=== PATIENT | female | born 1965 | race Caucasian/White ===

== ENCOUNTER 2022-10-08 15:20 | Inpatient (IN) | payer OTHER ==
[2022-10-08 16:42] LABS: Absolute Lymphocytes (CBC) 2.4 K/uL (0.7-4.9); Hematocrit 37.6 % (36.0-45.0); Lymphocytes % 21.6 % (15.3-44.8); MCV 83.4 fL (80-100); RBC Red Blood Cell Count 4.51 M/uL (3.86-4.86)
[2022-10-08 16:43] LABS: Protime INR 1.48
--- NOTE | 2022-10-08 16:48 | RAD REPORT ---
EXAM DESCRIPTION: RAD - Forearm Left - 10/08/2022 4:42 pm CLINICAL HISTORY: PAIN COMPARISON: No comparisons FINDINGS/IMPRESSION: No acute fracture. No malalignment. No significant focal degenerative changes.
--- NOTE | 2022-10-08 16:49 | RAD REPORT ---
EXAM DESCRIPTION: RAD - Foot Right 3 View - 10/08/2022 4:42 pm CLINICAL HISTORY: PAIN COMPARISON: No comparisons FINDINGS/IMPRESSION: No acute fracture. No malalignment. Mild degenerative changes are present at th e first MTP joint. Mild midfoot degenerative changes and calcaneal spurring.
[2022-10-08 16:51] LABS: SARS-COV-2 RT PCR NEGATIVE (NEGATIVE)
--- NOTE | 2022-10-08 16:51 | RAD REPORT ---
EXAM DESCRIPTION: RAD - Tib Fib Right - 10/08/2022 4:42 pm CLINICAL HISTORY: PAIN COMPARISON: No comparisons FINDINGS/IMPRESSION: No acute fracture. No malalignment. No significant focal degenerative changes.
--- NOTE | 2022-10-08 16:52 | RAD REPORT ---
EXAM DESCRIPTION: RAD - Chest Single View - 10/08/2022 4:42 pm CLINICAL HISTORY: DYSPNEA COMPARISON: No comparisons FINDINGS: Lines: None. Lungs: Mild diffuse prominence of the pulmonary interstitium. Pleural: No significant pleural effusions or pneumothorax. Cardiac: Cardiomegaly. Mediastinum: Within normal limits. Bones: No acute fractures. Other: None IMPRESSION: Possible interstitial edema. Cardiomegaly.
[2022-10-08 16:53] LABS: Albumin 3.5 g/dL (3.4-5.0); Bilirubin Direct 0.1 mg/dL (0-0.2); Bilirubin Total 0.4 mg/dL (0.2-1.0); Magnesium 2.1 mg/dL (1.8-2.4); Potassium 4.9 mmol/L (3.5-5.1); Protein, Total 8.2 g/dL (6.4-8.2); Troponin High Sensitivity 56.5 pg/mL (<58.9)
[2022-10-08] MEDS ORDERED: METHYLPREDNISOLONE 125 MG INJ ONE (16:56)
[2022-10-08] MEDS ORDERED: IPRATROPIUM BROM 0.5MG/2.5ML ONE (16:56)
[2022-10-08] MEDS ORDERED: ALBUTEROL 2.5 MG/3 ML NEB SOL ONE (16:56)
--- NOTE | 2022-10-08 19:54 | EDPHYS ---
Physician Documentation [facility] Name: Zoraida Mcleod Age: 57 yrs Sex: Female : 1965 Arrival Date: 10/08/2022 Time: 15:22 Bed 24 Private MD: ED Physician Fitz Ewing HPI: 10/08 18:06 This 57 yrs old Female presents to ER via Ambulatory with complaints of Breathing kb Difficulty, Fall Injury, Foot Injury. 18:06 The patient has shortness of breath at rest. Onset: The symptoms/episode began/occurred kb yesterday. Duration: The symptoms are continuous. The patient's shortness of breath is aggravated by exertion, is alleviated by nothing. Associated signs and symptoms: Pertinent positives: fever. Severity of symptoms: At their worst the symptoms were moderate in the emergency department the symptoms are unchanged. The patient has experienced similar episodes in the past. The patient has not recently seen a physician. Pt reports shortness of breath that started yesterday afternoon. Reports she had three syncopal episodes as well. States she had a fever at home. . Historical: - Allergies: 15:33 Morphine; ll1 - PMHx: 15:33 COPD; Hypertensive disorder; ll1 - PSHx: 15:33 Tonsillectomy; "tubes tied"; ll1 - Immunization history:: Client reports having NOT received the Covid vaccine. - Social history:: Smoking status: Patient reports the use of cigarette tobacco products, smokes one-half pack cigarettes per day. ROS: 18:05 Constitutional: Negative for fever, chills, and weight loss. kb 18:05 Constitutional: Positive for fever. 18:05 Respiratory: Positive for dyspnea on exertion, shortness of breath. 18:05 Neuro: Positive for syncope. 18:05 All other systems are negative. Exam: 17:06 ECG was reviewed by the Attending Physician. kb 18:05 Constitutional: This is a well developed, well nourished patient who is awake, alert, kb and in no acute distress. Head/Face: Normocephalic, atraumatic. ENT: Moist Mucous membranes Cardiovascular: Regular rate and rhythm with a normal S1 and S2. No gallops, murmurs, or rubs. No pulse deficits. Abdomen/GI: Soft, non-tender. No distention Skin: Warm, dry with normal turgor. Normal color. MS/ Extremity: Pulses equal, no cyanosis. Neurovascular intact. Full, normal range of motion. Neuro: Awake and alert, GCS 15, oriented to person, place, time, and situation. Moves all extremities. Normal gait. Psych: Awake, alert, with orientation to person, place and time. Behavior, mood, and affect are within normal limits. 18:05 Respiratory: mild respiratory distress is noted, Respirations: labored breathing, that is mild, Breath sounds: are clear throughout. Vital Signs: 15:29 BP 157 / 107; Pulse 122; Resp 18; Pulse Ox 91% on R/A; eh3 15:34 BP 157 / 107; Pulse 120; Resp 24; Temp 98.1(O); Pulse Ox 95% on R/A; Height 5 ft. 2 in. ll1 (157.48 cm); Pain 5/10; 16:30 BP 143 / 95; Pulse 112; Resp 20; Pulse Ox 95% on 3 lpm NC; eh3 17:30 BP 143 / 95; eh3 18:30 BP 141 / 76; Pulse 105; Resp 21; Pulse Ox 94% on 3 lpm NC; eh3 19:30 BP 143 / 97; Pulse 101; Resp 26; Pulse Ox 93% on 3 lpm NC; eh3 21:30 BP 145 / 74; Pulse 110; Resp 20; Pulse Ox 97% on 3 lpm NC; eh3 22:30 BP 145 / 74; Pulse 110; Resp 22; Pulse Ox 97% on R/A; eh3 MDM: 15:25 Patient medically screened. kb 18:05 Data reviewed: vital signs, nurses notes. Data interpreted: Pulse oximetry: on room air kb is 95 %. Interpretation: normal. 19:53 Counseling: I had a detailed discussion with the patient and/or guardian regarding: the kb historical points, exam findings, and any diagnostic results supporting the discharge/admit diagnosis, lab results, radiology results, the need for further work-up and treatment in the hospital. Physician consultation: Shanita Manuel PA-C was contacted at 19:53, regarding admission, to the telemetry unit. patient's condition. 10/08 15:30 Order name: Basic Metabolic Panel; Complete Time: 16:59 kb 10/08 15:30 Order name: CBC with Diff; Complete Time: 16:59 kb 10/08 15:30 Order name: CPK; Complete Time: 16:59 kb 10/08 15:30 Order name: Hepatic Function; Complete Time: 16:59 kb 10/08 15:30 Order name: Magnesium; Complete Time: 16:59 kb 10/08 15:30 Order name: Protime (+inr); Complete Time: 16:44 kb 10/08 15:30 Order name: Ptt, Activated; Complete Time: 16:44 kb 10/08 15:30 Order name: Troponin High Sensitivity; Complete Time: 16:59 kb 10/08 15:32 Order name: Blood Culture Adult (2) kb 10/08 15:32 Order name: Lactate w/ 2H reflex if indic.; Complete Time: 16:45 kb 10/08 15:32 Order name: COVID-19/FLU A+B; Complete Time: 16:59 kb 10/08 17:02 Order name: BNP; Complete Time: 19:25 kb 10/08 17:02 Order name: D-Dimer; Complete Time: 19:41 kb 10/08 21:48 Order name: Urine Dipstick-Ancillary; Complete Time: 21:50 EDMS 10/08 15:30 Order name: EKG; Complete Time: 15:31 kb 10/08 15:30 Order name: Cardiac monitoring; Complete Time: 15:47 kb 10/08 15:30 Order name: EKG - Nurse/Tech; Complete Time: 15:47 kb 10/08 15:30 Order name: IV Saline Lock; Complete Time: 18:00 kb 10/08 15:30 Order name: Labs collected and sent; Complete Time: 18:00 kb 10/08 15:30 Order name: NPO; Complete Time: 15:31 kb 10/08 15:30 Order name: O2 Per Protocol; Complete Time: 15:47 kb 10/08 15:30 Order name: Chest Single View XRAY; Complete Time: 16:59 kb 10/08 15:30 Order name: Forearm Left XRAY; Complete Time: 16:59 kb 10/08 15:30 Order name: Tib Fib Right XRAY; Complete Time: 16:59 kb 10/08 15:30 Order name: Foot Right 3 View XRAY; Complete Time: 16:59 kb 10/08 19:40 Order name: CT Chest For PE Angio; Complete Time: 22:48 kb 10/08 15:30 Order name: O2 Sat Monitoring; Complete Time: 15:31 kb 10/08 15:30 Order name: Urine Dipstick-Ancillary (obtain specimen); Complete Time: 22:28 kb 10/08 18:05 Order name: Vital Signs; Complete Time: 18:41 kb EC:06 Rate is 114 beats/min. Rhythm is regular. QRS [place] is Normal. [place] interval is normal at kb 136 msec. QRS interval is normal at 90 msec. QT interval is normal at 493 msec. Administered Medications: 18:00 Drug: SOLU-Medrol (methylPrednisoLONE) 125 mg Route: IVP; Site: right antecubital; eh3 18:41 Follow up: Response: No adverse reaction eh3 18:00 Drug: Albuterol 2.5 mg Route: Inhalation; eh3 18:41 Follow up: Response: Wheezing diminished eh3 18:00 Drug: AtroVENT (ipratropium) Aerosol 0.5 mg Route: Inhalation; eh3 18:41 Follow up: Response: Wheezing diminished eh3 20:30 Drug: Lasix (furosemide) 20 mg Route: IVP; Site: right upper arm; eh3 21:48 Follow up: Response: No adverse reaction eh3 Disposition Summary: 10/08/22 19:54 Hospitalization Ordered Hospitalization Status: Observation kb Provider: Issa Lopez Location: Telemetry/MedSurg (observation) kb Condition: Stable kb Problem: new kb Symptoms: are unchanged kb Bed/Room Type: Standard Room Assignment: 209(10/08/22 22:53) eb1 Diagnosis - COPD/ Chronic obstructive pulmonary disease with (acute) exacerbation kb - Unspecified combined systolic (congestive) and diastolic (congestive) heart failure kb Forms: - Medication Reconciliation Form kb - SBAR form kb Addendum: 10/11/2022 20:19 Co-signature as Attending Physician, Fitz Ewing MD I agree with the assessment and r t plan of care. Signatures: Dispatcher [employer] Nidhi Rose, KIRSTEN-C REAL ESTATE LOAN OFFICER-Dilia Murdock RN RN eb1 Brea Zaragoza RN RN ll1 Kayla Bautista RN RN eh3 Shanita Manuel, PA-C PA-C sb4 Fitz Ewing MD MD rt Corrections: (The following items were deleted from the chart) 10/08 22:53 19:54 kb eb1
--- NOTE | 2022-10-08 19:54 | ER ---
Nurse's Notes [facility] Name: Zoraida Mcleod Age: 57 yrs Sex: Female : 1965 Arrival Date: 10/08/2022 Time: 15:22 Bed 24 Private MD: Diagnosis: COPD/ Chronic obstructive pulmonary disease with (acute) exacerbation;Unspecified combined systolic (congestive) and diastolic (congestive) heart failure Presentation: 10/08 15:34 Chief complaint: Patient states: SOB for 2 days. Reports passing out x 3 since last ll1 night. L forearm and R leg pains from fall. Inhalers aren't helping. Fever 101.4 this morning at home. Coronavirus screen: Vaccine status: Patient reports being unvaccinated. Client denies travel out of the [place] in the last 14 days. difficulty breathing, fatigue, fever, headache, muscle pain, shortness of breath, Client presents with at least one sign or symptom that may indicate coronavirus-19. Standard/surgical mask placed on the client. Ebola Screen: Patient denies travel to an Ebola-affected area in the 21 days before illness onset. Initial Sepsis Screen: Does the patient meet any 2 criteria? RR > 20 per min. HR > 90 bpm. Yes Does the patient have a suspected source of infection? Yes: Productive cough/pneumonia. Risk Assessment: Do you want to hurt yourself or someone else? Patient reports no desire to harm self or others. Onset of symptoms was October 07, 2022. 15:34 Method Of Arrival: Ambulatory ll1 15:34 Acuity: VILLA 2 ll1 Triage Assessment: 15:33 General: Appears uncomfortable, Behavior is cooperative, appropriate for age. Pain: ll1 Complains of pain in back Pain currently is 5 out of 10 on a pain scale. Quality of pain is described as aching. Neuro: Reports a syncopal episode weakness. Cardiovascular: Reports lightheadedness, shortness of breath, syncope. Respiratory: Reports shortness of breath on exertion labored breathing Onset: The symptoms/episode began/occurred yesterday, the patient has severe shortness of breath. Historical: - Allergies: 15:33 Morphine; ll1 - PMHx: 15:33 COPD; Hypertensive disorder; ll1 - PSHx: 15:33 Tonsillectomy; "tubes tied"; ll1 - Immunization history:: Client reports having NOT received the Covid vaccine. - Social history:: Smoking status: Patient reports the use of cigarette tobacco products, smokes one-half pack cigarettes per day. Screenin:29 Abuse screen: Denies threats or abuse. Denies injuries from another. Nutritional eh3 screening: No deficits noted. Tuberculosis screening: No symptoms or risk factors identified. Fall Risk Fall in past 12 months (25 points). IV access (20 points). Gait- Weak (10 pts.). [place] Fall Scale indicates High Risk Score (45 or more points). Fall prevention measures have been instituted. Side Rails Up X 2 Placed Close to Nursing Station Frequent Obs/Assessments Occuring Family Present and informed to notify staff if the need to leave the bedside As available patient and family educated on Fall Prevention Program and Strategies. Assessment: 15:29 General: Appears in no apparent distress. uncomfortable, Behavior is cooperative, eh3 appropriate for age, anxious, Smells of alcohol. Pain:. 15:29 Pain: Complains of pain in chest Pain does not radiate. Pain currently is 3 out of 10 eh3 on a pain scale. Quality of pain is described as dull, Pain began 2-3 days ago. Is continuous. Neuro: Level of Consciousness is awake, alert, obeys commands, Oriented to person, place, time, situation. Cardiovascular: Capillary refill < 3 seconds Patient's skin is warm and dry. Rhythm is sinus tachycardia. Respiratory: Airway is patent Respiratory effort is even, labored, Respiratory pattern is regular, symmetrical, Breath sounds with crackles bilaterally. GI: No signs and/or symptoms were reported involving the gastrointestinal system. : No signs and/or symptoms were reported regarding the genitourinary system. EENT: No signs and/or symptoms were reported regarding the EENT system. Derm: No signs and/or symptoms reported regarding the dermatologic system. Musculoskeletal: No signs and/or symptoms reported regarding the musculoskeletal system. Circulation, motion, and sensation intact. Range of motion: intact in all extremities. 16:30 Reassessment: Patient and/or family updated on plan of care and expected duration. Pain eh3 level reassessed. Patient is alert, oriented x 3, equal unlabored respirations, skin warm/dry/pink. 17:30 Reassessment: Patient appears in no apparent distress at this time. Patient and/or eh3 family updated on plan of care and expected duration. Pain level reassessed. Pt removed NC. Verbalized understanding that breathing difficulty and insufficient SpO2 levels will most likely continue if she does not keep the NC in place. 18:30 Reassessment: Patient appears in no apparent distress at this time. Patient and/or eh3 family updated on plan of care and expected duration. Pain level reassessed. 19:30 Reassessment: Patient appears in no apparent distress at this time. Patient and/or eh3 family updated on plan of care and expected duration. Pain level reassessed. Pt did not have NC on. Replaced NC and reiterated importance of keeping NC in place for adequate oxygenation. 20:30 Reassessment: Patient appears in no apparent distress at this time. Patient and/or eh3 family updated on plan of care and expected duration. Pain level reassessed. Patient is alert, oriented x 3, equal unlabored respirations, skin warm/dry/pink. Pt removed all vital sign monitoring devices. Replaced monitors and pt verbalized understanding to leave monitors in place. 21:30 Reassessment: Patient appears in no apparent distress at this time. Patient and/or eh3 family updated on plan of care and expected duration. Pain level reassessed. 22:10 Reassessment: CT notified pt has appropriate IV for CT. bb 22:30 Reassessment: Patient appears in no apparent distress at this time. Patient and/or eh3 family updated on plan of care and expected duration. Pain level reassessed. Vital Signs: 15:29 BP 157 / 107; Pulse 122; Resp 18; Pulse Ox 91% on R/A; 3 15:34 BP 157 / 107; Pulse 120; Resp 24; Temp 98.1(O); Pulse Ox 95% on R/A; Height 5 ft. 2 in. ll1 (157.48 cm); Pain 5/10; 16:30 BP 143 / 95; Pulse 112; Resp 20; Pulse Ox 95% on 3 lpm NC; eh3 17:30 BP 143 / 95; eh3 18:30 BP 141 / 76; Pulse 105; Resp 21; Pulse Ox 94% on 3 lpm NC; eh3 19:30 BP 143 / 97; Pulse 101; Resp 26; Pulse Ox 93% on 3 lpm NC; eh3 21:30 BP 145 / 74; Pulse 110; Resp 20; Pulse Ox 97% on 3 lpm NC; eh3 22:30 BP 145 / 74; Pulse 110; Resp 22; Pulse Ox 97% on R/A; eh3 ED Course: 15:22 Patient arrived in ED. mr 15:24 Nidhi Comer, [facility] kb 15:24 Fitz Ewing MD is Attending Physician. kb 15:28 Kayla Bautista, XU is Primary Nurse. eh3 15:29 Patient has correct armband on for positive identification. Bed in low position. Call 3 light in reach. Side rails up X2. Client placed on continuous cardiac and pulse oximetry monitoring. NIBP monitoring applied. Door closed. Noise minimized. Warm blanket given. 15:29 Arm band placed on right wrist. eh3 15:33 Notified Nurse Practitioner and/or Physician Personnel Psychologist of vital signs. sepsis alert ll1 called. 15:36 Triage completed. ll1 16:15 Initial lab(s) drawn, by me, sent to lab. Inserted saline lock: 22 gauge in right upper iw arm, using aseptic technique. Blood collected. 16:43 Chest Single View XRAY In Process Unspecified. EDMS 16:44 Forearm Left XRAY In Process Unspecified. EDMS 16:44 Tib Fib Right XRAY In Process Unspecified. EDMS 16:44 Foot Right 3 View XRAY In Process Unspecified. EDMS 19:54 Issa Lopez MD is Hospitalizing Provider. kb 21:55 Missed attempt(s): 20 gauge in left antecubital area. Bleeding controlled, band aid bb applied, catheter tip intact. 22:00 Second set of blood cultures drawn by me. Accessed peripheral vein via ultrasound, bb utilizing dynamic ultrasound technique Powerglide midline 18g 10cm to left upper arm using hospital protocol with good blood return and flushes easily pt tolerated well. 22:28 CT Chest For PE Angio In Process Unspecified. EDMS 23:35 No provider procedures requiring assistance completed. Patient admitted, IV remains in [address] Administered Medications: 18:00 Drug: SOLU-Medrol (methylPrednisoLONE) 125 mg Route: IVP; Site: right antecubital; 3 18:41 Follow up: Response: No adverse reaction 3 18:00 Drug: Albuterol 2.5 mg Route: Inhalation; 3 18:41 Follow up: Response: Wheezing diminished eh3 18:00 Drug: AtroVENT (ipratropium) Aerosol 0.5 mg Route: Inhalation; eh3 18:41 Follow up: Response: Wheezing diminished eh3 20:30 Drug: Lasix (furosemide) 20 mg Route: IVP; Site: right upper arm; eh3 21:48 Follow up: Response: No adverse reaction eh3 Medication: 23:35 VIS not applicable for this client. eh3 Outcome: 19:54 Decision to Hospitalize by Provider. kb 23:39 Admitted to Med/surg accompanied by tech, via wheelchair, room 209, with oxygen, Report eh3 called to Eladia 23:39 Condition: stable 23:39 Instructed on the need for admit. 23:39 Patient left the ED. 3 Signatures: Dispatcher [employer] EDMS Nidhi Comer, MEDICAL ASSISTANT DERMATOLOGY-C MEDICAL ASSISTANT DERMATOLOGY-CkYamila Powell mr MaryChey, RN RN Kristin Green, XU MCNAIR iw Brea Zaragoza, RN RN [facility] Kayla Bautista RN RN eh3 Corrections: (The following items were deleted from the chart) 20:06 18:30 Reassessment: Patient appears in no apparent distress at this time. Patient eh3 and/or family updated on plan of care and expected duration. Pain level reassessed. Patient is alert, oriented x 3, equal unlabored respirations, skin warm/dry/pink. eh3 20:07 19:30 Reassessment: Patient appears in no apparent distress at this time. Patient eh3 and/or family updated on plan of care and expected duration. Pain level reassessed. 3 23:34 15:29 General: Appears in no apparent distress. uncomfortable, Behavior is cooperative, eh3 appropriate for age, anxious, eh3
[2022-10-08] MEDS ORDERED: FUROSEMIDE 20 MG/ 2ML VIAL ONE (20:28)
[2022-10-08 21:48] LABS: Urine Blood 1+ (Negative); Urine Glucose Negative (Negative); Urine Protein 2+ (Negative); Urine Specific Gravity >=1.030 (1.005-1.030)
--- NOTE | 2022-10-08 22:45 | RAD REPORT ---
EXAM DESCRIPTION: CT - Chest For Pe Angio - 10/08/2022 10:27 pm CLINICAL HISTORY: shortness of breath, elevated dd COMPARISON: No comparisons TECHNIQUE: Dynamically enhanced axial 3 mm thick images of the chest were obtained during administra tion of <100> mL Isovue 370 IV contrast. Coronal and oblique reconstruction images were generated and reviewed. Exam utilizes a protocol for optimal evaluation of pulmonary arterial tree. Maximum intensity projections 3D imaging was utilized All CT scans are performed using dose optimization technique as appropriate and may include automated exposure control or mA/KV adjustment according to patient size. FINDINGS: Chest Wall: No suspicious thyroid nodules or pathologic lymphadenopathy. Lungs: Solid right lower lobe pulmonary nodule measuring 14 millimeters. Interlobular septal thickeni ng. Pleura: Small left pleural effusion. Mediastinum/justine: No pathologic lymphadenopathy. Pulmonary arteries/Aorta: No filling defect identified. No aortic aneurysm. Heart: No significant pericardial effusion. Normal heart size. Upper abdomen: No acute abnormality. Bones: No acute abnormality. IMPRESSION: Negative for pulmonary embolism. Interlobular septal thickening and small effusions cons istent with interstitial edema. Indeterminate right lower lobe nodule. Neoplasm is within the differential. Consider PET/CT or [address] follow-up.
--- NOTE | 2022-10-08 23:14 | P.HP ---
Certification for Inpatient Patient admitted to: Inpatient With expected LOS: >2 Midnights Patient will require the following post-hospital care: None Practitioner: I am a practitioner with admitting privileges, knowledge of patient current condition, hospital course, and medical plan of care. Services: Services provided to patient in accordance with Admission requirements found in Title 42 Section 412.3 of the Code of Federal Regulations Patient History Date of Service: 10/09/22 Reason for admission: COPD/CHF Exacerbation History of Present Illness: Patient is a 57-year-old female with past medical history significant of type 2 diabetes [id number], hypertension, multiple CVAs on Xarelto, COPD, and factor V Leiden who presented to the ED with complaints of shortness of breath, cough, syncopal episodes, and fever. Patient reports that she has been having difficulty breathing for 2 days now which has caused her to pass out and fall (no head trauma). She was afebrile in ED but code sepsis was called as she met SIRS criteria with tachycardia, tachypnia, and respiratory source. Labs are significant for WBC 11, D-dimer 5106, BNP 2000. COVID and flu negative. Chest CT negative for PE but did show interlobular septal thickening and small effusions consistent with interstitial edema. Indeterminate right lower lobe nodule- Neoplasm is within differential. Patient denies prior diagnosis of COPD or CHF. She was given 125 mg Solu-Medrol, breathing treatment, 20 mg Lasix in the ED. she was additionally placed on supplemental O2. Patient has improved mildly with treatment and is admitted for further management. Allergies morphine Allergy (Verified 10/08/22 23:52) Anaphylaxis Home medications list reviewed: Yes - Past Medical/Surgical History Diabetic: Yes -: Type 2 Diabetes, Non-Insulin Dependent -: Factor V Leiden -: CVAs -: Hypertension -: Tubal Ligation -: Tonsillectomy Psychosocial/ Personal History: Patient lives at home alone. - Family History Mother -: Cancer Notes: unknown kind Father -: Cancer Notes: unknown kind paternal grandmother -: Diabetes - Social History Smoking Status: Current every day smoker Alcohol use: No CD- Drugs: No Caffeine use: Yes Place of Residence: Home Review of Systems General: Fever Respiratory: Cough, Shortness of Breath Physical Examination - Physical Exam General: Alert, In no apparent distress, Oriented x3, Obese HEENT: Atraumatic, PERRLA, EOMI, Sclerae nonicteric Neck: Supple, 2+ carotid pulse no bruit, No LAD, Without JVD or thyroid abnormality Respiratory: Crackles/rales Cardiovascular: Regular rate/rhythm, Normal S1 S2 Gastrointestinal: Normal bowel sounds, No tenderness Musculoskeletal: No tenderness Integumentary: No rashes Neurological: Normal speech, Normal strength at 5/5 x4 extr, Normal tone, Normal affect - Studies Laboratory Data (last 24 hrs) 10/08/22 16:17: PT 16.3 H, INR 1.48, APTT 31.2 10/08/22 16:17: WBC 11.00 H, Hgb 12.1, Hct 37.6, Plt Count 275 10/08/22 16:17: Sodium 139, Potassium 4.9, BUN 11, Creatinine 0.86, Glucose 141 H, Magnesium 2.1, Total Bilirubin 0.4, AST 23, ALT 30, Alkaline Phosphatase 95 Assessment and Plan - Problems (Diagnosis) (1) CHF (congestive heart failure) Current Visit: Yes Status: Acute Qualifiers: Heart failure type: unspecified Heart failure chronicity: acute Qualified Code(s): I50.9 - Heart failure, unspecified (2) COPD with acute exacerbation Current Visit: Yes Status: Acute (3) Hypertension Current Visit: Yes Status: Chronic Qualifiers: Hypertension type: primary hypertension Qualified Code(s): I10 - Essential (primary) hypertension (4) Type 2 diabetes mellitus Current Visit: Yes Status: Acute Qualifiers: Diabetes mellitus halfway insulin use: without halfway use Diabetes mellitus complication status: with hyperglycemia Qualified Code(s): E11.65 - Type 2 diabetes mellitus with hyperglycemia (5) Factor V Leiden Current Visit: Yes Status: Chronic (6) Chronic anticoagulation Current Visit: Yes Status: Chronic - Plan Factor V Leiden/Elevated d-dimer: Chest CT negative for PE. Venous US pending. No obvious swelling/erythema in extremities. Patient reports taking her xarelto consistently. Acute on chronic COPD: Patient denies any diagnosis of COPD. She is an everyday smoker. Scheduled breathing treatments and solumedrol. Pulmonology consulted. She is currently requiring 3L NC. Titrate and wean as tolerated. Nicoderm patch provided. Acute on chronic CHF: Chest CT with interstitial edema and BNP of 2000 suggestive of CHF. Patient has never been diagnosed. Echocardiogram ordered and cardiology consult in place. She received 20 mg lasix IV in ED. Will see how she responds. Reports recent weight gain, although unclear if from fluid or if moreso dietary. No pitting edema appreciated on physical exam. Daily weights. Monitor and replete electrolytes per protocol Reconcile and continue home medications for hypertension/diabetes Xarelto for VTE ppx Full code Discharge Plan: Home Plan to discharge in: Greater than 2 days - Advance Directives Does patient have a Living Will: No Does patient have a Durable POA for Healthcare: No - Code Status/Comfort Care Code Status Assessed: Yes (Full) Critical Care: No Time Spent Managing Pts Care (In Minutes): 50
[2022-10-08] MEDS ORDERED: D50W 25 GM/50 ML SYRINGE IV PRN (23:58)
[2022-10-08] MEDS ORDERED: ONDANSETRON 4 MG/2 ML VIAL IV PRN (23:58)
[2022-10-08] MEDS ORDERED: GLUCAGON 1 MG/VIAL IM PRN (23:58)
[2022-10-09] MEDS ORDERED: D10W 125 ML IV PRN (00:09)
[2022-10-09] MEDS: NICOTINE 21 MG/PAT TD PRN ×2 (00:22→23:23)
[2022-10-09] MEDS: METHYLPREDNISOLONE 40 MG INJ IV SCH ×3 (00:22→17:59)
[2022-10-09] MEDS: HYDROCODONE/APAP 10/325 TAB PO PRN ×2 (00:26→22:03)
[2022-10-09] MEDS: BENZONATATE 100 MG CAP PO PRN ×2 (00:26→08:37)
[2022-10-09] MEDS ORDERED: IPRATROPIUM BROM 0.5MG/2.5ML NEB SCH (02:00)
[2022-10-09] MEDS ORDERED: ALBUTEROL 2.5 MG/3 ML NEB SOL NEB SCH (02:00)
[2022-10-09 04:36] LABS: Absolute Lymphocytes (CBC) 0.6 K/uL (0.7-4.9); Hematocrit 33.3 % (36.0-45.0); Lymphocytes % 7.6 % (15.3-44.8); MCV 82.7 fL (80-100); MPV 8.2 fL (7.6-11.3); RBC Red Blood Cell Count 4.03 M/uL (3.86-4.86)
[2022-10-09 05:07] LABS: Magnesium 1.9 mg/dL (1.8-2.4); Potassium 3.9 mmol/L (3.5-5.1); Thyroid Stimulating Hormone 0.123 uIU/mL (0.360-3.740)
[2022-10-09 05:41] LABS: Blood Morphology Comment NOTED (NOT SEEN); Platelet Estimate ADEQ; Polychromasia 1+
[2022-10-09] MEDS ORDERED: ALBUTEROL 2.5 MG/3 ML NEB SOL NEB PRN (06:03)
[2022-10-09] MEDS ORDERED: IPRATROPIUM BROM 0.5MG/2.5ML NEB PRN (06:03)
[2022-10-09] MEDS: INSULIN -REGULAR HUMAN 50 UNIT/0.5 ML ML SQ SCH ×4 (07:30→20:58)
--- NOTE | 2022-10-09 07:41 | RAD REPORT ---
EXAM DESCRIPTION: USExtrem Venous W Compress Bil10/09/2022 5:34 am CLINICAL HISTORY: elevated d dimer COMPARISON: none FINDINGS: The common femoral, superficial femoral, popliteal and posterior tibial veins bilaterally are compressible and demonstrate augmentation. Doppler demonstrates good flow. Grayscale, color and spectral analysis performed on all vessels IMPRESSION: No evidence of deep venous thrombosis involving either lower extremity.
[2022-10-09] MEDS: POTASS/SODIUM PHOSPHATE 1 PKT POWD.PACK PO SCH ×3 (08:38→10:00)
[2022-10-09] MEDS ORDERED: ENOXAPARIN 40 MG/0.4 ML SQ SCH (09:00)
[2022-10-09] MEDS ORDERED: POTASSIUM CL SA 10 MEQ TAB PO ONE (09:00)
--- NOTE | 2022-10-09 17:30 | P.PN ---
Date of Service: 10/09/22 Subjective: Minimal improvement Continues to feel short of breath, continues with wheeze Denies any swelling in lower extremities today ROS: 10 point ROS as noted above, otherwise negative Physical exam GEN: Alert, oriented, mild distress HEENT: Normal conjunctiva, sclera anicteric CV: Regular rate and rhythm, trace b/l lower extremity edema Pulm: mild labored respirations on 2L NC, bilateral wheeze ABD: Soft, nontender, nondistended Neuro: Normal speech, normal affect Problem list Acute hypoxemic respiratory failure secondary to acute on chronic COPD exacerbation Possible acute CHF exacerbation Hypertension NIDDM 2 Factor V Leiden deficiency on chronic anticoagulation Nicotine dependence Wean oxygen as tolerated Continue Solu-Medrol, nebs, inhalers Does not use oxygen supplementation at home Pulmonology consulted Continues with moderate wheeze on exam CT chest negative for PE, noted some possible interstitial edema Echo ordered Cardiology consulted Patient denies history of CHF Received Lasix 20 mg IV in the ED Confirm home medications VTE: Xarelto Code: Full Dispo: Home, 2-3 days Time Spent Managing Pts Care (In Minutes): 35
[2022-10-09] MEDS: RIVAROXABAN 10 MG TABLET PO SCH (17:59)
[2022-10-09] MEDS: ALPRAZOLAM 1 MG TABLET PO PRN (23:22)
[2022-10-09] MEDS: ACETAMINOPHEN 325 MG TABLET PO PRN (23:33)
[2022-10-10] MEDS: METHYLPREDNISOLONE 40 MG INJ IV SCH ×2 (02:00→08:27)
[2022-10-10 02:12] VITALS: BMI 36.6
[2022-10-10 05:54] LABS: Absolute Lymphocytes (CBC) 1.3 K/uL (0.7-4.9); Hematocrit 34.2 % (36.0-45.0); Lymphocytes % 7.9 % (15.3-44.8); MCV 83.3 fL (80-100); MPV 8.2 fL (7.6-11.3); RBC Red Blood Cell Count 4.11 M/uL (3.86-4.86)
[2022-10-10 06:12] LABS: Potassium 4.7 mmol/L (3.5-5.1)
[2022-10-10] MEDS: INSULIN -REGULAR HUMAN 50 UNIT/0.5 ML ML SQ SCH ×4 (07:30→20:55)
[2022-10-10] MEDS: METFORMIN HCL 500 MG TAB PO SCH ×2 (08:26→16:47)
--- NOTE | 2022-10-10 08:46 | RAD REPORT ---
EXAM DESCRIPTION: Valeria Single View10/10/2022 6:48 am CLINICAL HISTORY: Chest pain COMPARISON: October 08, 2022 FINDINGS: Mild worsening in the mild bilateral interstitial lung opacities. Heart remains enlarged IMPRESSION: These findings probably represent mild CHF
--- NOTE | 2022-10-10 11:27 | P.CNS ---
Date of Consult: 10/10/22 Reason for Consult: Shortness of breath Chief Complaint: COPD/CHF Exacerbation History of Present Illness: Patient is 57 years of age with a metabolic syndrome addition to COPD admitted with shortness of breath no change since admission some interstitial changes on her CT scan suggestive of congestive heart failure b quit smoking about a month ago she is not on any home oxygen or bronchodilators no evidence of thromboembolism She has a history of factor V Leiden Leiden deficiency Allergies morphine Allergy (Verified 10/08/22 23:52) Anaphylaxis Home Medications: ALPRAZolam [Xanax*] 1 mg PO BEDTIME PRN 10/09/22 Albuterol Sulfate [Albuterol Sulfate Hfa] 2 puff IN QID PRN 10/09/22 Amitriptyline HCl 75 mg PO BEDTIME 10/09/22 Carisoprodol [Soma] 350 mg PO TID 10/09/22 Fluticasone Propion/Salmeterol [Wixela 250-50 Inhub] 2 puff IN TID PRN 10/09/22 Hydrocodone Bit/Acetaminophen [Hydrocodon-Acetaminophn 10-325] 10 - 325 mg PO PRN PRN 10/09/22 Losartan Potassium [Cozaar*] 50 mg PO BEDTIME 10/09/22 Metformin HCl 1,000 mg PO BID 10/09/22 Rivaroxaban [Xarelto] 20 mg PO BID 10/09/22 Simvastatin 40 mg PO BEDTIME 10/09/22 - Past Medical/Surgical History Diabetic: Yes -: Type 2 Diabetes, Non-Insulin Dependent -: Factor V Leiden -: CVAs -: Hypertension -: Tubal Ligation -: Tonsillectomy -: tubal ligation Psychosocial/ Personal History: Patient lives at home alone. - Family History Mother Medical History: Cancer Notes: unknown kind Father Medical History: Cancer Notes: unknown kind paternal grandmother Medical History: Diabetes - Social History Smoking Status: Current every day smoker Alcohol use: No CD- Drugs: No Caffeine use: Yes Place of Residence: Home Review of Systems 10-point ROS is otherwise unremarkable General: Weakness Respiratory: Shortness of Breath Physical Examination Temp Pulse Resp BP Pulse Ox 97.7 F 125 H 23 H 138/67 90 L 10/10/22 04:00 10/10/22 04:00 10/10/22 04:00 10/10/22 04:00 10/10/22 04:00 General: Alert, In no apparent distress, Oriented x3, Mild distress HEENT: Atraumatic Neck: Supple Respiratory: Crackles/rales, Expiratory wheezes Cardiovascular: No edema, Regular rate/rhythm, Normal S1 S2 Gastrointestinal: Normal bowel sounds, Soft and benign, Non-distended - Problems (1) Shortness of breath Current Visit: Yes Status: Acute Plan: Patient is 57 years of age admitted with acute dyspnea she has an history of COPD smoking about a month ago she is not any bronchodilators at home call findings suggestive of congestive heart failure she has a small pleural effusion out on IV Lasix labs reviewed no evidence of sepsis I change her over to p.o. prednisone 2D echo with Doppler (2) Factor V Leiden Current Visit: Yes Status: Chronic Plan: History history of strokes possible thromboembolism and is on maintenance dose of Xarelto 20 mg daily echocardiogram has been ordered
--- NOTE | 2022-10-10 15:37 | P.PN ---
Date of Service: 10/10/22 Subjective: feels slightly worse today increased dyspnea, at rest as well no worsening of swelling no fever/chills ROS: 10 point ROS as noted above, otherwise negative Physical exam GEN: Alert, oriented, mild distress HEENT: Normal conjunctiva, sclera anicteric CV: Regular rate and rhythm, trace b/l lower extremity edema Pulm: mild labored respirations on 3L NC, bilateral wheeze ABD: Soft, nontender, nondistended Neuro: Normal speech, normal affect Problem list Acute hypoxemic respiratory failure secondary to acute on chronic COPD exacerbation acute CHF exacerbation Hypertension NIDDM 2 Factor V Leiden deficiency on chronic anticoagulation Nicotine dependence Wean oxygen as tolerated Continue Solu-Medrol, nebs, inhalers Does not use oxygen supplementation at home Pulmonology consulted Continues with moderate wheeze on exam and crackles CT chest negative for PE, noted some possible interstitial edema Echo ordered Cardiology consulted Patient denies history of CHF Received Lasix 20 mg IV in the ED continue IV lasix 40mg daily, monitor I/Os Confirm home medications VTE: Xarelto - home dose Code: Full Dispo: Home, ~2-3 days Time Spent Managing Pts Care (In Minutes): 35
--- NOTE | 2022-10-10 16:34 | EKG ---
Test Date: 2022-10-08 Test Time: 15:41:10 Clinical Data Management Director: VIANCA MEASUREMENT RESULTS: Intervals: Rate: 114 PA: 136 QRSD: 90 QT: 358 QTc: 493 [place]: P: 67 PA: 136 QRS: 67 T: 51 INTERPRETIVE STATEMENTS: Sinus tachycardia Otherwise normal ECG No previous ECG available for comparison Electronically Signed On 10-10-22 16:33:35 COMPOSITOR APPRENTICE by Freddy Venegas
[2022-10-10] MEDS: FUROSEMIDE 40 MG/4 ML VIAL IV SCH (16:46)
[2022-10-10] MEDS: RIVAROXABAN 10 MG TABLET PO SCH (16:47)
--- NOTE | 2022-10-10 19:03 | CON ---
Date of Consultation: 10/09/2022 Reason For Consultation: CHF. History Of Present Illness: This -maum-zps female with history of diabetes, hypertension, history of CVA on Xarelto, COPD, active smoker, and Factor V Leiden mutation presented to the emergen cy room with cough and shortness of breath as well as fever. The symptoms have been going on for 2 d ays prior to the admission. She became severely short of breath and she passed out as reported, but no head trauma. The patient denies having any chest pain. No known history of cardiac disease and s he is speaking in full sentences and appears to be comfortable at the time of my evaluation. Past Medical History: As outlined above in HPI. Medications: Refer to reconciliation sheet for detailed list. Allergies: MORPHINE. Family History: No premature coronary artery disease or cancer. Social History: She is an active smoker. Does not drink, use any drugs. Review of Systems: All systems reviewed and they are negative except as mentioned in HPI. Physical Examination: Vital Signs: Reviewed. Head and Neck: Pupils are equal and reactive to light. Intact eye movements. No JVD. No cervical lymphadenopathy. Neck supple. Thyroid is not enlarged. Lungs: She has rhonchi and wheezing bilaterally. No accessory muscle use or muscle retraction. Heart: Regular rate and rhythm. No extra sounds. Abdomen: Soft, nontender. Bowel sounds positive. No organomegaly. No masses or hernia. No rigidi ty or rebound. Extremities: Trace edema bilaterally. No clubbing or cyanosis. Intact pulses. Skin: No rashes. Neurologic: Alert, awake, and oriented x3. No acute process appreciated. Investigations: Her troponin is negative, but NT proBNP is 2005. BUN 17, creatinine 1.27. The veno us Doppler of lower extremities is negative. Chest CTA is negative for pulmonary embolism, but there are signs of pulmonary edema and possible neoplasm. Assessment And Recommendation: 1.Congestive heart failure. Unknown status of her heart function, currently on Lasix and I agree wi th that. Carefully monitor BUN, creatinine, and electrolytes and please obtain echocardiogram. Pulm onary embolism was ruled out. 2.Chronic obstructive pulmonary disease with exacerbation. Has significant wheezing. Should improv e with further diuresis and patient is on steroids and nebulizers treatment. 3.Active smoker. She was counseled. I will monitor the patient with you. SR/REYNALDO Voice ID: [id number] Report ID: [id number]
--- NOTE | 2022-10-10 19:32 | PN ---
Date of Progress Note: 10/10/2022 Subjective: Seen at bedside, doing clinically well. Breathing has improved. Review of Systems: Mild shortness of breath, cough, and wheezing. No nausea, vomiting, or diarrhea. No chest pain. No dysuria, polyuria, or urinary urgency. All other systems reviewed and they are negative. Physical Examination: Vital Signs: Reviewed. Head And Neck: Pupils are equal and reactive to light. Intact eye movements. No JVD. No cervical lymphadenopathy. Neck is supple. Thyroid is not enlarged. Lungs: Decreased breathing sounds with wheezing. No accessory muscle use or muscle retraction. Heart: Irregularly irregular. No extra sounds. Abdomen: Soft, nontender. Bowel sounds positive. No organomegaly. No masses or hernia. No rigidi ty or rebound. Extremities: No clubbing or cyanosis. Intact pulses. Skin: No rashes. Neurologic: Alert, awake, oriented x3. No acute focal deficits appreciated. Investigations: Labs were reviewed. Assessment And Recommendation: 1.Shortness of breath, likely the combination of chronic obstructive pulmonary disease and heart joseph lure. Agree with diuresis. Carefully monitor BUN and creatinine and obtain an echo. 2.Elevated NT-proBNP. The patient has chronic heart failure. Ejection fraction is not known. Obtain echo and further recommendations accordingly. SR/MODL Voice ID: [id number] Report ID: [id number]
[2022-10-10] MEDS: LOSARTAN POTASSIUM 50 MG TABLET PO SCH (20:59)
[2022-10-10] MEDS: ATORVASTATIN 20 MG TAB PO SCH (20:59)
[2022-10-10] MEDS: AMITRIPTYLINE 25 MG TAB PO SCH (20:59)
[2022-10-10] MEDS: predniSONE 20 MG TAB PO SCH (21:00)
[2022-10-10] MEDS: ALPRAZOLAM 1 MG TABLET PO PRN (21:00)
[2022-10-10] MEDS: NICOTINE 21 MG/PAT TD PRN (22:57)
[2022-10-10] MEDS: BENZONATATE 100 MG CAP PO PRN (22:57)
[2022-10-11 06:59] LABS: Absolute Lymphocytes (CBC) 1.9 K/uL (0.7-4.9); Hematocrit 35.1 % (36.0-45.0); Lymphocytes % 13.4 % (15.3-44.8); MCV 83.6 fL (80-100); RBC Red Blood Cell Count 4.19 M/uL (3.86-4.86)
--- NOTE | 2022-10-11 08:31 | P.PN ---
Date of Service: 10/11/22 Subjective: nebs seemed to help received IV lasix starting to wheeze and feel short of breath again this morning ROS: 10 point ROS as noted above, otherwise negative Physical exam GEN: Alert, oriented, mild distress HEENT: Normal conjunctiva, sclera anicteric CV: Regular rate and rhythm, trace b/l lower extremity edema Pulm: mild labored respirations on 3L NC, bilateral wheeze ABD: Soft, nontender, nondistended Neuro: Normal speech, normal affect Problem list Acute hypoxemic respiratory failure secondary to acute on chronic COPD exacerbation acute CHF exacerbation Hypertension NIDDM 2 Factor V Leiden deficiency on chronic anticoagulation Nicotine dependence Wean oxygen as tolerated; off/on 2L NC this morning. Continue Solu-Medrol, nebs, inhalers Does not use oxygen supplementation at home Pulmonology consulted 1Continues with moderate wheeze on exam and crackles CT chest negative for PE, noted some possible interstitial edema Echo ordered Cardiology consulted Patient denies history of CHF Received Lasix 20 mg IV in the ED continue IV lasix 40mg daily, monitor I/Os Confirm home medications VTE: Xarelto - home dose Code: Full Dispo: Home, ~2-3 days Time Spent Managing Pts Care (In Minutes): 25
[2022-10-11] MEDS: INSULIN -REGULAR HUMAN 50 UNIT/0.5 ML ML SQ SCH ×4 (09:23→21:35)
[2022-10-11] MEDS: FUROSEMIDE 40 MG/4 ML VIAL IV SCH (09:24)
[2022-10-11] MEDS: predniSONE 20 MG TAB PO SCH ×2 (09:24→21:35)
[2022-10-11] MEDS: METFORMIN HCL 500 MG TAB PO SCH ×2 (09:24→16:17)
[2022-10-11] MEDS: BENZONATATE 100 MG CAP PO PRN ×2 (09:32→22:27)
[2022-10-11] MEDS: RIVAROXABAN 10 MG TABLET PO SCH (16:17)
[2022-10-11] MEDS: ACETAMINOPHEN 325 MG TABLET PO PRN (18:08)
[2022-10-11] MEDS: AMITRIPTYLINE 25 MG TAB PO SCH (21:35)
[2022-10-11] MEDS: ATORVASTATIN 20 MG TAB PO SCH (21:35)
[2022-10-11] MEDS: LOSARTAN POTASSIUM 50 MG TABLET PO SCH (21:35)
[2022-10-12] MEDS ORDERED: HOME MED 1 EA UNK (Fluticasone Propion/Salmeterol [Wixela 250-50 Inhub] Blst.W.Dev) IH PRN (06:41)
--- NOTE | 2022-10-12 06:43 | P.PN ---
Date of Service: 10/12/22 Subjective: intermittently on O2 supplementation overnight feeling better still wheeze, dyspnea on exertion ROS: 10 point ROS as noted above, otherwise negative Physical exam GEN: Alert, oriented, NAD HEENT: Normal conjunctiva, sclera anicteric CV: Regular rate and rhythm, trace b/l lower extremity edema Pulm: mild labored respirations on 1L NC, mild bilateral wheeze ABD: Soft, nontender, nondistended Neuro: Normal speech, normal affect Problem list Acute hypoxemic respiratory failure secondary to acute on chronic COPD exacerbation acute CHF exacerbation Hypertension NIDDM 2 Factor V Leiden deficiency on chronic anticoagulation Nicotine dependence Wean oxygen as tolerated; off/on overnight Continue Solu-Medrol, nebs, inhalers Does not use oxygen supplementation at home Pulmonology consulted wheeze continues, but improving CT chest negative for PE, noted some possible interstitial edema Echo ordered Cardiology consulted Patient denies history of CHF Received Lasix 20 mg IV in the ED continue IV lasix 40mg daily, monitor I/Os improving check CXR today Confirm home medications VTE: Xarelto - home dose Code: Full Dispo: Home, likely tomorrow pending echo, further improvement, off O2 and stable Time Spent Managing Pts Care (In Minutes): 25
[2022-10-12] MEDS: INSULIN -REGULAR HUMAN 50 UNIT/0.5 ML ML SQ SCH ×4 (08:09→21:00)
[2022-10-12] MEDS: METFORMIN HCL 500 MG TAB PO SCH ×2 (08:10→16:16)
[2022-10-12] MEDS: predniSONE 20 MG TAB PO SCH ×2 (08:10→21:14)
[2022-10-12] MEDS: FUROSEMIDE 40 MG/4 ML VIAL IV SCH (08:10)
[2022-10-12 08:22] LABS: Hematocrit 38.5 % (36.0-45.0); MCV 82.2 fL (80-100); MPV 7.8 fL (7.6-11.3); RBC Red Blood Cell Count 4.68 M/uL (3.86-4.86)
--- NOTE | 2022-10-12 09:20 | RAD REPORT ---
EXAM DESCRIPTION: Valeria Pa And Lat (2 Views)10/12/2022 9:14 am CLINICAL HISTORY: Hypoxia COMPARISON: October 10, 2022 FINDINGS: Pulmonary opacities have resolved The heart is mildly enlarged IMPRESSION: Resolution of CHF
[2022-10-12] MEDS: ACETAMINOPHEN 325 MG TABLET PO PRN ×2 (16:16→21:13)
[2022-10-12] MEDS: RIVAROXABAN 10 MG TABLET PO SCH (16:16)
[2022-10-12] MEDS: ALPRAZOLAM 1 MG TABLET PO PRN (21:13)
[2022-10-12] MEDS: BENZONATATE 100 MG CAP PO PRN (21:13)
[2022-10-12] MEDS: ATORVASTATIN 20 MG TAB PO SCH (21:13)
[2022-10-12] MEDS: LOSARTAN POTASSIUM 50 MG TABLET PO SCH (21:17)
[2022-10-12] MEDS: AMITRIPTYLINE 25 MG TAB PO SCH (21:17)
[2022-10-13 05:00] VITALS: TEMP 97
[2022-10-13 08:03] LABS: Magnesium 2.1 mg/dL (1.8-2.4); Potassium 4.1 mmol/L (3.5-5.1)
[2022-10-13 08:28] VITALS: BP 117/61
--- NOTE | 2022-10-13 08:55 | P.DS ---
Admission Date: 10/08/22 Discharge Date: 10/13/22 Disposition: ROUTINE DISCHARGE Discharge Condition: GOOD Reason for Admission: COPD/CHF Exacerbation Consultations: Cardiology - Dr. Theo Garzon - Dr. Mota Brief History of Present Illness: 57yo F, PMH: NIDDM2, HTN, multiple CVAs on Xarelto, COPD, and factor V Leiden who presented to the ED with complaints of shortness of breath, cough, syncopal episodes, and fever. Patient reports that she has been having difficulty breathing for 2 days now which has caused her to pass out and fall (no head trauma). She was afebrile in ED but code sepsis was called as she met SIRS criteria with tachycardia, tachypnia, and respiratory source. Labs are significant for WBC 11, D-dimer 5106, BNP 2000. COVID and flu negative. Chest CT negative for PE but did show interlobular septal thickening and small effusions consistent with interstitial edema. Indeterminate right lower lobe nodule- Neoplasm is within differential. Patient denies prior diagnosis of COPD or CHF. She was given 125 mg Solu-Medrol, breathing treatment, 20 mg Lasix in the ED. she was additionally placed on supplemental O2. Hospital Course: Problem list Acute hypoxemic respiratory failure secondary to acute on chronic COPD exacerbation acute CHF exacerbation Hypertension NIDDM 2 Factor V Leiden deficiency on chronic anticoagulation Nicotine dependence Patient presented with hypoxia and shortness of breath. Workup and imaging most consistent with a combination of CHF and COPD exacerbations. Pulmonology and Cardiology were consulted. Patient had improvement with COPD treatment - steroids, nebs, inhalers, and with daily lasix. He potassium remained normal and stable without repletion. She was weaned to room air and was ambulating well. Due to the holiday and weekends, unable to obtain an echocardiogram. Patient has significantly improved, chest x-ray is clear. Echocardiogram can be obtained as outpatient. She is deemed stable for discharge home. Recommend repeat blood work in 1 week to monitor renal function and potassium on lasix. Follow up: PCP within [address] Mota in 1-2 weeks. Can help arrange echocardiogram as outpatient. Cardiology in a few weeks Vital Signs/Physical Exam: Temp Pulse Resp BP Pulse Ox 97.0 F 109 H 18 117/61 94 10/13/22 08:00 10/13/22 08:00 10/13/22 08:00 10/13/22 08:00 10/13/22 08:00 Physical exam GEN: Alert, oriented, NAD HEENT: Normal conjunctiva, sclera anicteric CV: Regular rate and rhythm, trace b/l lower extremity edema Pulm: non-labored respirations, clear to auscultation ABD: Soft, nontender, nondistended Neuro: Normal speech, normal affect Laboratory Data at Discharge: WBC 11.10 K/uL (4.3-10.9) H 10/12/22 08:07 Hgb 12.6 g/dL (12.0-15.0) D 10/12/22 08:07 Hct 38.5 % (36.0-45.0) 10/12/22 08:07 Plt Count 296 K/uL (152-406) 10/12/22 08:07 PT 16.3 SECONDS (9.5-12.5) H 10/08/22 16:17 INR 1.48 10/08/22 16:17 APTT 31.2 SECONDS (24.3-36.9) 10/08/22 16:17 Sodium 135 mmol/L (136-145) L 10/13/22 05:56 Potassium 4.1 mmol/L (3.5-5.1) 10/13/22 05:56 BUN 28 mg/dL (7-18) H 10/13/22 05:56 Creatinine 1.10 mg/dL (0.55-1.3) 10/13/22 05:56 Glucose 327 mg/dL (74-106) H 10/13/22 05:56 Phosphorus 2.0 mg/dL (2.5-4.9) L 10/09/22 03:42 Magnesium 2.1 mg/dL (1.8-2.4) 10/13/22 05:56 Total Bilirubin 0.4 mg/dL (0.2-1.0) 10/08/22 16:17 AST 23 U/L (15-37) 10/08/22 16:17 ALT 30 U/L (12-78) 10/08/22 16:17 Alkaline Phosphatase 95 U/L (45-117) 10/08/22 16:17 Triglycerides 90 mg/dL (<150) 10/09/22 03:42 Cholesterol 175 mg/dL (<200) 10/09/22 03:42 HDL Cholesterol 52 mg/dL (40-60) 10/09/22 03:42 Cholesterol/HDL Ratio 3.37 10/09/22 03:42 Home Medications: ALPRAZolam [Xanax*] 1 mg PO BEDTIME PRN 10/09/22 Albuterol Sulfate [Albuterol Sulfate Hfa] 2 puff IN QID PRN 10/09/22 Amitriptyline HCl 75 mg PO BEDTIME 10/09/22 Carisoprodol [Soma] 350 mg PO TID 10/09/22 Fluticasone Propion/Salmeterol [Wixela 250-50 Inhub] 2 puff IN TID PRN 10/09/22 Hydrocodone Bit/Acetaminophen [Hydrocodon-Acetaminophn 10-325] 10 - 325 mg PO PRN PRN 10/09/22 Losartan Potassium [Cozaar*] 50 mg PO BEDTIME 10/09/22 Metformin HCl 1,000 mg PO BID 10/09/22 Rivaroxaban [Xarelto] 20 mg PO BID 10/09/22 Simvastatin 40 mg PO BEDTIME 10/09/22 Furosemide 40 mg PO DAILY 30 Days #30 tab 10/13/22 predniSONE [Prednisone*] 20 mg PO BID 4 Days #8 tab 10/13/22 New Medications: Furosemide 40 mg PO DAILY 30 Days #30 tab predniSONE [Prednisone*] 20 mg PO BID 4 Days #8 tab Physician Discharge Instructions: Patient presented with hypoxia and shortness of breath. Workup and imaging most consistent with a combination of CHF and COPD exacerbations. Pulmonology and Cardiology were consulted. Patient had improvement with COPD treatment - steroids, nebs, inhalers, and with daily lasix. He potassium remained normal and stable without repletion. She was weaned to room air and was ambulating well. Due to the holiday and weekends, unable to obtain an echocardiogram. Patient has significantly improved, chest x-ray is clear. Echocardiogram can be obtained as outpatient. She is deemed stable for discharge home. Recommend repeat blood work in 1 week to monitor renal function and potassium on lasix. Follow up: PCP within [address] Mota in 1-2 weeks. Can help arrange echocardiogram as outpatient. Cardiology in a few weeks Call [phone] for any questions regarding hospital stay E-script sent to [facility] in [place] Followup: EVELINE MOSQUERA [Primary Care Provider] - Time spent managing pt's care (in minutes): 45
[2022-10-13] MEDS: FUROSEMIDE 40 MG/4 ML VIAL IV SCH (09:10)
[2022-10-13] MEDS: predniSONE 20 MG TAB PO SCH (09:11)
[2022-10-13] MEDS: INSULIN -REGULAR HUMAN 50 UNIT/0.5 ML ML SQ SCH (09:11)
[2022-10-13] MEDS: METFORMIN HCL 500 MG TAB PO SCH (09:11)
[2022-10-13] MEDS: BENZONATATE 100 MG CAP PO PRN (09:16)
[2022-10-13] MEDS: ACETAMINOPHEN 325 MG TABLET PO PRN (09:16)
[2022-10-13 09:57] VITALS: O2SAT 96
--- NOTE | 2022-10-13 13:41 | ECHO ---
HEIGHT: 5 ft 2 in WEIGHT: 200 lb 0 oz DATE OF STUDY: 10/13/[address]: Shanita Manuel 2-DIMENSIONAL: YES M.MODE: YES DOPPLER: YES COLOR FLOW: YES TDS: PORTABLE: YES DEFINITY: BUBBLE STUDY: DIAGNOSIS: NEW ONSET CONGESTIVE HEART FAILURE CARDIAC HISTORY: CATHERIZATION: NO SURGERY: NO PROSTHETIC VALVE: NO PACEMAKER: NO MEASUREMENTS (cm) DIASTOLIC (NORMALS) SYSTOLIC (NORMALS) IVSd 1.3 (0.6-1.2) LA Diam 3.0 (1.9-4.0) LVEF 35% LVIDd 5.2 (3.5-5.7) LVIDs 5.2 (2.0-3.5) %FS 17% LVPWd 1.4 (0.6-1.2) Ao Diam 3.0 (2.0-3.7) 2 DIMENSIONAL ASSESSMENT: RIGHT ATRIUM: NORMAL LEFT ATRIUM: NORMAL RIGHT VENTRICLE: NORMAL LEFT VENTRICLE: DILATED LEFT VENTRICLE TRICUSPID VALVE: NORMAL MITRAL VALVE: MILD MITRAL REGURGITATION PULMONIC VALVE: NORMAL AORTIC VALVE: NORMAL PERICARDIAL EFFUSION: NONE AORTIC ROOT: NORMAL LEFT VENTRICULAR WALL MOTION: ANTERIOR/ YOLANDA SEPTAL HYPOKINESIS DOPPLER/COLOR FLOW: SEE BELOW COMMENTS: 1. MODERATELY DEPRESSED LEFT VENTRICULAR EJECTION FRACTION 30-35% 2. YOLANDA SEPTAL/ ANTERIOR HYPOKINESIS 3. DILATED LEFT VENTRICLE (SEVERE) 4. MILD MITRAL REGURGITATION TECHNOLOGIST: KRANTHI GOMEZ
== END 2022-10-13 10:04 | disposition home or self-care (01) | DRG 291 ==
LOC: ER 15:20 → 2ND 22:51
PROVIDERS: ADMIT Hospitalist; ATTEND Hospitalist
DX: I11.0 Hypertensive heart disease with heart failure (principal); I50.21 Acute systolic (congestive) heart failure; J96.01 Acute respiratory failure with hypoxia; J44.1 Chronic obstructive pulmonary disease with (acute) exacerbation; D68.2 Hereditary deficiency of other clotting factors; E11.65 Type 2 diabetes mellitus with hyperglycemia; E66.9 Obesity, unspecified; F17.210 Nicotine dependence, cigarettes, uncomplicated; Z60.2 Problems related to living alone; Z88.5 Allergy status to narcotic agent; Z79.01 Long term (current) use of anticoagulants; Z79.84 Long term (current) use of oral hypoglycemic drugs; Z79.52 Long term (current) use of systemic steroids; Z86.73 Personal history of transient ischemic attack (TIA), and cerebral infarction without residual deficits; Z98.51 Tubal ligation status; Z68.36 Body mass index [BMI] 36.0-36.9, adult; Z28.310 Unvaccinated for COVID-19; Z79.899 Other long term (current) drug therapy; Z20.822 Contact with and (suspected) exposure to COVID-19
CPT/HCPCS: 0240U; 36415; 71045; 71046; 71275; 80048; 80061; 80076; 81003; 82550; 82947; 83036; 83605; 83735; 83880; 84100; 84439; 84443; 84484; 85025; 85027; 85379; 85610; 85730; 87040; 93005; 93306; 93970; 94640; 94760; 99285; J1815; J1940; J2405; J2920; J2930; J7512; J7613; J7644; Q9967

== ENCOUNTER 2023-05-27 16:10 | Inpatient (IN) | payer OTHER ==
--- NOTE | 2023-05-27 17:44 | RAD REPORT ---
EXAM DESCRIPTION: RAD - Chest Single View - 05/27/2023 5:34 pm CLINICAL HISTORY: SOB COMPARISON: Chest Pa And Lat (2 Views) dated 10/12/2022; Chest Single View dated 10/10/2022; Chest S mona View dated 10/08/2022 FINDINGS: Lines: None. Lungs: Increased prominence of the pulmonary interstitium. Pleural: Left pleural effusion suspected. Difficult to exclude a small right effusion. Cardiac: Cardiomegaly. Mediastinum: Within normal limits. Bones: No acute fractures. Other: None IMPRESSION: Increased prominence of the pulmonary interstitium suggesting mild edema.
[2023-05-27] MEDS ORDERED: METHYLPREDNISOLONE 125 MG INJ ONE (19:16)
[2023-05-27] MEDS ORDERED: LEVALBUTEROL 1.25 MG/3 ML NEB ONE (19:17)
[2023-05-27 19:27] LABS: Absolute Lymphocytes (CBC) 2.4 K/uL (0.7-4.9); Hematocrit 36.4 % (36.0-45.0); MCV 78.3 fL (80-100); MPV 8.2 fL (7.6-11.3); RBC Red Blood Cell Count 4.66 M/uL (3.86-4.86)
[2023-05-27 20:58] LABS: Potassium 3.7 mEq/L (3.5-5.1); Troponin High Sensitivity 47.8 pg/mL (<58.9)
--- NOTE | 2023-05-27 21:59 | RAD REPORT ---
EXAM DESCRIPTION: CT - Chest For Pe Angio - 05/27/2023 9:41 pm CLINICAL HISTORY: SOB COMPARISON: Chest For Pe Angio dated 10/08/2022 TECHNIQUE: Dynamically enhanced axial 3 mm thick images of the chest were obtained during administra tion of <100> mL Isovue 370 IV contrast. Coronal and oblique reconstruction images were generated and reviewed. Exam utilizes a protocol for optimal evaluation of pulmonary arterial tree. Maximum intensity projections 3D imaging was utilized All CT scans are performed using dose optimization technique as appropriate and may include automated exposure control or mA/KV adjustment according to patient size. FINDINGS: Chest Wall: No suspicious thyroid nodules or pathologic lymphadenopathy. Lungs: Solid right lower lobe pulmonary nodule measuring 1.9 cm is unchanged. This may represent a holley martoma or other benign process given the stability since 10/08/2022. Atelectasis as a fusions. Pleura: Small left pleural effusion. Mediastinum/justine: No pathologic lymphadenopathy. Pulmonary arteries/Aorta: Limited evaluation of the pulmonary arteries due to motion and suboptimal c ontrast opacification. Poor contrast calcification may be secondary to diminished cardiac output. No aortic aneurysm. Heart: No significant pericardial effusion. Mild cardiomegaly. Upper abdomen: Reflux of contrast into the hepatic veins. Bones: No acute abnormality. IMPRESSION: Limited evaluation for pulmonary emboli given motion artifact and suboptimal opacificati on of the segmental and subsegmental pulmonary arteries. This could be secondary to poor cardiac outp ut including right heart failure. Interstitial pulmonary edema is present, however. Stable right lower lobe pulmonary nodule since 10/08/2022 which would indicate a benign etiology.
--- NOTE | 2023-05-27 22:23 | EDPHYS ---
Physician Documentation [facility] Name: Zoraida Mcleod Age: 57 yrs Sex: Female : 1965 Arrival Date: 05/27/2023 Time: 16:10 Bed 6 Private MD: CHRISTIANO Physician Shane Pastor HPI: 05/27 16:33 This 57 yrs old Female presents to ER via Ambulatory with complaints of Shortness Of jmm Breath. 16:33 The patient has shortness of breath at rest. Onset: The symptoms/episode began/occurred jmm gradually, this morning. Duration: The symptoms are continuous, and are steadily getting worse. The patient's shortness of breath is aggravated by exertion, light activity, is alleviated by nothing. Associated signs and symptoms: Pertinent negatives: chest pain, fever. The patient has experienced similar episodes in the past. Historical: - Allergies: 16:29 Morphine; ll1 - PMHx: 16:29 COPD; Hypertensive disorder; ll1 - PSHx: 16:29 "tubes tied"; Tonsillectomy; hernia repair; ll1 - Immunization history:: Adult Immunizations up to date. - Social history:: Smoking status: Patient reports the use of cigarette tobacco products, denies chronic smoking, but will smoke occasionally. ROS: 16:33 Constitutional: Negative for fever, chills, and weight loss, Cardiovascular: Negative jmm for chest pain, palpitations, and edema. 16:33 Respiratory: Positive for shortness of breath. 16:33 Respiratory: Positive for cough, wheezing. 16:33 All other systems are negative. Exam: 16:33 Constitutional: This is a well developed, well nourished patient who is awake, alert, jmm and in no acute distress. Head/Face: atraumatic. Eyes: EOMI, no conjunctival erythema appreciated ENT: Moist Mucus Membranes Neck: Trachea midline, Supple Chest/axilla: Normal chest wall appearance and motion. Cardiovascular: Regular rate and rhythm. No edema appreciated Respiratory: Normal respirations, no respiratory distress appreciated Abdomen/GI: Non distended Back: Normal ROM 16:33 Skin: General appearance color normal MS/ Extremity: Moves all extremities, no obvious deformities appreciated, no edema noted to the lower extremities Neuro: Awake and alert Psych: Behavior is normal, Mood is normal, Patient is cooperative and pleasant 16:33 Respiratory: the patient does not display signs of respiratory distress, Respirations: normal, Breath sounds: wheezing: that is mild, is scattered. Vital Signs: 16:29 BP 157 / 75; Pulse 113; Resp 24; Temp 97; Pulse Ox 95% on R/A; Weight 86.18 kg; Height ll1 5 ft. 2 in. ; Pain 8/10; 18:23 BP 147 / 90; Pulse 110; Resp 18; Pulse Ox 99% on R/A; db 18:45 BP 141 / 99; Pulse 114; Resp 18; Pulse Ox 100% on R/A; db 21:45 BP 142 / 104; Pulse 104; Resp 20; Pulse Ox 92% on R/A; jb4 22:30 BP 154 / 107; Pulse 103; Resp 20; Pulse Ox 88% on R/A; jb4 23:00 BP 146 / 75; Pulse 108; Resp 20; Pulse Ox 92% on 2 lpm NC; jb4 16:29 Body Mass Index 34.75 (86.18 kg, 157.48 cm) ll1 16:29 Pain Scale: Adult ll1 MDM: 16:33 Patient medically screened. [facility] 22:21 Differential diagnosis: CHF exacerbation, Chronic Obstructive Pulmonary Disease jmm Myocardial Infarction pneumonia. Data reviewed: vital signs, nurses notes. Counseling: I had a detailed discussion with the patient and/or guardian regarding: the historical points, exam findings, and any diagnostic results supporting the discharge/admit diagnosis, lab results, radiology results, the need for further work-up and treatment in the hospital. ED course: I discussed the patient with IDRIS Noble whom accepted the patient to Dr. Santos's service. . 05/27 16:34 Order name: Basic Metabolic Panel; Complete Time: 20:59 [facility] 05/27 16:34 Order name: CBC with Diff; Complete Time: 19:38 [facility] 05/27 16:34 Order name: Troponin HS; Complete Time: 20:59 [facility] 05/27 16:34 Order name: SARS-COV-2 RT PCR; Complete Time: 19:38 [facility] 05/27 22:54 Order name: Urinalysis w/ reflexes [facility] 05/27 22:54 Order name: Basic Metabolic Panel [facility] 05/27 22:54 Order name: Basic Metabolic Panel [facility] 05/27 22:54 Order name: Basic Metabolic Panel [facility] 05/27 22:54 Order name: Basic Metabolic Panel [facility] 05/27 22:54 Order name: CBC with Automated Diff [facility] 05/27 22:54 Order name: CBC with Automated Diff EDMS 05/27 22:54 Order name: CBC with Automated Diff EDMS 05/27 22:54 Order name: CBC with Automated Diff EDMS 05/27 22:54 Order name: Magnesium EDMS 05/27 22:54 Order name: Magnesium EDMS 05/27 22:54 Order name: Magnesium EDMS 05/27 22:54 Order name: Magnesium EDMS 05/27 16:34 Order name: XRAY Chest (1 view); Complete Time: 18:03 [facility] 05/27 18:30 Order name: CT Chest For PE Angio; Complete Time: 22:06 [facility] 05/27 16:34 Order name: EKG; Complete Time: 16:34 [facility] 05/27 22:54 Order name: 60g Consistent Carbohydrate (ADA 1800/2000) [facility] 05/27 16:34 Order name: Cardiac monitoring; Complete Time: 21:27 [facility] 05/27 16:34 Order name: EKG - Nurse/Tech; Complete Time: 19:02 [facility] 05/27 16:34 Order name: IV Saline Lock; Complete Time: 21:27 [facility] 05/27 16:34 Order name: Labs collected and sent; Complete Time: 21:27 [facility] 05/27 16:34 Order name: O2 Per Protocol; Complete Time: 19:52 [facility] 05/27 16:34 Order name: O2 Sat Monitoring; Complete Time: 19:52 [facility] 05/27 19:06 Order name: Misc. Order: RECOLLECT GREEN TOP; Complete Time: 21:27 rv1 Administered Medications: 19:39 Drug: Levalbuterol Inhalation 1.25 mg Route: Inhalation; jb4 19:43 Drug: MethylPrednisoLONE IVP 125 mg Route: IVP; Site: left upper arm; jb4 Disposition Summary: 05/27/23 22:22 Hospitalization Ordered Hospitalization Status: Observation [facility] Provider: Demian Santos Location: Telemetry/MedSurg (observation) jm Condition: Stable jm Problem: new jmm Symptoms: are unchanged [facility] Bed/Room Type: Standard [facility] Room Assignment: 428(05/27/23 23:30) cg Diagnosis - COPD/ Chronic obstructive pulmonary disease with (acute) exacerbation jmmaurisio - Hypoxia ruslan Forms: - Medication Reconciliation Form jm - SBAR form cathie Signatures: Dispatcher [employer] Nitish Ledbetter PA PA jmm Garcia, Cindy RN RN cg Cralos Reynolds RN RN jb4 Brea Zaragoza RN RN ll1 Annette Gordon 1 Corrections: (The following items were deleted from the chart) 22:22 [facility] : 23:[address] [place] [address]
--- NOTE | 2023-05-27 22:23 | ER ---
Nurse's Notes [facility] Name: Zoraida Mcleod Age: 57 yrs Sex: Female : 1965 Arrival Date: 05/27/2023 Time: 16:10 Bed 6 Private MD: Diagnosis: COPD/ Chronic obstructive pulmonary disease with (acute) exacerbation;Hypoxia Presentation: 05/27 16:29 Chief complaint: Patient states: SOB and dizziness since 0130 AM. Coronavirus screen: ll1 Vaccine status: Patient reports being unvaccinated. Client denies travel out of the [place] in the last 14 days. difficulty breathing, shortness of breath, Client presents with at least one sign or symptom that may indicate coronavirus-19. Standard/surgical mask placed on the client. Ebola Screen: Patient denies travel to an Ebola-affected area in the 21 days before illness onset. Initial Sepsis Screen: Does the patient meet any 2 criteria? RR > 20 per min. HR > 90 bpm. No. Patient's initial sepsis screen is negative. Does the patient have a suspected source of infection? Yes: Productive cough/pneumonia. Risk Assessment: Do you want to hurt yourself or someone else? Patient reports no desire to harm self or others. Onset of symptoms was May 27, 2023. 16:29 Method Of Arrival: Ambulatory 1 16:29 Acuity: VILLA 2 ll1 Triage Assessment: 16:30 General: Appears uncomfortable, Behavior is calm, cooperative, appropriate for age. ll1 Pain: Complains of pain in chest. Neuro: Neuro: Reports dizziness. Cardiovascular: Reports chest pain, shortness of breath. Respiratory: Reports shortness of breath. 19:30 Respiratory: the patient has moderate shortness of breath. ha1 Historical: - Allergies: 16:29 Morphine; ll1 - PMHx: 16:29 COPD; Hypertensive disorder; ll1 - PSHx: 16:29 "tubes tied"; Tonsillectomy; hernia repair; ll1 - Immunization history:: Adult Immunizations up to date. - Social history:: Smoking status: Patient reports the use of cigarette tobacco products, denies chronic smoking, but will smoke occasionally. Screenin:10 [facility] ED Fall Risk Assessment (Adult) History of falling in the last 3 months, db including since admission No falls in past 3 months (0 pts) Confusion or Disorientation No (0 pts) Intoxicated or Sedated No (0 pts) Impaired Gait No (0 pts) Mobility Assist Device Used No (0 pt) Altered Elimination No (0 pt) Score/Fall Risk Level 0 - 2 = Low Risk Oriented to surroundings, Maintained a safe environment. Abuse screen: Denies threats or abuse. Denies injuries from another. Nutritional screening: No deficits noted. Tuberculosis screening: No symptoms or risk factors identified. Assessment: 18:45 Reassessment: Patient appears in no apparent distress at this time. Patient and/or db family updated on plan of care and expected duration. Pain level reassessed. Patient is alert, oriented x 3, equal unlabored respirations, skin warm/dry/pink. Pain:. Respiratory: Airway is patent Respiratory effort is even, unlabored. 19:15 Reassessment: Patient appears in no apparent distress at this time. Patient and/or jb4 family updated on plan of care and expected duration. Pain level reassessed. Patient is alert, oriented x 3, equal unlabored respirations, skin warm/dry/pink. Unable to obtain IV acces. 20:30 Reassessment: CT scan pending IV access. Inside lab asked for help in obtaining blood jb4 specimen. 22:00 Reassessment: Patient appears in no apparent distress at this time. Patient and/or jb4 family updated on plan of care and expected duration. Pain level reassessed. Patient is alert, oriented x 3, equal unlabored respirations, skin warm/dry/pink. 23:08 Reassessment: Patient appears in no apparent distress at this time. Patient and/or jb4 family updated on plan of care and expected duration. Pain level reassessed. Patient is alert, oriented x 3, equal unlabored respirations, skin warm/dry/pink. 23:26 Reassessment: attempted to call report, instructed to wait for call back. banner Vital Signs: 16:29 BP 157 / 75; Pulse 113; Resp 24; Temp 97; Pulse Ox 95% on R/A; Weight 86.18 kg; Height ll1 5 ft. 2 in. ; Pain 8/10; 18:23 BP 147 / 90; Pulse 110; Resp 18; Pulse Ox 99% on R/A; db 18:45 BP 141 / 99; Pulse 114; Resp 18; Pulse Ox 100% on R/A; db 21:45 BP 142 / 104; Pulse 104; Resp 20; Pulse Ox 92% on R/A; jb4 22:30 BP 154 / 107; Pulse 103; Resp 20; Pulse Ox 88% on R/A; jb4 23:00 BP 146 / 75; Pulse 108; Resp 20; Pulse Ox 92% on 2 lpm NC; jb4 16:29 Body Mass Index 34.75 (86.18 kg, 157.48 cm) ll1 16:29 Pain Scale: Adult ll1 ED Course: 16:13 Patient arrived in ED. im 16:15 Nitish Thompson PA is PHCP. jmm 16:15 Shane Pastor MD is Attending Physician. jmm 16:29 Arm band placed on. ll1 16:31 Triage completed. ll1 17:36 XRAY Chest (1 view) In Process Unspecified. EDMS 18:34 Alice Quinn, RN is Primary Nurse. db 18:50 Missed attempt(s): 22 gauge in right hand. antecubital area. Bleeding controlled, band db aid applied, catheter tip intact. 19:09 Patient has correct armband on for positive identification. Bed in low position. Call db light in reach. Side rails up X 1. Provided Education on:. 19:09 CBC with Diff Sent. iw 20:55 Inserted saline lock: 20 gauge in right antecubital area, using aseptic technique. nj1 ,using aseptic technique. Ultrasound guided, catheter tip well visualized within vasculature during placement. Blood collected. 20:56 Radiology exam delayed due to IV insertion attempt and/or patient not having nj appropriate IV at this time. 20:56 Radiology exam delayed due to lab results not completed at this time. (BUN/Creatinine). nj 21:43 CT Chest For PE Angio In Process Unspecified. EDMS 22:22 Demian Santos is Hospitalizing Provider. jmm 23:10 No provider procedures requiring assistance completed. Patient admitted, IV remains in jb4 place. Administered Medications: 19:39 Drug: Levalbuterol Inhalation 1.25 mg Route: Inhalation; jb4 19:43 Drug: MethylPrednisoLONE IVP 125 mg Route: IVP; Site: left upper arm; jb4 Medication: 05/28 00:17 VIS not applicable for this client. ha1 Outcome: 05/27 22:22 Decision to Hospitalize by Provider. jmm 05/28 00:14 Admitted to [facility] Condition: stable 00:17 Patient left the ED. [facility] Signatures: Dispatcher [employer] EDMS Nitish Thompson PA PA Kristin Moya RN RN iw Bryson, James RN RN Mau Franklin Lynsay, RN RN ll1 Evangelina Stephens RN RN [facility] Alice Quinn RN RN db Jaco, Norma, RN RN [facility] Mago Yates Corrections: (The following items were deleted from the chart) 05/27 19:09 16:30 Neuro: ll1 ll1 21:05 20:55 Inserted saline lock: 20 gauge in right antecubital area, using aseptic nj1 technique. ,using aseptic technique. Ultrasound guided, catheter tip well visualized within vasculature during placement. nj1
[2023-05-27] MEDS ORDERED: ONDANSETRON 4 MG/2 ML VIAL IV PRN (22:48)
[2023-05-27] MEDS ORDERED: ALBUTEROL 2.5 MG/3 ML NEB SOL NEB PRN (22:48)
[2023-05-27] MEDS ORDERED: ALPRAZOLAM 0.25 MG TABLET PO PRN (22:48)
[2023-05-27] MEDS ORDERED: ACETAMINOPHEN 500 MG TAB PO PRN (22:48)
[2023-05-27] MEDS ORDERED: D50W 25 GM/50 ML SYRINGE IV PRN (22:56)
[2023-05-27] MEDS ORDERED: GLUCAGON 1 MG/VIAL IM PRN (22:56)
[2023-05-27] MEDS ORDERED: D10W 125 ML IV PRN (23:05)
--- NOTE | 2023-05-27 23:15 | P.HP ---
Certification for Inpatient Patient admitted to: Inpatient With expected LOS: <2 Midnights Patient will require the following post-hospital care: None Practitioner: I am a practitioner with admitting privileges, knowledge of patient current condition, hospital course, and medical plan of care. Services: Services provided to patient in accordance with Admission requirements found in Title 42 Section 412.3 of the Code of Federal Regulations Patient History Date of Service: 05/28/23 Reason for admission: Shortness of breath History of Present Illness: 57-year-old female with a past medical history of hypertension, COPD, DM, Anxiety, presents to the emergency room with shortness of breath. She reports wheezing, using nebulizers at 4-5 home with no relief. Shortness of breath worse today. She reports shortness of breath is worse with exertion, worse while lying flat, she reports shortness of breath at rest. She reports history of COPD, occasional tobacco use, she denies use of home O2, she denies fever, no reported productive cough, chest pain, nausea vomiting diarrhea, dysuria, edema, dizziness. ED course Tachypnea respirations 24, tachycardic heart rate was 113 on arrival to the ER, 95% on room air, Laboratory evaluation WBCs leukocytosis 11.40, mild anemia 11.7, sodium, potassium, CO2 is normal on CMP troponin is normal at 47.8, COVID-negative Chest x-ray IMPRESSION: Increased prominence of the pulmonaryinterstitium suggesting mild edema.: Left pleural effusion suspected. Difficult to exclude a small right effusion. Cardiac: Cardiomegaly. CTA IMPRESSION: Limited evaluation for pulmonary emboli given motion artifact and suboptimal opacification of the segmental and subsegmental pulmonary arteries. This could be secondary to poor cardiac output including right heart failure. Interstitial pulmonary edema is present, however. Stable right lower lobe pulmonary nodule since 10/08/2022 which would indicate a benign etiology. Allergies morphine Allergy (Verified 10/08/22 23:52) Anaphylaxis Home medications list reviewed: Yes Home Medications: ALPRAZolam [Xanax*] 1 mg PO BEDTIME PRN 10/09/22 Albuterol Sulfate [Albuterol Sulfate Hfa] 2 puff IN QID PRN 10/09/22 Amitriptyline HCl 75 mg PO BEDTIME 10/09/22 Carisoprodol [Soma] 350 mg PO TID 10/09/22 Fluticasone Propion/Salmeterol [Wixela 250-50 Inhub] 2 puff IN TID PRN 10/09/22 Hydrocodone Bit/Acetaminophen [Hydrocodon-Acetaminophn 10-325] 10 - 325 mg PO PRN PRN 10/09/22 Losartan Potassium [Cozaar*] 50 mg PO BEDTIME 10/09/22 Metformin HCl 1,000 mg PO BID 10/09/22 Rivaroxaban [Xarelto] 20 mg PO BID 10/09/22 Simvastatin 40 mg PO BEDTIME 10/09/22 Furosemide 40 mg PO DAILY 30 Days #30 tab 10/13/22 predniSONE [Prednisone*] 20 mg PO BID 4 Days #8 tab 10/13/22 - Past Medical/Surgical History Diabetic: Yes -: Type 2 Diabetes, Non-Insulin Dependent -: Factor V Leiden -: CVAs -: Hypertension -: Tubal Ligation -: Tonsillectomy -: tubal ligation Psychosocial/ Personal History: Patient lives at home alone. - Family History Mother -: Cancer Notes: unknown kind Father -: Cancer Notes: unknown kind paternal grandmother -: Diabetes - Social History Alcohol use: No CD- Drugs: No Caffeine use: Yes Review of Systems 10-point ROS is otherwise unremarkable Physical Examination - Physical Exam General: Alert, In no apparent distress, Oriented x3 HEENT: Atraumatic, Normocephalic, PERRLA Neck: Supple, 2+ carotid pulse no bruit, JVD not distended Respiratory: Crackles/rales, Expiratory wheezes, Inspiratory wheezes Cardiovascular: No edema, Regular rate/rhythm, Edema Capillary refill: <2 Seconds Gastrointestinal: Normal bowel sounds, No rebound Musculoskeletal: No clubbing, No swelling Integumentary: No rashes, No breakdown Neurological: Normal speech, Normal strength at 5/5 x4 extr, Cranial nerves 3-12 intact - Studies Laboratory Data (last 24 hrs) 05/27/23 20:22: Sodium 140, Potassium 3.7, BUN 11, Creatinine 0.80, Glucose 100 05/27/23 19:08: WBC 11.40 H, Hgb 11.7 L, Hct 36.4, Plt Count 273 Assessment and Plan - Plan Assessment plan COPD exacerbation Interstitial pulmonary edema Leukocytosis History of COPD Essential hypertension Diabetes type 2 Anxiety Tobacco use DVT prophylaxis Assessment plan COPD exacerbation-azithromycin, nebs, steroids, Interstitial pulmonary edema-BNP, lasix ordered in am, daily wt, History of COPD-O2 2 L keep sats greater than 90% Essential hypertension-resume appropriate home medications Diabetes type 2-Accu-Chek ACHS, sliding scale insulin Anxiety-resume as needed medications Tobacco use-educate on tobacco cessation Full code DVT prophylaxis-Lovenox Diet cardiac Plan to discharge in: 48 Hours - Advance Directives Does patient have a Living Will: No Does patient have a Durable POA for Healthcare: No - Code Status/Comfort Care Code Status: Full Code Physician Review: Patient Assessed, Agree with Above Assessment and Plan Critical Care: No Time Spent Managing Pts Care (In Minutes): 55
[2023-05-28] MEDS: METHYLPREDNISOLONE 125 MG INJ IV SCH ×4 (00:41→17:08)
[2023-05-28 01:10] VITALS: BMI 37.3
[2023-05-28] MEDS: IPRATROPIUM BROM 0.5MG/2.5ML NEB SCH ×4 (01:30→20:00)
[2023-05-28 07:39] LABS: Absolute Lymphocytes (CBC) 0.7 K/uL (0.7-4.9); Hematocrit 35.7 % (36.0-45.0); Lymphocytes % 8.9 % (15.3-44.8); MCV 78.3 fL (80-100); MPV 8.5 fL (7.6-11.3); RBC Red Blood Cell Count 4.56 M/uL (3.86-4.86)
[2023-05-28 07:42] LABS: Magnesium 2.2 mg/dL (1.6-2.4); Potassium 4.4 mEq/L (3.5-5.1)
[2023-05-28] MEDS: INSULIN -REGULAR HUMAN 50 UNIT/0.5 ML ML SQ SCH ×3 (08:59→17:07)
[2023-05-28] MEDS ORDERED: AZITHROMYCIN IV 500 MG in NA CHLORIDE 0.9% 250 ML IVPB SCH (09:00)
[2023-05-28] MEDS ORDERED: ENOXAPARIN 40 MG/0.4 ML SQ SCH (09:00)
[2023-05-28] MEDS: FUROSEMIDE 40 MG/4 ML VIAL IV SCH ×2 (09:01→17:08)
[2023-05-28 11:01] VITALS: O2SAT 93
--- NOTE | 2023-05-28 15:45 | EKG ---
Test Date: 2023-05-27 Test Time: 18:53:58 Order Puller: EFFIE MEASUREMENT RESULTS: Intervals: Rate: 114 TX: 140 QRSD: 90 QT: 372 QTc: 512 [place]: P: 73 TX: 140 QRS: 46 T: 63 INTERPRETIVE STATEMENTS: Sinus tachycardia Otherwise normal ECG Compared to ECG 10/08/2022 15:41:10 No significant changes Electronically Signed On 05-28-23 15:43:28 CDT by Freddy Venegas
--- NOTE | 2023-05-28 19:37 | P.DS ---
Admission Date: 05/27/23 Discharge Date: 05/28/23 Disposition: ROUTINE DISCHARGE Discharge Condition: FAIR Reason for Admission: Shortness of breath - Problems (1) Acute on chronic systolic heart failure Current Visit: Yes Status: Acute (2) COPD with acute exacerbation Current Visit: No Status: Acute (3) Type 2 diabetes mellitus Current Visit: No Status: Acute Qualifiers: Diabetes mellitus snf insulin use: without terminal clerk use Diabetes mellitus complication status: with hyperglycemia Qualified Code(s): E11.65 - Type 2 diabetes mellitus with hyperglycemia (4) Hypertension Current Visit: No Status: Chronic Qualifiers: Hypertension type: primary hypertension Qualified Code(s): I10 - Essential (primary) hypertension (5) Chronic anticoagulation Current Visit: No Status: Chronic (6) Factor V Leiden Current Visit: No Status: Chronic Brief History of Present Illness: 57-year-old female with a past medical history of hypertension, COPD, DM, Anxiety, presents to the emergency room with shortness of breath. She reports wheezing, using nebulizers at 4-5 home with no relief. Shortness of breath became worse and aggravated with exertion and lying flat. She reports history of COPD, occasional tobacco use, she denies use of home O2, she denies fever, no reported productive cough, chest pain, nausea vomiting diarrhea, dysuria, edema, dizziness. ED course Tachypnea respirations 24, tachycardic heart rate was 113 on arrival to the ER, 95% on room air, Laboratory evaluation WBCs leukocytosis 11.40, mild anemia 11.7, sodium, potassium, CO2 is normal on CMP troponin is normal at 47.8, COVID-negative Chest x-ray IMPRESSION: Increased prominence of the pulmonary interstitium suggesting mild edema.: Left pleural effusion suspected. Difficult to exclude a small right effusion. Cardiac: Cardiomegaly. CTA IMPRESSION: Limited evaluation for pulmonary emboli given motion artifact and suboptimal opacification of the segmental and subsegmental pulmonary arteries. This could be secondary to poor cardiac output including right heart failure. Interstitial pulmonary edema is present, however. Stable right lower lobe pulmonary nodule since 10/08/2022 which would indicate a benign etiology. Patient hospitalized for further management. Hospital Course: Patient was treated with IV steroids, scheduled bronchodilators for COPD exacerbation and IV Lasix for acute diastolic heart failure. Patient's respiratory symptoms improved with treatment. She was able to ambulate in the hallway without hypoxia. She reports shortness of breath with exertion at baseline. She has minimal exertional capacity and at baseline ambulate only less than 10 feet. Her most recent echocardiogram showed EF of 30 to 35%. Vitals are stable. She feels her shortness of breath has improved. Patient did not qualify for home oxygen. She is discharged with oral prednisone and oral Lasix maintenance. Vital Signs/Physical Exam: Temp Pulse Resp BP Pulse Ox 97 F 110 H 18 131/66 96 05/28/23 16:00 05/28/23 16:00 05/28/23 16:00 05/28/23 16:00 05/28/23 16:00 General: Alert, In no apparent distress, Oriented x3 HEENT: Mucous membr. moist/pink Neck: Supple, JVD not distended Respiratory: Diminished, Other (No crackles) Cardiovascular: No edema, Regular rate/rhythm, Normal S1 S2 Gastrointestinal: Soft and benign, Non-distended Musculoskeletal: No swelling Neurological: Normal strength at 5/5 x4 extr Laboratory Data at Discharge: WBC 7.70 thou/uL (4.3-10.9) 05/28/23 06:19 Hgb 11.3 g/dL (12.0-15.0) L 05/28/23 06:19 Hct 35.7 % (36.0-45.0) L 05/28/23 06:19 Plt Count 285 thou/uL (152-406) 05/28/23 06:19 Sodium 139 mEq/L (136-145) 05/28/23 06:19 Potassium 4.4 mEq/L (3.5-5.1) D 05/28/23 06:19 BUN 15 mg/dL (7-18) 05/28/23 06:19 Creatinine 1.00 mg/dL (0.55-1.02) 05/28/23 06:19 Glucose 310 mg/dL (74-106) H 05/28/23 06:19 Magnesium 2.2 mg/dL (1.6-2.4) 05/28/23 06:19 Home Medications: Albuterol Sulfate [Albuterol Sulfate Hfa] 2 puff IN QID PRN 10/09/22 Amitriptyline HCl 75 mg PO BEDTIME 10/09/22 Carisoprodol [Soma] 350 mg PO TID 10/09/22 Fluticasone Propion/Salmeterol [Wixela 250-50 Inhub] 2 puff IN BID 10/09/22 Hydrocodone Bit/Acetaminophen [Hydrocodon-Acetaminophn 10-325] 10 - 325 mg PO Q8HP PRN 10/09/22 Losartan Potassium [Cozaar*] 50 mg PO BEDTIME 10/09/22 Metformin HCl 1,000 mg PO BID 10/09/22 Rivaroxaban [Xarelto] 20 mg PO DAILY 10/09/22 Simvastatin 40 mg PO BEDTIME 10/09/22 Glimepiride 4 mg PO DAILY 05/28/23 Nicotine [Nicotine Patch] 1 each TD DAILY 05/28/23 Quetiapine [Seroquel] 100 mg PO BEDTIME 05/28/23 hydrOXYzine HCL [Atarax] 25 mg PO Q8HP PRN 05/28/23 Diet: ADA Activity: Fall precautions Followup: Faraz Mota MD [ACTIVE - CAN ADMIT] - 1-2 Weeks (For evaluation of pulmonary nodule) Rich Dunbar MD [Primary Care Provider] - 1-2 Weeks Time spent managing pt's care (in minutes): 28
[2023-05-28 20:10] VITALS: BP 161/82; TEMP 97.1
[2023-05-28] MEDS ORDERED: LOSARTAN POTASSIUM 50 MG TABLET PO SCH (21:00)
== END 2023-05-28 20:30 | disposition home or self-care (01) | DRG 291 ==
LOC: ER 16:10 → ERHOLD 22:47 → 4TH 23:45
PROVIDERS: ADMIT Internal Medicine; ATTEND Internal Medicine
DX: I11.0 Hypertensive heart disease with heart failure (principal); I50.23 Acute on chronic systolic (congestive) heart failure; J44.1 Chronic obstructive pulmonary disease with (acute) exacerbation; E11.65 Type 2 diabetes mellitus with hyperglycemia; D64.9 Anemia, unspecified; F41.9 Anxiety disorder, unspecified; D72.829 Elevated white blood cell count, unspecified; F17.210 Nicotine dependence, cigarettes, uncomplicated; R09.02 Hypoxemia; Z60.2 Problems related to living alone; Z88.5 Allergy status to narcotic agent; Z79.01 Long term (current) use of anticoagulants; Z79.84 Long term (current) use of oral hypoglycemic drugs; Z79.52 Long term (current) use of systemic steroids; Z98.51 Tubal ligation status; Z79.899 Other long term (current) drug therapy; Z20.822 Contact with and (suspected) exposure to COVID-19
CPT/HCPCS: 36415; 71045; 71275; 80048; 82947; 83735; 83880; 84484; 85025; 87635; 93005; 94760; 96374; 99285; J1650; J1815; J1940; J2930; J7050; J7614; J7644; Q9967

== ENCOUNTER 2024-03-24 00:23 | Inpatient (IN) | payer OTHER ==
[~2024-03-24 00:23] MED LIST: METHYLPREDNISOLONE 125 MG INJ ONE
[2024-03-24] MEDS ORDERED: MAGNESIUM SULFATE 1 gm IVPB 1 GM/100 ML BAG IV ONE ×2 (00:24→00:25)
[2024-03-24 00:41] LABS: Arterial Blood Carboxyhemoglob 2.6 % (0-1.5); Blood Gas Oxyhemoglobin 90.1 % (94-97); Blood Gas THB 12.5 g/dl (12-18)
[2024-03-24] MEDS ORDERED: ALBUTEROL 2.5 MG/3 ML NEB SOL ONE (00:46)
[2024-03-24] MEDS ORDERED: IPRATROPIUM BROM 0.5MG/2.5ML ONE (00:47)
[2024-03-24] MEDS ORDERED: LEVALBUTEROL 1.25 MG/3 ML NEB ONE (00:48)
[2024-03-24 00:58] LABS: Absolute Basophils 0.1 K/uL (0-0.5); Absolute Eosinophils 0.2 K/uL (0-0.5); Absolute Lymphocytes (CBC) 2.6 K/uL (0.7-4.9); Absolute Monocytes 0.8 K/uL (0.1-1.3); Absolute Neutrophil 5.3 K/uL (1.8-8.0); Eosinophils % 2.8 % (0-4.4); Hematocrit 37.6 % (36.0-45.0); Lymphocytes % 28.6 % (15.3-44.8); MCH 26.5 pg (27.0-35.0); MCV 82.8 fL (80-100); MPV 8.5 fL (7.6-11.3); Monocytes % 8.6 % (3.3-12.3); Nucleated Red Blood Cells % 0.1 % (0-0); Platelets 315 thou/uL (152-406); RBC Red Blood Cell Count 4.54 M/uL (3.86-4.86); Red Cell Distribution Width 16.1 % (12.1-15.2)
[2024-03-24 01:03] LABS: PT Prothrombin Time 11.5 SECONDS (9.5-12.5); PTT, Activated Partial Thromb 27.8 SECONDS (24.3-36.9); Protime INR 1.05
[2024-03-24 01:25] LABS: Albumin 3.2 g/dL (3.4-5.0); Albumin/Globulin Ratio 0.7 (1.1-1.8); Anion Gap 12.2 mEq/L (5.0-15.0); Bilirubin Direct 0.2 mg/dL (0-0.2); Bilirubin Indirect, Calculated 0.2 mg/dL (0.2-0.8); Bilirubin Total 0.4 mg/dL (0.2-1.0); Globulin 4.3 g/dL (2.3-3.5); Magnesium 1.9 mg/dL (1.6-2.4); Potassium 4.2 mEq/L (3.5-5.1); Protein, Total 7.5 g/dL (6.4-8.2); Troponin High Sensitivity 47.7 pg/mL (<58.9)
[2024-03-24] MEDS ORDERED: ONDANSETRON 4 MG/2 ML VIAL ONE (01:59)
--- NOTE | 2024-03-24 02:37 | EDPHYS ---
Physician Documentation [facility] Name: Zoraida Mcleod Age: 58 yrs Sex: Female : 1965 Arrival Date: 03/24/2024 Time: 00:23 Bed 8 Private MD: ED Physician Luis Antonio Mcgowan HPI: 03/24 00:24 This 58 yrs old Female presents to ER via Unassigned with complaints of sp4 Shortness Of Breath. 02:31 58-year-old female past medical history of COPD presents with acute onset of shortness sp4 of breath with EMS. Last admission 05/27/2023 for acute on chronic systolic heart failure, COPD, type 2 diabetes, hypertension, chronic anticoagulation, factor V Leiden mutation. Also history of anxiety diabetes. Patient's medications include albuterol, amitriptyline, Soma, fluticasone, salmeterol, hydrocodone, metformin, Xarelto, simvastatin, glimepiride, nicotine, Seroquel, hydroxyzine. . Historical: - Allergies: 00:37 Morphine; jb4 - PMHx: 00:37 COPD; Hypertensive disorder; jb4 - PSHx: 00:37 Tonsillectomy; hernia repair; Tubal ligation (hernia repair); jb4 - Immunization history:: Adult Immunizations up to date. - Infectious Disease History:: Denies. - Social history:: Smoking status: Patient reports the use of cigarette tobacco products, smokes one pack cigarettes per day. - Family history:: not pertinent. ROS: 02:31 Constitutional: Negative for fever, chills, and weight loss, positive shortness of sp4 breath, positive cough positive wheezing. 02:31 All other systems are negative, Exam: 02:31 Constitutional: This is a well developed, well nourished patient who is awake, alert, sp4 morbidly obese female acutely dyspneic Head/Face: Normocephalic, atraumatic. Eyes: Pupils equal round and reactive to light, extra-ocular motions intact. Lids and lashes normal. Conjunctiva and sclera are not injected. Cornea within normal limits. Periorbital areas with no swelling, redness, or edema. ENT: Nares patent. No nasal discharge, no septal abnormalities noted. Tympanic membranes are normal and external auditory canals are clear. Oropharynx with no redness, swelling, or masses, exudates, or evidence of obstruction, uvula midline. Mucous membranes moist. Neck: Trachea midline, no thyromegaly or masses palpated, and no cervical lymphadenopathy. Supple, full range of motion without nuchal rigidity, or vertebral point tenderness. Chest/axilla: Normal chest wall appearance and motion. Nontender with no deformity. No lesions are appreciated. Cardiovascular: Regular rate and rhythm with a normal S1 and S2. No gallops, murmurs, or rubs. Normal PMI, no JVD. No pulse deficits. Respiratory: Lungs have equal breath sounds bilaterally, positive diffuse expiratory wheezing all quadrants. Abdomen/GI: Soft, with normal bowel sounds. No distension or tympany. No guarding or rebound. No evidence of tenderness throughout. Back: No spinal tenderness. No costovertebral tenderness. Skin: Warm, dry with normal turgor. Normal color with no rashes, no lesions, and no evidence of cellulitis. MS/ Extremity: Pulses equal, no cyanosis. Neurovascular intact. Full, normal range of motion. Neuro: Awake and alert, GCS 15, oriented to person, place, time, and situation. Cranial nerves II-XII grossly intact. Motor strength 5/5 in all extremities. Sensory grossly intact. Psych: Awake, alert, with orientation to person, place and time. Behavior, mood, and affect are within normal limits 02:31 ECG was reviewed by the Attending Physician. EKG time 0 135, sinus tachycardia at rate of 108. Otherwise normal Vital Signs: 00:24 BP 158 / 91; Pulse 115; Resp 28; Temp 98.5(O); Pulse Ox 97% on 4 lpm NC; km8 01:37 BP 143 / 86; Pulse 108; Pulse Ox 97% on BiPAP; tm6 02:00 BP 151 / 73; Pulse 108; Resp 21; Pulse Ox 97% on BiPAP; km8 02:30 BP 133 / 84; Pulse 106; Resp 20; Pulse Ox 96% on BiPAP; km8 04:00 BP 133 / 87; Pulse 103; Resp 26; Temp 97.1(TE); Pulse Ox 95% on R/A; km8 Holland Coma Score: 00:43 Eye Response: spontaneous(4). Motor Response: obeys commands(6). Verbal Response: km8 oriented(5). Total: 15. 02:31 Eye Response: spontaneous(4). Motor Response: obeys commands(6). Verbal Response: sp4 oriented(5). Total: 15. MDM: 00:25 Patient medically screened. sp4 02:31 Differential diagnosis: Anxiety Reaction asthma, Bronchitis CHF exacerbation, Chronic sp4 Obstructive Pulmonary Disease Myocardial Infarction. Data reviewed: vital signs, nurses notes, EMS record, lab test result(s), EKG, radiologic studies, plain films. Consideration of Admission/Observation Patient was admitted/placed on observation. Escalation of care including admission/observation considered. Management of patient was discussed with the following: Hospitalist: Pato BOWER . ED course: EXAM DESCRIPTION: Chest Single View CLINICAL HISTORY: CHEST PAIN COMPARISON: None FINDINGS: Cardiac silhouette is within normal limits. EKG leads project over the chest. There is no focal parenchymal or pleural disease. There is no acute osseous process visualized. IMPRESSION: No evidence of acute cardiopulmonary disease. Electronically signed by: Vasquez Alfred MD 03/24/2024 12:55 AM CDT. ED course: Patient has improved to some extent but warrants admission for further management . Patient is currently on BiPAP. 03/24 00:25 Order name: BMP; Complete Time: 02:30 03/24 00:25 Order name: Blood Culture Adult (2) sp4 03/24 00:25 Order name: CBC with Diff; Complete Time: 02:30 03/24 00:25 Order name: CPK; Complete Time: 02:30 03/24 00:25 Order name: Hepatic Function; Complete Time: 02:30 03/24 00:25 Order name: Lipase; Complete Time: 02:30 03/24 00:25 Order name: Magnesium; Complete Time: 02:30 03/24 00:25 Order name: NT PRO-BNP; Complete Time: 02:30 03/24 00:25 Order name: PT-INR; Complete Time: 02:30 4 03/24 00:25 Order name: Ptt, Activated; Complete Time: 02:30 4 03/24 00:25 Order name: Troponin HS; Complete Time: 02:30 03/24 00:25 Order name: ABG; Complete Time: 02:30 03/24 02:42 Order name: D-Dimer; Complete Time: 04:24 EDMS 03/24 00:25 Order name: XRAY CXR (1 view) sp4 03/24 02:43 Order name: Echo with Doppler EDMS 03/24 00:25 Order name: Cardiac monitoring; Complete Time: 00:25 sp4 03/24 00:25 Order name: EKG - Nurse/Tech; Complete Time: 01:36 sp4 03/24 00:25 Order name: IV Saline Lock; Complete Time: 00:25 sp4 03/24 00:25 Order name: Labs collected and sent; Complete Time: 00:56 sp4 03/24 00:25 Order name: O2 Per Protocol; Complete Time: 00:25 sp4 03/24 00:25 Order name: O2 Sat Monitoring; Complete Time: 00:25 sp4 EC:31 Rate is 108 beats/min. Rhythm is regular, Sinus tachycardia. QRS Ono is Normal. VT sp4 interval is normal. QRS interval is normal. QT interval is normal. No Q waves. T waves are Normal. No ST changes noted. Clinical impression: Normal ECG. Interpreted by me. Reviewed by me. Administered Medications: 00:30 Drug: MethylPrednisoLONE IVP 125 mg IVP once Route: IVP; Site: Other; 02:39 Follow up: Response: No adverse reaction [facility] 00:40 Drug: Magnesium Sulfate IVPB 2 grams IVPB once over 2 hrs {Note: left ankle.} Route: kl IVPB; Infused Over: 2 hrs; Site: Other; 02:40 Follow up: Response: No adverse reaction; IV Status: Completed infusion; IV Intake: km8 200ml 00:56 Not Given (Other Intervention Used): DuoNeb Nebulize (2.5 mg - 0.5 mg) 3 ml Nebulizer km8 once 00:57 Drug: Ipratropium Inhalation Aerosol 0.5 mg Inhalation once Route: Inhalation; km8 00:57 Drug: Levalbuterol Inhalation 1.25 mg Inhalation once Route: Inhalation; km8 Disposition Summary: 03/24/24 02:37 Hospitalization Ordered Notes: Hospitalization Status: Inpatient Admission sp4 Provider: Prince neal Whyte Condition: Stable sp4 Problem: new sp4 Symptoms: have improved sp4 Bed/Room Type: Standard sp4 Location: Telemetry/MedSurg (Inpatient)(03/24/24 04:45) aftab Room Assignment: 409(03/24/24 04:45) Diagnosis - COPD/ Chronic obstructive pulmonary disease with (acute) exacerbation sp4 Forms: - Medication Reconciliation Form sp4 - SBAR form sp4 - Leadership Thank You Letter sp4 Signatures: Dispatcher [employer] EDAR Lindsey Zaragoza RN RN Carlos Salmon RN RN jb4 Riya Cerna Sergey, MD MD sp4 Therese Seasl RN RN km8 Corrections: (The following items were deleted from the chart) 00:26 00:26 BASIC METABOLIC PANEL+C.LAB.BRZ ordered. EDAR EDAR 00:26 00:26 BLOOD CULTURE*+BA.LAB.BRZ ordered. EDAR EDAR 00:26 00:26 CBC+H.LAB.BRZ ordered. EDAR EDAR 00:26 00:26 CREATINE PHOSPHOKINASE+C.LAB.BRZ ordered. EDAR EDAR 00:26 00:26 HEPATIC FUNCTION+C.LAB.BRZ ordered. EDAR EDAR 00:26 00:26 LIPASE+C.LAB.BRZ ordered. EDAR EDAR 00:26 00:26 MAGNESIUM+C.LAB.BRZ ordered. EDAR EDAR 00:26 00:26 PROBNP+C.LAB.BRZ ordered. EDAR EDAR 00:26 00:26 PROTIME (+INR)+COAG.LAB.BRZ ordered. EDAR EDAR 00:26 00:26 PTT, ACTIVATED+COAG.LAB.BRZ ordered. EDAR EDAR 00:26 00:26 Troponin High Sensitivity+C.LAB.BRZ ordered. EDAR EDAR 00:26 00:26 Arterial Blood Gas+RC.LAB.BRZ ordered. EDAR EDAR 01:06 00:43 Central Line Kit ordered. sp4 tm6 02:44 02:37 Telemetry/MedSurg (Inpatient) sp4 wm 02:44 02:37 sp4 wm 02:45 02:44 [facility] ER HOLD wm wm 02:45 02:44 wm wm 04:45 02:45 [facility] ER HOLD wm kl 04:45 02:45 ERHOLD- wm kl
--- NOTE | 2024-03-24 02:37 | ER ---
Nurse's Notes [facility] Name: Zoraida Mcleod Age: 58 yrs Sex: Female : 1965 Arrival Date: 03/24/2024 Time: 00:23 Bed 8 Private MD: Diagnosis: COPD/ Chronic obstructive pulmonary disease with (acute) exacerbation Presentation: 03/24 00:24 Chief complaint: EMS states: Pt's family called for EMS for difficulty breathing. Pt jb4 was sating 77% on RA. Has a history of COPD and asthma. was given 2 of albuterol and 1 of Atrovent. Coronavirus screen: At this time, the client does not indicate any symptoms associated with coronavirus-19. Ebola Screen: No symptoms or risks identified at this time. Initial Sepsis Screen: Does the patient meet any 2 criteria? No. Patient's initial sepsis screen is negative. Does the patient have a suspected source of infection? No. Patient's initial sepsis screen is negative. Risk Assessment: Do you want to hurt yourself or someone else? Patient reports no desire to harm self or others. Onset of symptoms was March 24, 2024. Transition of care: patient was not received from another setting of care. 00:24 Method Of Arrival: EMS: [facility] jb4 00:24 Acuity: VILLA 2 jb4 Historical: - Allergies: 00:37 Morphine; jb4 - PMHx: 00:37 COPD; Hypertensive disorder; jb4 - PSHx: 00:37 Tonsillectomy; hernia repair; Tubal ligation (hernia repair); jb4 - Immunization history:: Adult Immunizations up to date. - Infectious Disease History:: Denies. - Social history:: Smoking status: Patient reports the use of cigarette tobacco products, smokes one pack cigarettes per day. - Family history:: not pertinent. Screenin:[facility] Fall Risk Assessment (Adult) History of falling in the last 3 months, km8 including since admission No falls in past 3 months (0 pts) Confusion or Disorientation No (0 pts) Intoxicated or Sedated No (0 pts) Impaired Gait No (0 pts) Mobility Assist Device Used No (0 pt) Altered Elimination No (0 pt) Score/Fall Risk Level 0 - 2 = Low Risk Oriented to surroundings, Maintained a safe environment, Educated pt \T\ family on fall prevention, incl call for assistance when getting out of bed, Assessed \T\ reinforced patient's understanding of fall precautions. Abuse screen: Denies threats or abuse. Denies injuries from another. Nutritional screening: No deficits noted. Tuberculosis screening: No symptoms or risk factors identified. Assessment: 00:43 Reassessment: Patient and/or family updated on plan of care and expected duration. Pain km8 level reassessed. Patient is alert, oriented x 3, equal unlabored respirations, skin warm/dry/pink. General: Appears in no apparent distress. comfortable, Behavior is cooperative, appropriate for age, anxious. Pain: Denies pain. Neuro: Level of Consciousness is awake, alert, obeys commands, Oriented to person, place, time, situation. Cardiovascular: Reports shortness of breath, Denies chest pain, Patient's skin is warm and dry. Rhythm is sinus tachycardia. Respiratory: Reports shortness of breath Airway is patent Respiratory effort is even, labored, Respiratory pattern is regular, tachypnea Patient placed on BiPAP: Inspiratory Pressure: 16 Expiratory (EPAP) Pressure: 7 FiO2%: 28 Respiratory Rate: 18 Breath sounds with wheezes bilaterally. the patient has moderate shortness of breath. GI: No signs and/or symptoms were reported involving the gastrointestinal system. : No signs and/or symptoms were reported regarding the genitourinary system. EENT: No signs and/or symptoms were reported regarding the EENT system. Derm: No signs and/or symptoms reported regarding the dermatologic system. Skin is intact, is healthy with good turgor, Skin is dry, Skin is pink, warm \T\ dry. normal, Skin temperature is warm. Musculoskeletal: No signs and/or symptoms reported regarding the musculoskeletal system. Range of motion: intact in all extremities. 01:37 Reassessment: Patient and/or family updated on plan of care and expected duration. Pain tm6 level reassessed. Patient is alert, oriented x 3, equal unlabored respirations, skin warm/dry/pink. 02:38 Reassessment: Patient appears in no apparent distress at this time. Patient and/or km8 family updated on plan of care and expected duration. Pain level reassessed. Patient is alert, oriented x 3, equal unlabored respirations, skin warm/dry/pink. General: Appears in no apparent distress. comfortable, Behavior is calm, cooperative, appropriate for age. Respiratory: Airway is patent Respiratory effort is even, unlabored, Respiratory pattern is regular, symmetrical. 03:30 Reassessment: Patient appears in no apparent distress at this time. No changes from km8 previously documented assessment. Patient and/or family updated on plan of care and expected duration. Pain level reassessed. Patient is alert, oriented x 3, equal unlabored respirations, skin warm/dry/pink. 04:17 Reassessment: Patient appears in no apparent distress at this time. No changes from km8 previously documented assessment. Patient and/or family updated on plan of care and expected duration. Pain level reassessed. Patient is alert, oriented x 3, equal unlabored respirations, skin warm/dry/pink. Vital Signs: 00:24 BP 158 / 91; Pulse 115; Resp 28; Temp 98.5(O); Pulse Ox 97% on 4 lpm NC; km8 01:37 BP 143 / 86; Pulse 108; Pulse Ox 97% on BiPAP; tm6 02:00 BP 151 / 73; Pulse 108; Resp 21; Pulse Ox 97% on BiPAP; km8 02:30 BP 133 / 84; Pulse 106; Resp 20; Pulse Ox 96% on BiPAP; km8 04:00 BP 133 / 87; Pulse 103; Resp 26; Temp 97.1(TE); Pulse Ox 95% on R/A; km8 [place] Coma Score: 00:43 Eye Response: spontaneous(4). Motor Response: obeys commands(6). Verbal Response: km8 oriented(5). Total: 15. 02:31 Eye Response: spontaneous(4). Motor Response: obeys commands(6). Verbal Response: sp4 oriented(5). Total: 15. ED Course: 00:24 Patient arrived in ED. wm 00:24 Therese Seals RN is Primary Nurse. km8 00:24 Luis Antonio Mcgowan MD is Attending Physician. sp4 00:26 Maintain EMS IV. Dressing intact. Good blood return noted. Site clean \T\ dry. Gauge \T\ km 8 site: 20 gauge left ankle. 00:26 Patient has correct armband on for positive identification. Bed in low position. Call km8 light in reach. Side rails up X2. Client placed on continuous cardiac and pulse oximetry monitoring. NIBP monitoring applied. patient monitor on. Pulse ox on. NIBP on. Warm blanket given. 00:37 Triage completed. 4 00:37 Arm band placed on right wrist. 00:43 BMP Sent. 00:43 CBC with Diff Sent. 00:43 CPK Sent. 00:43 Hepatic Function Sent. 00:43 Lipase Sent. :43 PT-INR Sent. :43 NT PRO-BNP Sent. :43 Magnesium Sent. : Ptt, Activated Sent. : Troponin HS Sent. :43 O2 via BiPAP Response to oxygen therapy: symptoms improved. 00:47 XRAY CXR (1 view) In Process Unspecified. EDMS 01:00 Inserted saline lock: 20 gauge in right forearm, using aseptic technique. km8 01:20 Inserted saline lock: 20 gauge in left forearm, using aseptic technique. km8 01:36 EKG done, by ED staff, reviewed by Luis Antonio Mcgowan MD. tm6 02:37 Prince Whyte MD is Hospitalizing Provider. sp4 03:07 D-Dimer Sent. 04:00 Provided Education on: admission process. 04:56 Patient admitted, IV remains in place. 04:56 No provider procedures requiring assistance completed. 8 Administered Medications: 00:30 Drug: MethylPrednisoLONE IVP 125 mg IVP once Route: IVP; Site: Other; 02:39 Follow up: Response: No adverse reaction 00:40 Drug: Magnesium Sulfate IVPB 2 grams IVPB once over 2 hrs {Note: left ankle.} Route: kl IVPB; Infused Over: 2 hrs; Site: Other; 02:40 Follow up: Response: No adverse reaction; IV Status: Completed infusion; IV Intake: km8 200ml 00:56 Not Given (Other Intervention Used): DuoNeb Nebulize (2.5 mg - 0.5 mg) 3 ml Nebulizer once 00:57 Drug: Ipratropium Inhalation Aerosol 0.5 mg Inhalation once Route: Inhalation; 00:57 Drug: Levalbuterol Inhalation 1.25 mg Inhalation once Route: Inhalation; Medication: 00:43 VIS not applicable for this client. Intake: 02:40 IV: 200ml; Total: 200ml. km8 Outcome: 02:37 Decision to Hospitalize by Provider. sp4 04:56 Admitted to ER Hold. Please see [facility] for further documentation. km8 04:56 Condition: stable 04:56 Instructed on the need for admit, Demonstrated understanding of instructions, 05:35 Patient left the ED. tm6 Signatures: Dispatcher [employer] EDMS Lindsey Zaragoza, Carlos Dunham RN, RN RN jb4 Riya Cerna Sergey, MD MD sp4 Therese Seals RN RN km8 Shefali Colon RN RN tm6 Corrections: (The following items were deleted from the chart) 00:28 00:20 BP 158 / 91; Pulse 115bpm; Resp 28bpm; Pulse Ox 97% 4 lpm Nasal Cannula; Temp km8 98.5F Oral; km8 01:01 00:43 Respiratory: Reports shortness of breath Airway is patent Respiratory effort is km8 even, labored, Respiratory pattern is regular, tachypnea Breath sounds with wheezes bilaterally. the patient has moderate shortness of breath km8
--- NOTE | 2024-03-24 02:59 | P.HP ---
Certification for Inpatient Patient admitted to: Inpatient With expected LOS: >2 Midnights Practitioner: I am a practitioner with admitting privileges, knowledge of patient current condition, hospital course, and medical plan of care. Services: Services provided to patient in accordance with Admission requirements found in Title 42 Section 412.3 of the Code of Federal Regulations Patient History Date of Service: 03/24/24 Reason for admission: shortness of breath History of Present Illness: Patient is a 58-year-old female. She has a history of COPD and type 2 diabetes mellitus. She presented to the ER with an acute onset of shortness of breath and dyspnea on exertion. Associated symptoms included chest pain. She has no cough. She arrived in the ER hemodynamically stable but in respiratory distress. Chest x-ray was unremarkable for acute infiltrates. Patient was started on BiPAP and given nebulizer. During my evaluation, patient was in minimal distress. She had a BiPAP mask on. Allergies morphine Allergy (Verified 10/08/22 23:52) Anaphylaxis Home Medications: Albuterol Sulfate [Albuterol Sulfate Hfa] 2 puff IN QID PRN 10/09/22 Amitriptyline HCl 75 mg PO BEDTIME 10/09/22 Carisoprodol [Soma] 350 mg PO TID 10/09/22 Fluticasone Propion/Salmeterol [Wixela 250-50 Inhub] 2 puff IN BID 10/09/22 Hydrocodone Bit/Acetaminophen [Hydrocodon-Acetaminophn 10-325] 10 - 325 mg PO Q8HP PRN 10/09/22 Losartan Potassium [Cozaar*] 50 mg PO BEDTIME 10/09/22 Metformin HCl 1,000 mg PO BID 10/09/22 Rivaroxaban [Xarelto] 20 mg PO DAILY 10/09/22 Simvastatin 40 mg PO BEDTIME 10/09/22 Furosemide [Lasix] 40 mg PO DAILY #30 tab 05/28/23 Glimepiride 4 mg PO DAILY 05/28/23 Nicotine [Nicotine Patch] 1 each TD DAILY 05/28/23 Quetiapine [Seroquel*] 100 mg PO BEDTIME 05/28/23 hydrOXYzine HCL [Atarax*] 25 mg PO Q8HP PRN 05/28/23 predniSONE [Deltasone] 20 mg PO DAILY #7 tab 05/28/23 - Past Medical/Surgical History Diabetic: Yes -: Type 2 Diabetes, Non-Insulin Dependent -: Factor V Leiden -: CVAs -: Hypertension -: Tubal Ligation -: Tonsillectomy -: tubal ligation Psychosocial/ Personal History: Patient lives at home alone. - Family History Mother -: Cancer Notes: unknown kind Father -: Cancer Notes: unknown kind paternal grandmother -: Diabetes - Social History Alcohol use: No CD- Drugs: No Caffeine use: Yes Physical Examination - Vital Signs Pulse: 110 Pulse Ox (%): 97 - Physical Exam General: Mild distress, Obese HEENT: Atraumatic, Normocephalic Respiratory: Other (No wheezing or crackles heard) Cardiovascular: No edema, Normal pulses Gastrointestinal: Other (Obese abdomen. Nontender, nondistended) Neurological: Normal speech, Cranial nerves 3-12 intact - Studies Laboratory Data (last 24 hrs) 03/24/24 03/24/24 03/24/24 00:33 00:33 00:33 WBC 9.00 Hgb 12.0 Hct 37.6 Plt Count 315 PT 11.5 INR 1.05 APTT 27.8 Sodium 140 Potassium 4.2 BUN 12 Creatinine 1.14 H Glucose 237 H Magnesium 1.9 Total Bilirubin 0.4 AST 91 H ALT 61 H Alkaline Phosphatase 109 Lipase 118 H Assessment and Plan - Problems (Diagnosis) (1) CHF (congestive heart failure) Current Visit: No Status: Acute Qualifiers: (2) COPD with acute exacerbation Current Visit: No Status: Acute (3) Type 2 diabetes mellitus Current Visit: No Status: Acute Qualifiers: (4) Hypertension Current Visit: No Status: Chronic Qualifiers: - Plan Assessment Patient is a 58-year-old female with a past medical history of congestive heart failure and COPD. She is being admitted with a working diagnosis of COPD exacerbation. Acute hypoxemic respiratory failure Patient's risk factors include COPD and congestive heart failure Pulmonary embolism has not been ruled out Follow D-dimers and obtain a CT chest if indicated She is currently on the BiPAP Will wean off as tolerated COPD exacerbation Starting a COPD regimen which will include antibiotics, systemic corticosteroids and DuoNebs Will also place the patient on Dulera Congestive heart failure Possibly acute on chronic We do not have a baseline echocardiogram She reportedly has systolic CHF Will give a dose of IV Lasix Will obtain a 2D echo Morbid obesity She will benefit from lifestyle modification with diet and exercise DVT prophylaxisLovenox GI prophylaxisPPI DispoHome when medically cleared - Advance Directives Does patient have a Living Will: No Does patient have a Durable POA for Healthcare: No
[2024-03-24] MEDS: DULERA 200/5 (MOMETASONE/FORMOTEROL) INHALER IH SCH (03:02)
[2024-03-24] MEDS ORDERED: SODIUM CHLORIDE 0.9% 10ML INJ IV PRN (03:06)
[2024-03-24] MEDS: ALBUTEROL 2.5 MG/3 ML NEB SOL NEB SCH (04:03)
[2024-03-24] MEDS: IPRATROPIUM BROM 0.5MG/2.5ML NEB SCH (04:03)
[2024-03-24] MEDS ORDERED: METHYLPREDNISOLONE 40 MG INJ ONE (05:03)
[2024-03-24] MEDS ORDERED: Levofloxacin 750mg IV 750 MG/150 ML BAG IV ONE (05:03)
[2024-03-24] MEDS ORDERED: FUROSEMIDE 40 MG/4 ML VIAL ONE (05:03)
[2024-03-24 05:10] VITALS: BMI 40.2
[2024-03-24] MEDS: METHYLPREDNISOLONE 40 MG INJ IV SCH (05:12)
[2024-03-24] MEDS: FUROSEMIDE 40 MG/4 ML VIAL IV ONE (05:12)
[2024-03-24] MEDS: Levofloxacin 750mg IV 750 MG/150 ML BAG IV SCH (05:12)
[2024-03-24] MEDS: PANTOPRAZOLE 40 MG INJ IVP SCH (07:47)
[2024-03-24] MEDS ORDERED: D50W 25 GM/50 ML SYRINGE IV PRN (08:17)
[2024-03-24] MEDS ORDERED: GLUCAGON 1 MG/VIAL IM PRN (08:17)
[2024-03-24] MEDS ORDERED: D10W 125 ML IV PRN (08:30)
--- NOTE | 2024-03-24 08:41 | RAD REPORT ---
EXAM DESCRIPTION: CT - Chest Angio - 03/24/2024 8:20 am CLINICAL HISTORY: Chest pain COMPARISON: 2022 and September 2022 TECHNIQUE: Dynamically enhanced axial 3 mm thick images of the chest were obtained during administra tion of 100 mL Isovue 370 IV contrast. Coronal and oblique reconstruction images were generated and r eviewed. Exam utilizes a protocol for optimal evaluation of pulmonary arterial tree. Maximum intensity projections 3D imaging was utilized All CT scans are performed using dose optimization technique as appropriate and may include automated exposure control or mA/KV adjustment according to patient size. FINDINGS: A pulmonary embolus is not seen. A thoracic aortic aneurysm is not noted. Small left pleural effusion. A pericardial effusion is not seen. A lung consolidation is not present. 15 millimeter right lower lobe nodule unchanged. IMPRESSION: Negative for a pulmonary embolism. 15 millimeter nodule stable from September 2022 probably benign. Followup unenhanced CT chest 6 months recommended to reassess stability
[2024-03-24] MEDS: INSULIN REGULAR (HUMAN) 100 UNIT/ML ONE (08:46)
[2024-03-24] MEDS: INSULIN REGULAR (HUMAN) 100 UNIT/ML SQ SCH (08:52)
--- NOTE | 2024-03-24 13:09 | RAD REPORT ---
EXAM DESCRIPTION: RAD - Chest Single View - 03/24/2024 12:45 am CLINICAL HISTORY: CHEST PAIN COMPARISON: None FINDINGS: Cardiac silhouette is within normal limits. EKG leads project over the chest. There is no focal parenchymal or pleural disease. There is no acute osseous process visualized. IMPRESSION: No evidence of acute cardiopulmonary disease. Electronically signed by: Vasquez Alfred MD 03/24/2024 12:55 AM CDT Due to temporary technical issues with the PACS/Fluency reporting system, reports are being signed by the in house radiologist without review as a courtesy to ensure prompt reporting. The interpreting R adiologist is fully responsible for the content of the report.
--- NOTE | 2024-03-24 13:59 | EKG ---
Test Date: 2024-03-24 Test Time: 01:35:44 Heel Burnisher: ARIANNA MEASUREMENT RESULTS: Intervals: Rate: 108 NV: 158 QRSD: 98 QT: 388 QTc: 519 [place]: P: 70 NV: 158 QRS: 52 T: 62 INTERPRETIVE STATEMENTS: Sinus tachycardia Otherwise normal ECG Compared to ECG 05/27/2023 18:53:58 No significant changes Electronically Signed On 03-24-24 13:59:07 CDT by Freddy Venegas
--- NOTE | 2024-03-24 14:30 | ECHO ---
HEIGHT: 5 ft 2 in WEIGHT: 220 lb 0 oz DATE OF STUDY: 03/24/[address]: Prince Grace Whyte MD 2-DIMENSIONAL: YES M.MODE: YES DOPPLER: YES COLOR FLOW: YES TDS: YES PORTABLE: YES DEFINITY: BUBBLE STUDY: DIAGNOSIS: SHORTNESS OF BREATH CARDIAC HISTORY: CATHERIZATION: NO SURGERY: NO PROSTHETIC VALVE: NO PACEMAKER: NO MEASUREMENTS (cm) DIASTOLIC (NORMALS) SYSTOLIC (NORMALS) IVSd 1.3 (0.6-1.2) LA Diam 3.6 (1.9-4.0) LVEF 49% LVIDd 5.6 (3.5-5.7) LVIDs 4.2 (2.0-3.5) %FS 25% LVPWd 1.3 (0.6-1.2) Ao Diam 2.8 (2.0-3.7) 2 DIMENSIONAL ASSESSMENT: RIGHT ATRIUM: NORMAL LEFT ATRIUM: NORMAL RIGHT VENTRICLE: NORMAL LEFT VENTRICLE: MILD DILATED TRICUSPID VALVE: NORMAL MITRAL VALVE: MILD MITRAL REGURGITATION PULMONIC VALVE: NORMAL AORTIC VALVE: NORMAL PERICARDIAL EFFUSION: NONE AORTIC ROOT: NORMAL LEFT VENTRICULAR WALL MOTION: NORMAL DOPPLER/COLOR FLOW: NORMAL COMMENTS: 1. MILD DILATED LEFT VENTRICULAR CAVITY, LOW NORMAL LEFT VENTRICULAR SYSTOLIC FUNCTION, EJECTION FRACTION 50%, CANNOT ACCURATELY ACCESS WALL MOTION DUE TO POOR IMAGES. 2. ELEVATED RIGHT ATRIAL PRESSURE FILLING PRESSURE (RIGHT ATRIAL PRESSURE GREATER THAN 20 mmHg) 3. MILD MITRAL REGURGITATION TECHNOLOGIST: KRANTHI GOMEZ
[2024-03-24] MEDS: ENOXAPARIN 40 MG/0.4 ML SQ SCH (16:10)
[2024-03-24] MEDS: BENZONATATE 100 MG CAP PO PRN (16:51)
[2024-03-24] MEDS ORDERED: ALBUTEROL INHALER 200 PUFF/6.7 GM IH PRN (16:54)
[2024-03-24] MEDS ORDERED: HOME MED 1 EA UNK (Simvastatin [Simvastatin] 40 MG Tablet) PO SCH (21:00)
[2024-03-24] MEDS ORDERED: ONDANSETRON 4 MG/2 ML VIAL IV PRN (21:04)
[2024-03-24] MEDS: ALPRAZOLAM 1 MG TABLET PO SCH (21:10)
[2024-03-24] MEDS: carisoprodoL 350 MG TAB PO SCH (21:10)
[2024-03-24] MEDS: INSULIN GLARGINE 100 UNIT/ML SQ SCH (21:10)
[2024-03-24] MEDS: ONDANSETRON 4 MG/2 ML VIAL ONE (21:16)
[2024-03-24] MEDS: ATORVASTATIN 20 MG TAB PO SCH (21:16)
--- NOTE | 2024-03-25 07:25 | P.PN ---
Date of Service: 03/25/24 Subjective: Sleeping but easily aroused On room air No acute distress, lung sounds clear Physical Exam General: AAOx3, NAD, obese HEENT: mucus membranes moist, nare normal Head/Neck: Normocephalic, atraumatic, neck supple Respiratory: symmetrical chest expansion, no accessory muscles used, lungs clear on ausultation Cardiac: RRR, no murmurs or gallops noted Extremities: No edema present, peripheral pulses 2+ Abdominal: soft and benign on palpation, distended (obese) Neurological: clear speech, appropriate Psych: normal mood and affect, Judgement appropriate Vitals Reviewed Problem list Acute hypoxemic respiratory failure COPD exacerbation Congestive heart failure Morbid obesity Assessment and Plan Acute hypoxemic respiratory failure COPD exacerbation 15 millimeter right lower lobe nodule Patient's risk factors include COPD and congestive heart failure Pulmonary embolism has not been ruled out D-dimers 2559 CT chest reports " Negative for a pulmonary embolism." Followup unenhanced CT chest 6 months recommended to reassess stability of nodule 4 LNC weaned to room air Will wean off as tolerated antibiotics, systemic corticosteroids and DuoNebs continue Dulera Blood culture-NGTD Congestive heart failure Possibly acute on chronic Reportedly systolic CHF Will give a dose of IV Lasix ECHO reports Mild mitral regurgitation, elevated right atrial pressure filling > 20 mmhg, MILD DILATED LEFT VENTRICULAR CAVITY, LOW NORMAL LEFT VENTRICULAR SYSTOLIC FUNCTION, EJECTION FRACTION 50%, CANNOT ACCURATELY ACCESS WALL MOTION DUE TO POOR IMAGES. Morbid obesity She will benefit from lifestyle modification with diet and exercise DVT prophylaxisLovenox Full code DispoHome when medically cleared
[2024-03-25 07:39] LABS: Absolute Basophils 0.1 K/uL (0-0.5); Absolute Lymphocytes (CBC) 0.7 K/uL (0.7-4.9); Absolute Monocytes 0.7 K/uL (0.1-1.3); Absolute Neutrophil 13.5 K/uL (1.8-8.0); Basophils % 0.6 % (0-1.3); Hematocrit 35.2 % (36.0-45.0); Hemoglobin 11.4 g/dL (12.0-15.0); Lymphocytes % 4.9 % (15.3-44.8); MCH 26.5 pg (27.0-35.0); MCHC 32.4 g/dL (32.0-36.0); MCV 81.9 fL (80-100); MPV 8.3 fL (7.6-11.3); Monocytes % 4.8 % (3.3-12.3); Neutrophils % 89.7 % (41.7-73.7); Nucleated Red Blood Cells % 0.1 % (0-0); Platelets 275 thou/uL (152-406); Red Cell Distribution Width 16.1 % (12.1-15.2)
[2024-03-25 07:55] LABS: Anion Gap 7.9 mEq/L (5.0-15.0); Magnesium 2.4 mg/dL (1.6-2.4); Phosphorus 2.5 mg/dL (2.5-4.9); Potassium 4.9 mEq/L (3.5-5.1)
[2024-03-25] MEDS: LOSARTAN POTASSIUM 50 MG TABLET PO SCH (08:16)
[2024-03-25 10:18] LABS: Blood Morphology Comment NOT SEEN (NOT SEEN); Platelet Estimate ADEQ; White Blood Cell Scan OK (OK)
[2024-03-25] MEDS: RIVAROXABAN 20 MG TABLET PO SCH (16:09)
[2024-03-25] MEDS: ACETAMINOPHEN 500 MG TAB PO PRN (16:09)
[2024-03-25] MEDS: predniSONE 20 MG TAB PO SCH (20:34)
[2024-03-25] MEDS: INSULIN GLARGINE 100 UNIT/ML SQ SCH (20:35)
[2024-03-26 06:25] LABS: Absolute Monocytes 0.9 K/uL (0.1-1.3); Absolute Neutrophil 10.9 K/uL (1.8-8.0); Basophils % 0.2 % (0-1.3); Hematocrit 33.8 % (36.0-45.0); Hemoglobin 10.8 g/dL (12.0-15.0); Lymphocytes % 7.7 % (15.3-44.8); MCH 26.4 pg (27.0-35.0); MCHC 31.9 g/dL (32.0-36.0); MCV 82.7 fL (80-100); MPV 8.2 fL (7.6-11.3); Monocytes % 6.9 % (3.3-12.3); Neutrophils % 85.2 % (41.7-73.7); Nucleated Red Blood Cells % 0.1 % (0-0); Platelets 233 thou/uL (152-406); RBC Red Blood Cell Count 4.09 M/uL (3.86-4.86); Red Cell Distribution Width 15.9 % (12.1-15.2)
[2024-03-26 06:37] LABS: Anion Gap 5.7 mEq/L (5.0-15.0); Magnesium 2.2 mg/dL (1.6-2.4); Phosphorus 2.4 mg/dL (2.5-4.9); Potassium 4.7 mEq/L (3.5-5.1)
--- NOTE | 2024-03-26 07:35 | P.PN ---
Date of Service: 03/26/24 Subjective: Sleeping during morning examination Visited during the afternoon and she appeared to be in respiratory distress Respiratory provided a Xopenex nebulizer treatment Mucinex added Physical Exam General: AAOx3, some distress, obese HEENT: mucus membranes moist, nare normal Head/Neck: Normocephalic, atraumatic, neck supple Respiratory: symmetrical chest expansion, no accessory muscles used, lungs clear on ausultation Cardiac: Tachycardic, no murmurs or gallops noted Extremities: No edema present, peripheral pulses 2+ Abdominal: soft and benign on palpation, distended (obese) Neurological: clear speech, appropriate Psych: normal mood and affect, Judgement appropriate Vitals Reviewed Problem list Acute hypoxemic respiratory failure COPD exacerbation 15 millimeter right lower lobe nodule Congestive heart failure Morbid obesity Diabetes NIDDM Assessment and Plan Acute hypoxemic respiratory failure COPD exacerbation 15 millimeter right lower lobe nodule Patient's risk factors include COPD and congestive heart failure Pulmonary embolism has not been ruled out D-dimers 2559 CT chest reports " Negative for a pulmonary embolism." Followup unenhanced CT chest 6 months recommended to reassess stability of nodule 4 LNC weaned to room air Will wean off as tolerated antibiotics, systemic corticosteroids and DuoNebs continue Dulera Blood culture-NGTD mucinex consult Dr. Mota-recommend Trelegy or Breztri at home, continue steroid bronchodilators, and follow-up outpatient Congestive heart failure Possibly acute on chronic Reportedly systolic CHF Will give a dose of IV Lasix ECHO reports Mild mitral regurgitation, elevated right atrial pressure filling > 20 mmhg, MILD DILATED LEFT VENTRICULAR CAVITY, LOW NORMAL LEFT VENTRICULAR SYSTOLIC FUNCTION, EJECTION FRACTION 50%, CANNOT ACCURATELY ACCESS WALL MOTION DUE TO POOR IMAGES. Diabetes Mellitis-NIDDM Accucheck with SSI Semglee 15 units changed to 30 units Morbid obesity She will benefit from lifestyle modification with diet and exercise DVT prophylaxisXarelto Full code DispoHome when medically cleared
[2024-03-26] MEDS: POTASS/SODIUM PHOSPHATE 1 PKT POWD.PACK PO SCH (09:26)
[2024-03-26] MEDS: GUAIFENESIN/CODEINE 5ML UCUP PO PRN (10:47)
[2024-03-26] MEDS: MORPHINE 2 MG/ML SYR IV ONE (13:20)
[2024-03-26] MEDS: LEVALBUTEROL 1.25 MG/3 ML NEB NEB SCH (13:33)
[2024-03-26] MEDS ORDERED: IPRATROPIUM BROM 0.5MG/2.5ML NEB SCH (14:00)
[2024-03-26] MEDS ORDERED: ALBUTEROL 2.5 MG/3 ML NEB SOL NEB SCH (14:00)
[2024-03-26] MEDS: ALPRAZOLAM 1 MG TABLET PO ONE (14:02)
[2024-03-26] MEDS: GUAIFENESIN 600 MG SA TAB PO SCH (14:02)
--- NOTE | 2024-03-26 20:40 | P.CNS ---
Date of Consult: 03/26/24 Reason for Consult: COPD exacerbation Chief Complaint: shortness of breath History of Present Illness: Patient is 58 years of age was admitted with COPD exacerbation progressive dyspnea for the past 2 weeks history of COPD uses albuterol at home still continues to smoke no prior history of cardiac problems Allergies morphine Allergy (Verified 10/08/22 23:52) Anaphylaxis Home Medications: Albuterol Sulfate [Albuterol Sulfate Hfa] 2 puff IN QID PRN 10/09/22 Carisoprodol [Soma] 350 mg PO TID 10/09/22 Hydrocodone Bit/Acetaminophen [Hydrocodon-Acetaminophn 10-325] 10 - 325 mg PO Q8HP PRN 10/09/22 Losartan Potassium [Cozaar*] 50 mg PO DAILY 10/09/22 Metformin HCl 1,000 mg PO BID 10/09/22 Rivaroxaban [Xarelto] 20 mg PO DAILY 10/09/22 Simvastatin 40 mg PO BEDTIME 10/09/22 Glimepiride 4 mg PO BID 05/28/23 ALPRAZolam [Xanax*] 1 tab PO BEDTIME 03/24/24 - Past Medical/Surgical History Diabetic: Yes -: Type 2 Diabetes, Non-Insulin Dependent -: Factor V Leiden -: CVAs -: Hypertension -: Tubal Ligation -: Tonsillectomy -: tubal ligation Psychosocial/ Personal History: Patient lives at home alone. - Family History Mother Medical History: Cancer Notes: unknown kind Father Medical History: Cancer Notes: unknown kind paternal grandmother Medical History: Diabetes - Social History Smoking Status: Current every day smoker Alcohol use: No CD- Drugs: No Caffeine use: Yes Place of Residence: Home Review of Systems Unremarkable General: Weakness Respiratory: Cough, Shortness of Breath Physical Examination Temp Pulse Resp BP Pulse Ox 97 F 107 H 19 147/67 H 93 03/26/24 20:00 03/26/24 20:00 03/26/24 20:00 03/26/24 20:00 03/26/24 20:00 General: Alert, Oriented x3, Moderate distress Respiratory: Diminished, Expiratory wheezes Cardiovascular: No edema, Regular rate/rhythm, Normal S1 S2 Gastrointestinal: Normal bowel sounds, Soft and benign - Problems (1) COPD with acute exacerbation Current Visit: No Status: Acute Plan: Patient is 58 years of age admitted with COPD exacerbation active smoker chest x-rays CAT scans are unremarkable patient is anticoagulated is on Eliquis only uses albuterol at home she will need long-acting bronchodilators CT scan shows a right lower lobe 5 to 15 mm solitary pulmonary nodule which has been stable since 2021 consultations she will need yearly low-dose CAT scans as risk for lung cancer otherwise labs reviewed white count was normal on admission her vital signs are all stable continue with steroids bronchodilators possible discharge in 1 to 2 days follow-up with me Patient will benefit with either Trelegy or Breztri at home
[2024-03-26] MEDS: ARFORMOTEROL TARTRATE 15 MCG/2 ML VIAL.NEB NEB SCH (20:43)
[2024-03-27 07:16] LABS: Absolute Basophils 0.1 K/uL (0-0.5); Absolute Lymphocytes (CBC) 1.8 K/uL (0.7-4.9); Absolute Neutrophil 9.4 K/uL (1.8-8.0); Basophils % 0.9 % (0-1.3); Eosinophils % 0.2 % (0-4.4); Hematocrit 33.4 % (36.0-45.0); Lymphocytes % 14.6 % (15.3-44.8); MCV 81.9 fL (80-100); MPV 8.1 fL (7.6-11.3); Monocytes % 8.4 % (3.3-12.3); Neutrophils % 75.9 % (41.7-73.7); Nucleated Red Blood Cells % 0.2 % (0-0); Platelets 281 thou/uL (152-406); RBC Red Blood Cell Count 4.08 M/uL (3.86-4.86)
[2024-03-27] MEDS: IPRATROPIUM BROM 0.5MG/2.5ML NEB SCH (07:27)
[2024-03-27 07:34] LABS: Anion Gap 6.5 mEq/L (5.0-15.0); Phosphorus 2.2 mg/dL (2.5-4.9); Potassium 4.5 mEq/L (3.5-5.1)
[2024-03-27] MEDS: levoFLOXacin 250 MG TAB PO SCH (08:22)
[2024-03-27] MEDS: FUROSEMIDE 40 MG/4 ML VIAL IV ONE (08:26)
[2024-03-27] MEDS ORDERED: levoFLOXacin 250 MG TAB PO SCH (09:00)
--- NOTE | 2024-03-27 09:58 | RAD REPORT ---
EXAM DESCRIPTION: RADChest Single View03/27/2024 8:51 am CLINICAL HISTORY: shortness of breath COMPARISON: Chest Single View dated 03/24/2024; Chest Single View dated 05/27/2023; Chest Pa And Lat (2 Views) dated 10/12/2022; Chest Single View dated 10/10/2022 TECHNIQUE: Portable AP view of the chest. FINDINGS: The lungs are clear. No pneumothorax or effusion. The cardiomediastinal contours are unre markable. IMPRESSION: No acute cardiopulmonary process.
--- NOTE | 2024-03-27 11:59 | P.PN ---
Date of Service: 03/27/24 Subjective: Awake and feeling much better able to breath clearly able to speak without coughing frequently removing the oxygen Physical Exam General: AAOx3,NAD, obese HEENT: mucus membranes moist, nare normal Head/Neck: Normocephalic, atraumatic, neck supple Respiratory: symmetrical chest expansion, lungs clear on ausultation, on RA Cardiac: Tachycardic, no murmurs or gallops noted Extremities: No edema present, peripheral pulses 2+ Abdominal: normal bowel sounds, soft and benign on palpation, distended (obese) Neurological: clear speech, appropriate Psych: normal mood and affect, Judgement appropriate Vitals Reviewed Problem list Acute hypoxemic respiratory failure COPD exacerbation 15 millimeter right lower lobe nodule Congestive heart failure Morbid obesity Diabetes NIDDM Assessment and Plan Acute hypoxemic respiratory failure COPD exacerbation 15 millimeter right lower lobe nodule Patient's risk factors include COPD and congestive heart failure Pulmonary embolism has not been ruled out D-dimers 2559 CT chest reports " Negative for a pulmonary embolism." Followup unenhanced CT chest 6 months recommended to reassess stability of nodule 4 LNC weaned to room air home O2 walk test antibiotics, systemic corticosteroids and DuoNebs continue Dulera Blood culture-NGTD mucinex consult Dr. Mota-recommend Trelegy or Breztri at home, continue steroid bronchodilators, and follow-up outpatient Congestive heart failure Possibly acute on chronic Reportedly systolic CHF Will give a dose of IV Lasix ECHO reports Mild mitral regurgitation, elevated right atrial pressure filling > 20 mmhg, MILD DILATED LEFT VENTRICULAR CAVITY, LOW NORMAL LEFT VENTRICULAR SYSTOLIC FUNCTION, EJECTION FRACTION 50%, CANNOT ACCURATELY ACCESS WALL MOTION DUE TO POOR IMAGES. Diabetes Mellitis-NIDDM Accucheck with SSI Semglee 30 units hyperglycemic with mother's day treat Morbid obesity She will benefit from lifestyle modification with diet and exercise DVT prophylaxisXarelto Full code DispoHome when medically cleared, O2 home test today.
[2024-03-28 03:46] LABS: Absolute Basophils 0.1 K/uL (0-0.5); Absolute Lymphocytes (CBC) 1.1 K/uL (0.7-4.9); Absolute Monocytes 0.7 K/uL (0.1-1.3); Absolute Neutrophil 7.3 K/uL (1.8-8.0); Basophils % 0.7 % (0-1.3); Eosinophils % 0.2 % (0-4.4); Hematocrit 34.8 % (36.0-45.0); Hemoglobin 11.4 g/dL (12.0-15.0); Lymphocytes % 12.2 % (15.3-44.8); MCH 27.1 pg (27.0-35.0); MCHC 32.8 g/dL (32.0-36.0); MCV 82.6 fL (80-100); MPV 8.5 fL (7.6-11.3); Monocytes % 7.6 % (3.3-12.3); Neutrophils % 79.3 % (41.7-73.7); Nucleated Red Blood Cells % 0.1 % (0-0); Platelets 262 thou/uL (152-406); RBC Red Blood Cell Count 4.21 M/uL (3.86-4.86); Red Cell Distribution Width 15.5 % (12.1-15.2)
[2024-03-28 04:05] LABS: Anion Gap 8.3 mEq/L (5.0-15.0); Phosphorus 2.4 mg/dL (2.5-4.9); Potassium 4.3 mEq/L (3.5-5.1)
[2024-03-28] MEDS ORDERED: D50W 25 GM/50 ML SYRINGE IV PRN (04:35)
[2024-03-28] MEDS ORDERED: GLUCAGON 1 MG/VIAL IM PRN (04:35)
[2024-03-28] MEDS: INSULIN NPH (HUMAN) 100 UNITS/ML SQ ONE (04:35)
[2024-03-28] MEDS: INSULIN GLARGINE 100 UNIT/ML SQ ONE (05:16)
[2024-03-28] MEDS: INSULIN REGULAR (HUMAN) 100 UNIT/ML ONE (08:24)
[2024-03-28] MEDS: INSULIN REGULAR (HUMAN) 100 UNIT/ML SQ SCH (08:27)
[2024-03-28] MEDS: GLIMEPIRIDE 2 MG TABLET PO SCH (08:28)
[2024-03-28] MEDS: POTASS/SODIUM PHOSPHATE 1 PKT POWD.PACK PO SCH (08:28)
[2024-03-28] MEDS: METFORMIN HCL 500 MG TAB PO SCH (08:28)
[2024-03-28 08:40] VITALS: BP 143/81; TEMP 97.3
[2024-03-28 09:08] VITALS: O2SAT 96
--- NOTE | 2024-03-28 12:19 | P.PN ---
Subjective Date of Service: 03/28/24 Chief Complaint: COPD exacerbation Subjective: Improving (Patient is improving doing much better has improved significantly) Review of Systems General: Weakness Respiratory: Shortness of Breath Physical Examination - Vital Signs Temperature: 97.3 F Blood Pressure: 143/81 Pulse: 105 Respirations: 20 Pulse Ox (%): 97 - Physical Exam General: Alert, In no apparent distress, Oriented x3 Respiratory: Clear to auscultation bilaterally, Diminished Cardiovascular: No edema, Regular rate/rhythm Assessment And Plan - Current Problems (Diagnosis) (1) COPD with acute exacerbation Status: Acute Plan: Patient is 58 years of age admitted with COPD exacerbation doing much better recommend discharge home on long-acting bronchodilators and acting bronchodilators as needed low-dose prednisone 10 mg twice a day he was discharged home on prednisone and to follow-up with me in 2 weeks
--- NOTE | 2024-03-28 20:26 | P.DS ---
Admission Date: 03/24/24 Discharge Date: 03/28/24 Disposition: ROUTINE DISCHARGE Discharge Condition: GOOD Reason for Admission: COPD exacerbation Brief History of Present Illness: Diagnosis Acute hypoxemic respiratory failure COPD exacerbation 15 millimeter right lower lobe nodule Congestive heart failure Morbid obesity Diabetes NIDDM HPI 03/24/24 Zroaida Mcleod is a 58-year-old female. She has a history of COPD and type 2 diabetes mellitus. She presented to the ER with an acute onset of shortness of breath and dyspnea on exertion. Associated symptoms included chest pain. She has no cough. She arrived in the ER hemodynamically stable but in respiratory distress. Chest x-ray was unremarkable for acute infiltrates. Patient was started on BiPAP and given nebulizer. During my evaluation, patient was in minimal distress. She had a BiPAP mask on. Hospital Course: Zoraida Mcleod is a pleasant 58 year old female with a past medical history significant for COPD and type 2 diabetes mellitus who was admitted to the [facility] on 03/24/24 for SOB and dyspnea on exertion. Zoraida Mcleod presented to the ED with chief complaint of SOB and dyspnea on exertion. She has a history of COPD and was placed on the bipap while in the ED. She has tolerated steroids, IV antibiotics, and nebulizer treatments. She has improved to tolerate room air. She has been hyperglycemic and will require insulin at discharge while she is on steroids. She is tolerating PO diet, urnitating without difficulty, ambulating independently, and passed the walk test with oxygen saturation of 90 to 96% during ambulation on room air. She was educate to follow up with Dr. Mota for a sleep study to discover the need for a CPAP. On 03/28/24, Zoraida was seen on morning rounds and deemed medically stable for discharge. Zoraida was discharged with instructions to schedule follow-up appointments with PCP and Dr. Mota. Zoraida was provided prescriptions for Levaquin, NovolinPen, prednisone, Tessalon Perle, and trelegy. The patient was given the opportunity to ask questions and reported no further questions. Furthermore, all questions were answered to the best of my ability. A copy of this discharge summary will be sent to the above providers to facilitate continuity of care. Physical Exam General: Alert and oriented x 3, no acute distress, obese HEENT: mucus membranes moist, nare normal Head/Neck: Normocephalic, atraumatic, neck supple Respiratory: symmetrical chest expansion, clear lung sounds bilaterally, on RA Cardiac: Tachycardic, no murmurs or gallops noted Extremities: No edema present, peripheral pulses 2+ Abdominal: normal bowel sounds, soft and benign on palpation, distended (obese) Neurological: clear speech, appropriate Psych: normal mood and affect, Judgement appropriate Vital Signs/Physical Exam: Temp Pulse Resp BP Pulse Ox 97.3 F 105 H 20 143/81 H 97 03/28/24 12:19 03/28/24 12:19 03/28/24 12:19 03/28/24 12:19 03/28/24 12:19 Laboratory Data at Discharge: WBC 9.20 thou/uL (4.3-10.9) 03/28/24 02:39 Hgb 11.4 g/dL (12.0-15.0) L 03/28/24 02:39 Hct 34.8 % (36.0-45.0) L 03/28/24 02:39 Plt Count 262 thou/uL (152-406) 03/28/24 02:39 PT 11.5 SECONDS (9.5-12.5) 03/24/24 00:33 INR 1.05 03/24/24 00:33 APTT 27.8 SECONDS (24.3-36.9) 03/24/24 00:33 Sodium 135 mEq/L (136-145) L 03/28/24 02:39 Potassium 4.3 mEq/L (3.5-5.1) 03/28/24 02:39 BUN 19 mg/dL (7-18) H 03/28/24 02:39 Creatinine 1.01 mg/dL (0.55-1.02) 03/28/24 02:39 Glucose 457 mg/dL (74-106) H* 03/28/24 02:39 Phosphorus 2.4 mg/dL (2.5-4.9) L 03/28/24 02:39 Magnesium 2.0 mg/dL (1.6-2.4) 03/28/24 02:39 Total Bilirubin 0.4 mg/dL (0.2-1.0) 03/24/24 00:33 AST 91 U/L (15-37) H 03/24/24 00:33 ALT 61 U/L (13-56) H 03/24/24 00:33 Alkaline Phosphatase 109 U/L (45-117) 03/24/24 00:33 Lipase 118 U/L (13-75) H 03/24/24 00:33 Home Medications: Albuterol Sulfate [Albuterol Sulfate Hfa] 2 puff IN QID PRN 10/09/22 Carisoprodol [Soma] 350 mg PO TID 10/09/22 Hydrocodone Bit/Acetaminophen [Hydrocodon-Acetaminophn 10-325] 10 - 325 mg PO Q8HP PRN 10/09/22 Losartan Potassium [Cozaar*] 50 mg PO DAILY 10/09/22 Metformin HCl 1,000 mg PO BID 10/09/22 Rivaroxaban [Xarelto] 20 mg PO DAILY 10/09/22 Simvastatin 40 mg PO BEDTIME 10/09/22 Glimepiride 4 mg PO BID 05/28/23 ALPRAZolam [Xanax*] 1 tab PO BEDTIME 03/24/24 Fluticasone/Umeclidin/Vilanter [Trelegy Ellipta 100-62.5-25] 1 each IH DAILY 30 Days #30 aero 03/26/24 Benzonatate [Tessalon Perle*] 200 mg PO TID PRN 10 Days #30 cap 03/28/24 Insulin -Regular Human [Novolin -R*] See Protocol SQ TID 10 Days #3 ml 03/28/24 Mometasone/Formoterol [Dulera 200 Mcg/5 Mcg Inhaler] 2 puff IH BID inhaler 03/28/24 Pen Needle, Diabetic [1St Tier Unifine Pentips Plus] 1 each MC TID 10 Days #30 dis.ndl 03/28/24 levoFLOXacin [Levaquin*] 250 mg PO DAILY 5 Days #5 tab 03/28/24 predniSONE [Deltasone] 10 mg PO BID 5 Days #10 tab 03/28/24 New Medications: Pen Needle, Diabetic [1St Tier Unifine Pentips Plus] 1 each MC TID 10 Days #30 dis.ndl levoFLOXacin [Levaquin*] 250 mg PO DAILY 5 Days #5 tab Insulin -Regular Human [Novolin -R*] See Protocol SQ TID 10 Days #3 ml predniSONE [Deltasone] 10 mg PO BID 5 Days #10 tab Benzonatate [Tessalon Perle*] 200 mg PO TID PRN 10 Days #30 cap PRN Reason: Cough Fluticasone/Umeclidin/Vilanter [Trelegy Ellipta 100-62.5-25] 1 each IH DAILY 30 Days #30 aero Physician Discharge Instructions: 1. Please call and schedule a follow-up appointment with your PCP in 3-5 days - Please follow-up with your PCP for medication refills/adjustments 2. Please call and schedule a follow-up appointment with Dr. Mota in one week for sleep study 3. Continue Diabetic diet 4. No activity restrictions 5. Return to the ED if symptoms worsen New medications Trelegy Diet: ADA Activity: Ad hitesh Followup: Faraz Mota MD [ACTIVE - CAN ADMIT] - 1 Week (call to schedule an appointment) Rich Dunbar MD [Primary Care Provider] - (follow up in 3-5 days, call to schedule an appointment)
== END 2024-03-28 09:50 | disposition home or self-care (01) | DRG 291 ==
LOC: ER 00:23 → ERHOLD 04:21 → 4TH 05:12
PROVIDERS: ADMIT Internal Medicine; ATTEND Hospitalist
PROC: 4A033R1 Measurement of Arterial Saturation, Peripheral, Percutaneous Approach (ICD-10-PCS; principal; 2024-03-24)
PROC: 5A09557 Assistance with Respiratory Ventilation, Greater than 96 Consecutive Hours, Continuous Positive Airway Pressure (ICD-10-PCS; 2024-03-24)
DX: I11.0 Hypertensive heart disease with heart failure (principal); I50.23 Acute on chronic systolic (congestive) heart failure; J96.01 Acute respiratory failure with hypoxia; J44.1 Chronic obstructive pulmonary disease with (acute) exacerbation; Z68.41 Body mass index [BMI] 40.0-44.9, adult; E66.01 Morbid (severe) obesity due to excess calories; E11.9 Type 2 diabetes mellitus without complications; F17.210 Nicotine dependence, cigarettes, uncomplicated; R91.8 Other nonspecific abnormal finding of lung field; Z60.2 Problems related to living alone; Z88.5 Allergy status to narcotic agent; Z98.51 Tubal ligation status; Z79.52 Long term (current) use of systemic steroids; Z79.01 Long term (current) use of anticoagulants; Z79.84 Long term (current) use of oral hypoglycemic drugs; Z86.73 Personal history of transient ischemic attack (TIA), and cerebral infarction without residual deficits; Z79.899 Other long term (current) drug therapy
CPT/HCPCS: 36415; 36600; 71045; 71275; 80048; 80076; 82550; 82805; 82947; 83036; 83690; 83735; 83880; 84100; 84484; 85025; 85379; 85610; 85730; 87040; 93005; 93306; 94010; 94640; 94660; 94760; 96365; 96366; 96375; 99285; C9113; J1650; J1815; J1940; J2405; J2919; J2920; J3475; J3535; J7512; J7605; J7613; J7614; J7644; Q9967

== ENCOUNTER 2024-11-28 14:38 | Inpatient (IN) | payer OTHER ==
[2024-11-28 15:24] LABS: Absolute Basophils 0.1 K/uL (0-0.5); Absolute Lymphocytes (CBC) 1.7 K/uL (0.7-4.9); Absolute Monocytes 1.1 K/uL (0.1-1.3); Absolute Neutrophil 10.4 K/uL (1.8-8.0); Basophils % 0.7 % (0-1.3); Eosinophils % 0.4 % (0-4.4); Hematocrit 42.5 % (36.0-45.0); Lymphocytes % 12.9 % (15.3-44.8); MCH 27.8 pg (27.0-35.0); MCV 84.3 fL (80-100); MPV 8.4 fL (7.6-11.3); Monocytes % 8.4 % (3.3-12.3); Neutrophils % 77.6 % (41.7-73.7); Nucleated Red Blood Cells % 0.1 % (0-0); Platelets 316 thou/uL (152-406); RBC Red Blood Cell Count 5.05 M/uL (3.86-4.86); Red Cell Distribution Width 15.2 % (12.1-15.2)
[2024-11-28 15:50] LABS: Anion Gap 12.7 mEq/L (5.0-15.0); Potassium 3.7 mEq/L (3.5-5.1)
[2024-11-28 15:55] LABS: Troponin High Sensitivity 14916.9 pg/mL (<58.9)
[2024-11-28 16:01] LABS: Blood Morphology Comment NOT SEEN (NOT SEEN); Platelet Estimate ADEQ; White Blood Cell Scan OK (OK)
--- NOTE | 2024-11-28 16:51 | RAD REPORT ---
EXAMINATION: ONE VIEW CHEST XR CLINICAL INDICATION: Female, 59 years old.,CHEST PAIN TECHNIQUE: Frontal chest projection is submitted. Examination is limited by patient positioning and t echnique. COMPARISON: 03/27/2024 FINDINGS: The lungs are well inflated and clear. Linear superimposition of soft tissue along the medial right b ase somewhat limits evaluation. No pneumothorax or sizable effusion. The heart is normal in size. Mediastinal contours are unremarkable. IMPRESSION: No acute intrathoracic abnormalities.
--- NOTE | 2024-11-28 17:03 | RAD REPORT ---
EXAM: CT Chest For Pe Angio TECHNIQUE: CT angiogram of the chest was performed following intravenous contrast administration, inc luding sagittal and coronal as well as maximum intensity projection reformats. One or more of the following dose reduction techniques were used: Automated exposure control, adjustment of the mA and k V according to patient size, and iterative reconstruction. Unless otherwise specified, incidental findings do not require dedicated imaging follow-up. INDICATION: [facility] MAIN Chest pain;Dyspnea Bed Name: 3 Y COMPARISON: Chest radiograph of the same day. CT chest 03/24/2024. FINDINGS: LINES/TUBES: None. PULMONARY ARTERIES: Main pulmonary arteries are normal in caliber. No filling defects within the pul monary arteries to suggest pulmonary embolus. LUNGS AND AIRWAYS: Stable rounded supradiaphragmatic 1.7 cm right lower lobe nodule, and an adjacent more posterior 7 mL nodule The lungs and central airways are otherwise normal without focal abnormality. PLEURA: No effusion or pneumothorax. HEART AND MEDIASTINUM: The visualized thyroid gland is normal. No mediastinal, hilar, or axillary lym phadenopathy. Heart is unremarkable. No pericardial effusion. SOFT TISSUES AND BONES: No acute osseous abnormality. No significant soft tissue finding. UPPER ABDOMEN: Unremarkable. IMPRESSION: No evidence of acute central pulmonary emboli. No suspicious intrathoracic findings.. Stable findings as above.
[2024-11-28] MEDS ORDERED: NA CHLORIDE 0.9% 500 ML ONE (17:24)
--- NOTE | 2024-11-28 17:26 | ER ---
Nurse's Notes [facility] Name: Zoraida Mcleod Age: 59 yrs Sex: Female : 1965 Arrival Date: 11/28/2024 Time: 14:38 Bed 3 Private MD: Diagnosis: Subsequent non-ST elevation (NSTEMI) myocardial infarction;COPD/ Chronic obstructive pulmonary disease, unspecified Presentation: 11/28 14:52 Chief complaint: Patient states: Palpitations onset yesterday. Pt states that she feels cm10 her heart "pounding in my head". Pt also reports bilateral arm pain and neck pain. Coronavirus screen: Client denies travel out of the [place] in the last 14 days. Ebola Screen: Patient denies travel to an Ebola-affected area in the 21 days before illness onset. Initial Sepsis Screen: Does the patient meet any 2 criteria? HR > 90 bpm. Does the patient have a suspected source of infection? No. Patient's initial sepsis screen is negative. Risk Assessment: Do you want to hurt yourself or someone else? Patient reports no desire to harm self or others. Onset of symptoms was November 27, 2024. 14:52 Method Of Arrival: Ambulatory cm10 14:52 Acuity: VILLA 3 cm10 Triage Assessment: 14:54 General: Appears in no apparent distress. comfortable, Behavior is calm, cooperative, cm10 appropriate for age. Neuro: No deficits noted. Level of Consciousness is awake, alert, obeys commands, Oriented to person, place, time, situation, Appropriate for age. Respiratory: No deficits noted. Airway is patent Respiratory effort is even, unlabored, Respiratory pattern is regular, symmetrical. 18:38 Pain: Complains of pain in chest. ap3 Historical: - Allergies: 14:54 Morphine; cm10 - PMHx: 14:54 COPD; Hypertensive disorder; Cerebrovascular accident; cm10 - PSHx: 14:54 hernia repair; Tonsillectomy; tubal ligation (r); cm10 - Immunization history:: Adult Immunizations unknown. - Infectious Disease History:: Denies. - Family history:: not pertinent. - Social history:: Smoking status: Patient reports the use of cigarette tobacco products, denies chronic smoking, but will smoke occasionally. - Hospitalizations: : No recent hospitalization is reported. Screenin:22 Abuse screen: Denies threats or abuse. Nutritional screening: No deficits noted. ap3 Tuberculosis screening: No symptoms or risk factors identified. 15:56 [facility] ED Fall Risk Assessment (Adult) History of falling in the last 3 months, kc6 including since admission No falls in past 3 months (0 pts) Confusion or Disorientation No (0 pts) Intoxicated or Sedated No (0 pts) Impaired Gait No (0 pts) Mobility Assist Device Used No (0 pt) Altered Elimination No (0 pt) Score/Fall Risk Level 0 - 2 = Low Risk Oriented to surroundings, Maintained a safe environment, Educated pt \\T\\ family on fall prevention, incl call for assistance when getting out of bed. Assessment: 18:37 General: report given to ICU. ap3 Vital Signs: 14:52 BP 105 / 80; Pulse 115; Resp 19; Temp 98.8; Pulse Ox 99% ; Weight 104.33 kg; Height 5 cm10 ft. 2 in. ; Pain 8/10; 15:56 BP 97 / 79; Pulse 93; Resp 15 S; Pulse Ox 95% on R/A; kc6 17:27 BP 121 / 80; Pulse 91; Resp 13; Pulse Ox 97% on R/A; ap3 18:13 BP 119 / 84; Pulse 78; Pulse Ox 98% on R/A; ap3 18:27 BP 132 / 95; Pulse 82; Resp 18; Pulse Ox 98% on R/A; ap3 14:52 Body Mass Index 42.07 (104.33 kg, 157.48 cm) cm10 14:52 Pain Scale: Adult cm10 ED Course: 14:41 Patient arrived in ED. ra3 14:42 Tarun Lopez MD is Attending Physician. rn 14:54 Triage completed. cm10 14:54 Arm band placed on right wrist. Patient placed in an exam room, on a stretcher, on cm10 art historian, on pulse oximetry. EKG completed in triage. Results shown to MD. 15:04 Missed attempt(s): 22 gauge in left antecubital area. ap3 15:05 Missed attempt(s): 22 gauge in right wrist. ap3 15:05 Initial lab(s) drawn, by me, sent to lab. ap3 15:22 Steff Gómez, RN is Primary Nurse. ap3 15:23 Patient has correct armband on for positive identification. Placed in gown. Bed in low ap3 position. Call light in reach. Side rails up X2. Provided Education on: call light education. Client placed on continuous cardiac and pulse oximetry monitoring. NIBP monitoring applied. powerbuilder on. Pulse ox on. NIBP on. 15:43 Accessed peripheral vein via ultrasound, utilizing dynamic ultrasound technique Clean \\T\\ cm10 dry. Dressing intact. Good blood return. Flushes easily. 18g left forearm. 16:19 CT Chest For PE Angio In Process Unspecified. EDMS 16:21 XRAY Chest (1 view) In Process Unspecified. EDMS 17:25 Demian Santos is Hospitalizing Provider. rn 18:03 EKG done, by ED staff, reviewed by Tarun Lopez MD. ap3 18:37 No provider procedures requiring assistance completed. Patient admitted, IV remains in ap3 place. Administered Medications: 17:27 Drug: NS 0.9% IV 500 ml 500 ml IV at 1 bolus once; to be given as a bolus over 30 ap3 minutes Volume: 500 ml; Route: IV; Rate: 1 bolus; Site: left forearm; 18:05 Follow up: IV Status: Completed infusion; IV Intake: 500ml ap3 17:53 Drug: Metoprolol IVP 2.5 mg IVP once; Hold for SBP <100 or HR <60. Route: IVP; Site: ap3 left forearm; 18:13 Follow up: Response: No adverse reaction ap3 18:12 Drug: Heparin (IA-Bolus No thrombolytic) - HEParin IVP 60 units/kg IVP once; Max 5000 ap3 units {Co-Signature: placido (Yesi Correa RN).} Route: IVP; Site: left forearm; 18:38 Follow up: Response: No adverse reaction ap3 18:12 Drug: Heparin (IA Drip) 12 units/kg/[place] - ([place] [address] units, D5W IV 500 ml) IV at ap3 calculated rate Per protocol; Max initial rate 1000 units/hr {Co-Signature: placido (Yesi Correa RN).} Route: IV; Rate: calculated rate; Site: left forearm; 18:38 Follow up: IV Status: Infusion continued upon admission ap3 18:50 Drug: Insulin Regular Human Sub-Q 10 units Sub-Q once {Co-Signature: [email or web address] (sly Gómez RN).} Route: Sub-Q; Site: left upper arm; Medication: 18:03 VIS not applicable for this client. ap3 Intake: 18:05 IV: 500ml; Total: 500ml. ap3 Outcome: 17:25 Decision to Hospitalize by Provider. rn 18:37 Admitted to ICU accompanied by nurse, accompanied by tech, room 6, on monitor, with ap3 chart, 18:37 Condition: good 18:37 Instructed on the need for admit, Demonstrated understanding of instructions, 19:12 Patient left the ED. ap3 Signatures: Dispatcher [employer] EDMS Tarun Lopez MD MD rn Prokisch, Amanda, RN RN ap3 Campbell, Kaitlyn, RN RN [email or web address] Yeimi Gore RN RN [email or web address] Joyce Espinoza Kaitlyn RN [email or web address] Steff Gómez RN
--- NOTE | 2024-11-28 17:26 | EDPHYS ---
Physician Documentation [facility] Name: Zoraida Mcleod Age: 59 yrs Sex: Female : 1965 Arrival Date: 11/28/2024 Time: 14:38 Bed 3 Private MD: ED Physician Tarun Lopez HPI: 11/28 14:53 This 59 yrs old Female presents to ER via Unassigned with complaints of Fast heart rate.rn 14:53 The patient presents with a history of heart racing. Context: The symptoms occur at rn rest. Onset: The symptoms/episode began/occurred yesterday. Duration: The patient or guardian reports multiple episodes, that are intermittent. Modifying factors: The symptoms are aggravated by light activity, The symptoms are alleviated by nothing. Associated signs and symptoms: Pertinent positives: chest pain, SOB, Pertinent negatives: fever. Severity of symptoms: At their worst the symptoms were moderate in the emergency department the symptoms are unchanged. The patient has experienced similar episodes in the past. The patient has not recently seen a physician. Patient reports heart racing, began yesterday, associated with chest pain and shortness of breath. Worse with exertion. No history of arrhythmia. Takes Xarelto. Has had multiple strokes in the past. Historical: - Allergies: 14:54 Morphine; cm10 - PMHx: 14:54 COPD; Hypertensive disorder; Cerebrovascular accident; cm10 - PSHx: 14:54 hernia repair; Tonsillectomy; tubal ligation (r); cm10 - Immunization history:: Adult Immunizations unknown. - Infectious Disease History:: Denies. - Family history:: not pertinent. - Social history:: Smoking status: Patient reports the use of cigarette tobacco products, denies chronic smoking, but will smoke occasionally. - Hospitalizations: : No recent hospitalization is reported. ROS: 14:53 Constitutional: Negative for fever, chills, and weight loss, Cardiovascular: Positive rn for chest pain and heart racing Respiratory: Positive for shortness of breath Abdomen/GI: Negative for abdominal pain, nausea, vomiting, diarrhea, and constipation, MS/Extremity: Negative for injury and deformity, Skin: Negative for injury, rash, and discoloration, Neuro: Negative for headache, weakness, numbness, tingling, and seizure, Exam: 14:53 Constitutional: This is a well developed, well nourished patient who is awake, alert, rn and in no acute distress. Cardiovascular: Tachycardic, regular. Respiratory: Mild tachypnea, diminished at bases, speaking in 3-4 word sentences Abdomen/GI: Soft, nontender 14:58 ECG was reviewed by the Attending Physician. rn Vital Signs: 14:52 BP 105 / 80; Pulse 115; Resp 19; Temp 98.8; Pulse Ox 99% ; Weight 104.33 kg; Height 5 cm10 ft. 2 in. ; Pain 8/10; 15:56 BP 97 / 79; Pulse 93; Resp 15 S; Pulse Ox 95% on R/A; kc6 17:27 BP 121 / 80; Pulse 91; Resp 13; Pulse Ox 97% on R/A; ap3 18:13 BP 119 / 84; Pulse 78; Pulse Ox 98% on R/A; ap3 18:27 BP 132 / 95; Pulse 82; Resp 18; Pulse Ox 98% on R/A; ap3 14:52 Body Mass Index 42.07 (104.33 kg, 157.48 cm) cm10 14:52 Pain Scale: Adult cm10 MDM: 14:42 Medical Screening Exam initiated rn 16:21 ED course: Patient with elevated troponin, awaiting for heparinization until CT rules rn out any contraindication such as dissection or bleeding.. 17:19 Management of patient was discussed with the following: Lathe Machine Operator: Case discussed with rn Dr. Reardon, agrees no STEMI on ECG but concerned of inferior territorial process. Recommends 500 cc bolus followed by Lopressor 2.5 mg, and then load and heparin drip with admission to the hospital.. 17:24 Differential diagnosis: arrythmia, dehydration, stress disorder. Data reviewed: vital rn signs, nurses notes, lab test result(s), EKG, radiologic studies, CT scan, plain films, and as a result, I will admit patient. Consideration of Admission/Observation Patient was admitted/placed on observation. Escalation of care including admission/observation considered. Care significantly affected by the following chronic conditions: Hypertension, Chronic Obstructive Pulmonary Disease. Counseling: I had a detailed discussion with the patient and/or guardian regarding the historical points, exam findings, and any diagnostic results supporting the discharge/admit diagnosis, lab results, radiology results, the need for further work-up and treatment in the hospital. 18:01 ED course: Repeat ECG after Lopressor and fluids shows normal sinus rhythm without rn STEMI. Okay to admit to hospitalist service with heparinization.. 11/28 14:51 Order name: Basic Metabolic Panel; Complete Time: 16:21 rn 11/28 14:51 Order name: CBC with Diff; Complete Time: 16:21 rn 11/28 14:51 Order name: NT PRO-BNP; Complete Time: 16:21 rn 11/28 14:51 Order name: Troponin HS; Complete Time: 16:21 rn 11/28 15:42 Order name: CBC Smear Scan; Complete Time: 16:21 [facility] 11/28 17:35 Order name: Ptt, Activated; Complete Time: 18:45 ap3 11/28 17:35 Order name: PT-INR; Complete Time: 18:45 ap3 11/28 14:51 Order name: XRAY Chest (1 view); Complete Time: 17:06 rn 11/28 14:51 Order name: CT Chest For PE Angio; Complete Time: 17:06 rn 11/28 18:09 Order name: CONS Physician Consult [facility] 11/28 14:51 Order name: Cardiac monitoring; Complete Time: 14:53 rn 11/28 14:51 Order name: EKG - Nurse/Tech; Complete Time: 14:53 rn 11/28 14:51 Order name: IV Saline Lock; Complete Time: 15:43 rn 11/28 14:51 Order name: Labs collected and sent; Complete Time: 15:05 rn 11/28 14:51 Order name: O2 Per Protocol; Complete Time: 14:53 rn 11/28 14:51 Order name: O2 Sat Monitoring; Complete Time: 14:53 rn EC:58 Rate is 121 beats/min. Rhythm is regular. QRS [place] is Normal. PA interval is normal. rn QRS interval is normal. QT interval is normal. No Q waves. T waves are Normal. No ST changes noted. Clinical impression: Sinus tachycardia. Interpreted by me. Reviewed by me. Administered Medications: 17:27 Drug: NS 0.9% IV 500 ml 500 ml IV at 1 bolus once; to be given as a bolus over 30 ap3 minutes Volume: 500 ml; Route: IV; Rate: 1 bolus; Site: left forearm; 18:05 Follow up: IV Status: Completed infusion; IV Intake: 500ml ap3 17:53 Drug: Metoprolol IVP 2.5 mg IVP once; Hold for SBP <100 or HR <60. Route: IVP; Site: ap3 left forearm; 18:13 Follow up: Response: No adverse reaction ap3 18:12 Drug: Heparin (OH-Bolus No thrombolytic) - HEParin IVP 60 units/kg IVP once; Max 5000 ap3 units {Co-Signature: [email or web address] (Yesi Correa RN).} Route: IVP; Site: left forearm; 18:38 Follow up: Response: No adverse reaction ap3 18:12 Drug: Heparin (OH Drip) 12 units/kg/[place] - ([place] [address] units, D5W IV 500 ml) IV at ap3 calculated rate Per protocol; Max initial rate 1000 units/hr {Co-Signature: placido (Yesi Correa RN).} Route: IV; Rate: calculated rate; Site: left forearm; 18:38 Follow up: IV Status: Infusion continued upon admission ap3 18:50 Drug: Insulin Regular Human Sub-Q 10 units Sub-Q once {Co-Signature: aris (sly Gómez RN).} Route: Sub-Q; Site: left upper arm; Disposition Summary: 11/28/24 17:25 Hospitalization Ordered Notes: Hospitalization Status: Inpatient Admission rn Provider: Demian Santos rn Location: Intensive Care Unit rn Condition: Stable rn Problem: new rn Symptoms: have improved rn Bed/Room Type: Standard rn Room Assignment: 6-(11/28/24 18:15) bd Diagnosis - Subsequent non-ST elevation (NSTEMI) myocardial infarction rn - COPD/ Chronic obstructive pulmonary disease, unspecified rn Forms: - Medication Reconciliation Form rn - SBAR form rn - Leadership Thank You Letter rn compliance time excluding procedures: 17:24 Critical care time: Bedside Care: 25 minutes, Consultation: 10 minutes. Total time: 35 rn minutes Signatures: Dispatcher [employer] EDMS Barbara Kerr Roman, MD MD rn Prokisch, Amanda RN RN ap3 Yeimi Gore RN RN cm10 Yesi Correa RN kc6 Steff Gómez RN3 Corrections: (The following items were deleted from the chart) 14:51 14:51 Chest Single View+RAD.RAD.BRZ ordered. EDMS EDMS 14:51 14:51 Chest For PE Angio+CT.RAD.BRZ ordered. EDMS EDMS 18:15 17:25 rn bd
[2024-11-28] MEDS ORDERED: HEPARIN 5000 UNIT/ML 1 ML VIAL ONE (17:39)
[2024-11-28] MEDS ORDERED: METOPROLOL TARTRATE 5 MG/5 ML INJ IV ONE (17:40)
[2024-11-28] MEDS ORDERED: HEPARIN/D5W 25,000 UNIT/500 ML BAG IV ONE (17:40)
[2024-11-28 18:06] LABS: PT Prothrombin Time 16.2 SECONDS (9.4-12.5); PTT, Activated Partial Thromb 32.6 SECONDS (24.3-36.9); Protime INR 1.55
[2024-11-28] MEDS ORDERED: HEPARIN/D5W 25,000 UNIT/500 ML BAG IV PRN (18:08)
[2024-11-28] MEDS ORDERED: NITROGLYCERIN 0.4 MG/TAB SL PRN (18:08)
--- NOTE | 2024-11-28 18:28 | P.HP ---
Certification for Inpatient Patient admitted to: Inpatient With expected LOS: >2 Midnights Practitioner: I am a practitioner with admitting privileges, knowledge of patient current condition, hospital course, and medical plan of care. Services: Services provided to patient in accordance with Admission requirements found in Title 42 Section 412.3 of the Code of Federal Regulations Patient History Date of Service: 11/28/24 Reason for admission: Shortness of breath and palpitation History of Present Illness: 9-year-old woman with a history of congestive heart failure, DM type II on insulin therapy, history of factor V Leyden on Xarelto anticoagulation, history of CVAs in the past presented to the emergency department with a complaint of shortness of breath and palpitations of onset about 2 days ago. Patient reported she experiences a sense of doom yesterday. She also reports palpitation and lightheadedness and feeling faint today prompting the ED visit. She reports associated dull central chest pain radiating to the back and shortness of breath. Patient was evaluated in the emergency department initial troponin noted to be markedly elevated to 14,000, EKG demonstrated sinus tachycardia, no ST changes to suggest STEMI. CTA thorax done with did not show any pulm embolism or acute intrathoracic disease. Cardiology Dr. Reardon was contacted by the ED provider who recommended IV hydration followed by a dose of metoprolol and repeat EKG. Patient's heart rate slowed with IV hydration and metoprolol. Repeat EKG did not show ST elevation. Patient started on heparin drip admitted to the ICU per cardiology recommendation. Allergies morphine Allergy (Verified 10/08/22 23:52) Anaphylaxis Home Medications: Albuterol Sulfate [Albuterol Sulfate Hfa] 2 puff IN QID PRN 10/09/22 Carisoprodol [Soma] 350 mg PO TID 10/09/22 Hydrocodone Bit/Acetaminophen [Hydrocodon-Acetaminophn 10-325] 10 - 325 mg PO Q8HP PRN 10/09/22 Losartan Potassium [Cozaar*] 50 mg PO DAILY 10/09/22 Metformin HCl 1,000 mg PO BID 10/09/22 Rivaroxaban [Xarelto] 20 mg PO DAILY 10/09/22 Simvastatin 40 mg PO BEDTIME 10/09/22 Glimepiride 4 mg PO BID 05/28/23 ALPRAZolam [Xanax*] 1 tab PO BEDTIME 03/24/24 Fluticasone/Umeclidin/Vilanter [Trelegy Ellipta 100-62.5-25] 1 each IH DAILY 30 Days #30 aero 03/26/24 Benzonatate [Tessalon Perle*] 200 mg PO TID PRN 10 Days #30 cap 03/28/24 Insulin -Regular Human [Novolin -R*] See Protocol SQ TID 10 Days #3 ml 03/28/24 Mometasone/Formoterol [Dulera 200 Mcg/5 Mcg Inhaler] 2 puff IH BID inhaler 03/28/24 Pen Needle, Diabetic [1St Tier Unifine Pentips Plus] 1 each MC TID 10 Days #30 dis.ndl 03/28/24 levoFLOXacin [Levaquin*] 250 mg PO DAILY 5 Days #5 tab 03/28/24 predniSONE [Deltasone] 10 mg PO BID 5 Days #10 tab 03/28/24 - Past Medical/Surgical History Diabetic: Yes -: Type 2 Diabetes, Non-Insulin Dependent -: Factor V Leiden -: CVAs -: Hypertension -: Tubal Ligation -: Tonsillectomy -: tubal ligation Psychosocial/ Personal History: Patient lives at home alone. - Family History Mother -: Heart disease (Father), Cancer Notes: unknown kind Father -: Cancer Notes: unknown kind paternal grandmother -: Diabetes - Social History Alcohol use: No CD- Drugs: No Caffeine use: Yes Place of Residence: Home Review of Systems Other: Patient denied any fever, denied any nausea vomiting, denied any abdominal pain. She denied any diarrhea. Except as documented, all other systems reviewed and negative. Physical Examination - Physical Exam General: Alert, In no apparent distress, Oriented x3, Obese HEENT: Atraumatic, Mucous membr. moist/pink, EOMI, Sclerae nonicteric Neck: Supple, JVD not distended Respiratory: Clear to auscultation bilaterally, Normal air movement Cardiovascular: No edema, Regular rate/rhythm, Normal S1 S2 Capillary refill: <2 Seconds Gastrointestinal: Normal bowel sounds, Soft and benign, Non-distended, No tenderness Musculoskeletal: No swelling, No tenderness Integumentary: No rashes, No cyanosis Neurological: Normal speech, Normal strength at 5/5 x4 extr, Cranial nerves 3-12 intact Lymphatics: No axilla or inguinal lymphadenopathy - Studies Laboratory Data (last 24 hrs) 11/28/24 11/28/24 11/28/24 17:46 15:03 15:03 WBC 13.40 H Hgb 14.0 Hct 42.5 Plt Count 316 PT 16.2 H INR 1.55 APTT 32.6 Sodium 129 L Potassium 3.7 BUN 15 Creatinine 1.29 H Glucose 468 H* Assessment and Plan - Problems (Diagnosis) (1) NSTEMI (non-ST elevated myocardial infarction) Current Visit: Yes Status: Acute (2) Sinus tachycardia Current Visit: Yes Status: Acute (3) COPD (chronic obstructive pulmonary disease) Current Visit: Yes Status: Acute (4) Type 2 diabetes mellitus Current Visit: No Status: Acute Qualifiers: (5) Chronic anticoagulation Current Visit: No Status: Chronic (6) Factor V Leiden Current Visit: No Status: Chronic (7) Hypertension Current Visit: No Status: Chronic Qualifiers: - Plan NSTEMI Sinus Tachycardia Admit patient to the ICU Dr. Sorto's input appreciated. Loading dose of Brilinta 180 mg followed by 90 mg twice daily. Start aspirin Metoprolol as patient's BP will tolerate. Heparin drip Obtain echocardiogram Cardiology consulted, Dr. Reardon recommend cardiac catheterization in a.m.. NTG as needed Analgesics as needed Trend troponin Serial EKG. Factor V Leyden deficiency History of multiple CVAs Home Xarelto is on hold Patient started on heparin drip for NSTEMI. DM type II with hyperglycemia Hyponatremia Measured sodium level likely secondary to severe hyperglycemia. Insulin sliding scale. Start Lantus insulin Check hemoglobin A1c. COPD Without acute exacerbation Albuterol/ipratropium as needed Continue home bronchodilators. Essential hypertension Patient has soft blood pressure and in need of beta-valeria. Hold losartan Beta-valeria as tolerated Monitor BP. DVT prophylaxis: On heparin drip Advanced directive: Full code - Advance Directives Does patient have a Living Will: No Does patient have a Durable POA for Healthcare: No
[2024-11-28] MEDS ORDERED: GLUCAGON 1 MG/VIAL IM PRN ×2 (18:41→18:44)
[2024-11-28] MEDS ORDERED: D10W 125 ML IV PRN ×2 (18:41→18:44)
[2024-11-28] MEDS ORDERED: INSULIN REGULAR (HUMAN) 100 UNIT/ML ONE (18:49)
[2024-11-28 20:24] LABS: MPV 7.6 fL (7.6-11.3); Platelets 318 thou/uL (152-406)
[2024-11-28] MEDS: TICAGRELOR 90 MG TABLET PO ONE ×2 (20:26→20:46)
[2024-11-28] MEDS: INSULIN REGULAR (HUMAN) 100 UNIT/ML SQ SCH (20:28)
[2024-11-28] MEDS: ATORVASTATIN 80 MG TAB PO SCH (20:45)
[2024-11-28] MEDS: INSULIN GLARGINE 100 UNIT/ML SQ SCH (20:45)
[2024-11-28] MEDS: METOPROLOL TAR 25 MG TAB PO SCH (20:46)
[2024-11-28] MEDS: HYDROMORPHONE HCL 0.5 MG/0.5 ML INJ IV PRN (21:46)
[2024-11-29 06:56] LABS: Absolute Basophils 0.1 K/uL (0-0.5); Absolute Eosinophils 0.1 K/uL (0-0.5); Absolute Lymphocytes (CBC) 2.4 K/uL (0.7-4.9); Absolute Neutrophil 8.1 K/uL (1.8-8.0); Basophils % 1.1 % (0-1.3); Hematocrit 39.2 % (36.0-45.0); Hemoglobin 12.8 g/dL (12.0-15.0); Lymphocytes % 20.7 % (15.3-44.8); MCH 27.8 pg (27.0-35.0); MCHC 32.8 g/dL (32.0-36.0); MCV 84.7 fL (80-100); MPV 7.5 fL (7.6-11.3); Monocytes % 8.5 % (3.3-12.3); Neutrophils % 68.7 % (41.7-73.7); Platelets 308 thou/uL (152-406); RBC Red Blood Cell Count 4.62 M/uL (3.86-4.86); Red Cell Distribution Width 15.3 % (12.1-15.2)
[2024-11-29 07:21] LABS: Anion Gap 8.6 mEq/L (5.0-15.0); Magnesium 2.1 mg/dL (1.6-2.4); Phosphorus 2.5 mg/dL (2.5-4.9); Potassium 3.6 mEq/L (3.5-5.1); Thyroid Stimulating Hormone 0.451 uIU/mL (0.358-3.740)
[2024-11-29] MEDS: NA CHLORIDE 0.9% 500 ML ONE (08:07)
[2024-11-29] MEDS: TICAGRELOR 90 MG TABLET PO SCH (08:08)
[2024-11-29] MEDS: ASPIRIN EC 81 MG TAB PO SCH (08:08)
[2024-11-29] MEDS ORDERED: HEPARIN 10,000 UNIT/10 ML VIAL IV ONE (09:01)
[2024-11-29] MEDS ORDERED: HEPA 1000U/500MLS 2,000 UNIT/1,000 ML BAG IV ONE (09:01)
[2024-11-29] MEDS ORDERED: LIDOCAINE 1% 20 ML MDV ONE (09:01)
[2024-11-29] MEDS ORDERED: MIDAZOLAM HCL 2 MG/2 ML INJ ONE (09:01)
[2024-11-29] MEDS ORDERED: FLUMAZENIL 0.1 MG/ML (5 mL VIAL) IV ONE (09:02)
[2024-11-29] MEDS ORDERED: NALOXONE 0.4 MG/ML VIAL ONE (09:02)
[2024-11-29] MEDS ORDERED: ATROPINE SULF 1 MG/10 ML SYR IV ONE (09:02)
[2024-11-29] MEDS ORDERED: FENTANYL CITR 100 MCG/2 ML ONE (09:02)
[2024-11-29] MEDS ORDERED: CLOPIDOGREL 75 MG TABLET ONE (09:02)
[2024-11-29] MEDS ORDERED: HEPARIN 5000 UNIT/ML 1 ML VIAL ONE (09:02)
[2024-11-29] MEDS: ONDANSETRON 4 MG/2 ML VIAL IV PRN (11:03)
--- NOTE | 2024-11-29 13:24 | P.PN ---
Date of Service: 11/29/24 Subjective: seen after cath feels better having some slight discomfort at IV site, otherwise ok s/p PCI ROS: 10 point ROS as noted above, otherwise negative Physical Exam: GEN: Alert, NAD CV: Regular rate and rhythm, no edema Pulm: Nonlabored respirations on room air, clear bilaterally Neuro: Normal speech, normal affect Problem List: NSTEMI, now s/p PCI Factor V Leiden deficiency History of multiple CVAs IDDM2 with hyperglycemia Hyponatremia COPD, chronic Hypertension NSTEMI, now s/p PCI on admission, presents with palpitations, worsening shortness of breath for ~2 days associated with lightheadedness, chest pain. Admit to the ICU Troponin's trended up to 15k EKG noted Sinus Tachycardia s/p heparin drip Echo ordered to eval EF / stenosis Cardiology consulted, NPO for heart cath today continue metoprolol, asa 81mg, statin continue brilinta 90mg BID pain control Factor V Leyden deficiency History of multiple CVAs Home Xarelto is on hold for cath / for heparin drip IDDM2 with hyperglycemia Hyponatremia Measured sodium level likely secondary to severe hyperglycemia. Accu-cheks, SSI continue semglee 15u; titrate as needed Check A1c. COPD, chronic Continue home bronchodilators. Hypertension Hold losartan continue metoprolol VTE: heparin drip Code: Full Dispo: Home, possibly tomorrow Time Spent Managing Pts Care (In Minutes): 55
--- NOTE | 2024-11-29 13:24 | P.CNS ---
Date of Consult: 11/29/24 Chief Complaint: Shortness of breath and palpitation History of Present Illness: Patient with PMH of factor V leiden mutation, multiple strokes, presented with chest pain started two days ago, pressure in nature, no radiation assoicated with nausea and vomiting, no palpitations, no syncope. Allergies morphine Allergy (Verified 10/08/22 23:52) Anaphylaxis Home medications list reviewed: Yes Home Medications: Albuterol Sulfate [Albuterol Sulfate Hfa] 2 puff IN QID PRN 10/09/22 Carisoprodol [Soma] 350 mg PO TID 10/09/22 Hydrocodone Bit/Acetaminophen [Hydrocodon-Acetaminophn 10-325] 10 - 325 mg PO Q8HP PRN 10/09/22 Losartan Potassium [Cozaar*] 50 mg PO DAILY 10/09/22 Metformin HCl 1,000 mg PO BID 10/09/22 Rivaroxaban [Xarelto] 20 mg PO DAILY 10/09/22 Simvastatin 40 mg PO BEDTIME 10/09/22 Glimepiride 4 mg PO BID 05/28/23 ALPRAZolam [Xanax*] 1 tab PO BEDTIME 03/24/24 Fluticasone/Umeclidin/Vilanter [Trelegy Ellipta 100-62.5-25] 1 each IH DAILY 30 Days #30 aero 03/26/24 Benzonatate [Tessalon Perle*] 200 mg PO TID PRN 10 Days #30 cap 03/28/24 Insulin -Regular Human [Novolin -R*] See Protocol SQ TID 10 Days #3 ml 03/28/24 Mometasone/Formoterol [Dulera 200 Mcg/5 Mcg Inhaler] 2 puff IH BID inhaler 03/28/24 Pen Needle, Diabetic [1St Tier Unifine Pentips Plus] 1 each MC TID 10 Days #30 dis.ndl 03/28/24 levoFLOXacin [Levaquin*] 250 mg PO DAILY 5 Days #5 tab 03/28/24 predniSONE [Deltasone] 10 mg PO BID 5 Days #10 tab 03/28/24 - Past Medical/Surgical History Diabetic: Yes -: Type 2 Diabetes, Non-Insulin Dependent -: Factor V Leiden -: CVAs -: Hypertension -: Tubal Ligation -: Tonsillectomy -: tubal ligation Psychosocial/ Personal History: Patient lives at home alone. - Family History Mother Medical History: Heart disease (Father), Cancer Notes: unknown kind Father Medical History: Cancer Notes: unknown kind paternal grandmother Medical History: Diabetes - Social History Smoking Status: Current some day smoker Alcohol use: No CD- Drugs: No Caffeine use: Yes Place of Residence: Home Review of Systems 10-point ROS is otherwise unremarkable Physical Examination Temp Pulse Resp BP Pulse Ox 97.0 F 87 13 127/70 91 11/29/24 07:00 11/29/24 07:00 11/29/24 07:00 11/29/24 07:00 11/29/24 07:00 General: Alert, In no apparent distress HEENT: Atraumatic, PERRLA, Mucous membr. moist/pink, EOMI, Sclerae nonicteric Neck: Supple, 2+ carotid pulse no bruit, No LAD, Without JVD or thyroid abnormality Respiratory: Clear to auscultation bilaterally, Normal air movement Cardiovascular: Regular rate/rhythm, Normal S1 S2 Gastrointestinal: Normal bowel sounds, No tenderness Musculoskeletal: No tenderness Integumentary: No rashes Neurological: Normal gait, Normal speech, Normal tone, Normal affect Lymphatics: No axilla or inguinal lymphadenopathy Laboratory Data (last 24 hrs) 11/28/24 11/28/24 11/28/24 17:46 15:03 15:03 WBC 13.40 H Hgb 14.0 Hct 42.5 Plt Count 316 PT 16.2 H INR 1.55 APTT 32.6 Sodium 129 L Potassium 3.7 BUN 15 Creatinine 1.29 H Glucose 468 H* - Problems (1) NSTEMI (non-ST elevated myocardial infarction) Current Visit: Yes Status: Acute Plan: NPO for coronary angiogram ASA, Brilinta, heparin drip and statins get echo (2) Sinus tachycardia Current Visit: Yes Status: Acute Plan: continue metoprolol, continue to monitor on tele
[2024-11-29] MEDS: POTASSIUM 25 MEQ EFFERV TAB PO ONE (14:41)
[2024-11-29] MEDS: CLOPIDOGREL 75 MG TABLET PO ONE (14:41)
[2024-11-29] MEDS: HYDROCODONE/APAP 10/325 TAB PO PRN (21:11)
[2024-11-29] MEDS: Mupirocin NASAL 2 APPL/1 GM TUBE NAS SCH (21:12)
[2024-11-30 06:46] LABS: Absolute Basophils 0.1 K/uL (0-0.5); Absolute Eosinophils 0.1 K/uL (0-0.5); Absolute Lymphocytes (CBC) 2.5 K/uL (0.7-4.9); Absolute Monocytes 0.9 K/uL (0.1-1.3); Absolute Neutrophil 6.2 K/uL (1.8-8.0); Basophils % 0.8 % (0-1.3); Eosinophils % 1.4 % (0-4.4); Hematocrit 34.8 % (36.0-45.0); Hemoglobin 11.8 g/dL (12.0-15.0); Lymphocytes % 25.4 % (15.3-44.8); MCH 28.4 pg (27.0-35.0); MCV 83.4 fL (80-100); MPV 7.6 fL (7.6-11.3); Monocytes % 8.8 % (3.3-12.3); Neutrophils % 63.6 % (41.7-73.7); Platelets 306 thou/uL (152-406); RBC Red Blood Cell Count 4.17 M/uL (3.86-4.86); Red Cell Distribution Width 15.6 % (12.1-15.2)
[2024-11-30 07:03] LABS: Anion Gap 4.7 mEq/L (5.0-15.0); Magnesium 2.1 mg/dL (1.6-2.4); Potassium 3.7 mEq/L (3.5-5.1)
[2024-11-30] MEDS: POTASSIUM CL SA 10 MEQ TAB PO ONE (08:56)
[2024-11-30] MEDS: CLOPIDOGREL 75 MG TABLET PO SCH (08:56)
--- NOTE | 2024-11-30 08:57 | P.PN ---
Date of Service: 11/30/24 Subjective: now reporting dysuria for ~1 day otherwise doing okay breathing okay on room air afebrile ROS: 10 point ROS as noted above, otherwise negative Physical Exam: GEN: Alert, NAD CV: Regular rate and rhythm, no edema Pulm: Nonlabored respirations on room air, clear bilaterally Neuro: Normal speech, normal affect Problem List: CAD, s/p RCA PCI (11/29) UTI , present on admission NSTEMI Factor V Leiden deficiency History of multiple CVAs IDDM2 with hyperglycemia Hyponatremia COPD, chronic Hypertension CAD, s/p RCA PCI (11/29) NSTEMI on admission, presents with palpitations, worsening shortness of breath for ~2 days associated with lightheadedness, chest pain. Troponin's trended up to 15k EKG noted Sinus Tachycardia s/p heparin drip Echo (11/29): 45-50% EF, grade 1 diastolic dysfunction, mild MR Cardiology consulted s/p LHC with RCA PCI (11/29); Official Report pending continue metoprolol, asa 81mg, statin pain control Dysuria 11/30 now reporting dysuria for ~1 day / on admission, but states was focused on chest pain so forgot to mention it Obtain urine culture, check UA Start empiric rocephin (11/30-) reports h/o UTIs at risk with uncontrolled DM2 Factor V Leyden deficiency History of multiple CVAs restart home xarelto IDDM2 with hyperglycemia Hyponatremia Measured sodium level likely secondary to severe hyperglycemia. Accu-cheks, SSI continue semglee 15u; titrate as needed a1c: 12.9 (11/29) Will need insulin script on discharge; patient agreeable. COPD, chronic Continue home bronchodilators. Hypertension Hold losartan continue metoprolol VTE: xarelto Code: Full Dispo: Home, ~1-2 days pending urine culture Time Spent Managing Pts Care (In Minutes): 55
[2024-11-30 10:24] LABS: Specific Gravity > 1.030 (1.005-1.030); Sqamous Epithelial <5 /HPF (None Seen); Urine Bacteria Loaded /HPF (<20); Urine Bilirubin NEGATIVE (Negative); Urine Blood Negative (Negative); Urine Clarity Extremely Turbid (Clear); Urine Color Yellow (Yellow); Urine Crystals Unidentified Few /HPF (None Seen); Urine Culture Reflex Order REFLEXED; Urine Glucose 3+ (Negative); Urine Ketones NEGATIVE (Negative); Urine Microscopic Reflex YN ORDER UMIC; Urine Mucus 4+ /HPF (None Seen); Urine Nitrite NEGATIVE (Negative); Urine Protein 1+ (Negative); Urine Urobilinogen Normal (Normal); Urine WBC 20-50 /HPF (<5); Urine WBC Clump Occasional /HPF (None Seen); Urine pH 5.5 (5.0-7.0)
--- NOTE | 2024-11-30 11:19 | P.PN ---
Subjective Date of Service: 11/30/24 Chief Complaint: Shortness of breath and palpitation Subjective: No new changes, No C/O voiced, Tolerating diet, Ambulating, Improving Review of Systems 10-point ROS is otherwise unremarkable Physical Examination - Vital Signs Temperature: 98.1 F Blood Pressure: 100/64 Pulse: 81 Respirations: 18 Pulse Ox (%): 94 - Physical Exam General: Alert, In no apparent distress HEENT: Atraumatic, PERRLA, EOMI Neck: Supple, JVD not distended Respiratory: Clear to auscultation bilaterally, Normal air movement Cardiovascular: Regular rate/rhythm, Normal S1 S2 Gastrointestinal: Normal bowel sounds, No tenderness Musculoskeletal: No tenderness Integumentary: No rashes Neurological: Normal speech, Normal tone, Normal affect Lymphatics: No axilla or inguinal lymphadenopathy - Studies Medications List Reviewed: Yes Assessment And Plan - Current Problems (Diagnosis) (1) NSTEMI (non-ST elevated myocardial infarction) Current Visit: Yes Status: Acute Plan: Coronary angiogram done and PCI of RCA done. ASA, Plavix Lipitor 40 mg daily continue lopressor 25 mg po BID (2) Sinus tachycardia Current Visit: Yes Status: Acute Plan: continue metoprolol, continue to monitor on tele
--- NOTE | 2024-11-30 11:37 | ECHO ---
HEIGHT: 5 ft 2 in WEIGHT: 232 lb 0 oz DATE OF STUDY: 11/29/[address]: Demian Santos MD 2-DIMENSIONAL: YES M.MODE: YES DOPPLER: YES COLOR FLOW: YES TDS: NO PORTABLE: YES DEFINITY: NO BUBBLE STUDY: NO DIAGNOSIS: NSTEMI CARDIAC HISTORY: CATHERIZATION:YES SURGERY: NO PROSTHETIC VALVE: NO PACEMAKER: NO MEASUREMENTS (cm) DIASTOLIC (NORMALS) SYSTOLIC (NORMALS) IVSd 1.2 (0.6-1.2) LA Diam 3.2 (1.9-4.0) LVEF 45-50% LVIDd 5.3 (3.5-5.7) LVIDs 4.0 (2.0-3.5) %FS 24% LVPWd 1.2 (0.6-1.2) Ao Diam 2.5 (2.0-3.7) 2 DIMENSIONAL ASSESSMENT: RIGHT ATRIUM: NORMAL LEFT ATRIUM: NORMAL RIGHT VENTRICLE: NORMAL LEFT VENTRICLE: NORMAL TRICUSPID VALVE: TRACE TRICUSPID REGURGITATION MITRAL VALVE: MILD MITRAL REGURGITATION PULMONIC VALVE: NORMAL AORTIC VALVE: NORMAL PERICARDIAL EFFUSION: NONE AORTIC ROOT: NORMAL LEFT VENTRICULAR WALL MOTION: MILD INFERIOR WALL HYPOKINESIS. DOPPLER/COLOR FLOW: GRADE I DIASTOLIC DYSFUNCTION. COMMENTS: 1. MILDY REDUCED LEFT VENTRICULAR SYSTOLIC FUNCTION. LEFT VENTRICULAR EJECTION FRACTION 45-50%. MILD INFERIOR WALL HYPOKINESIS. 2. GRADE I DIASTOLIC DYSFUNCTION. 3. MILD MITRAL REGURGITATION. TECHNOLOGIST: KRANTHI GOMEZ
[2024-11-30] MEDS: CEFTRIAXONE 1,000 MG in NA CHLORIDE 0.9% 50 ML IVPB SCH (12:13)
--- NOTE | 2024-11-30 20:44 | OP ---
Date of Procedure: 11/29/2024 Surgeon: Gael Reardon Procedures Performed: 1.Left heart catheterization. 2.Selective coronary angiogram. 3.PCI of the RCA with Synergy 3.5 x 12 overlapped with 3.0 x 48, and overlapped with 3.0 x 16 mm shira g-eluting stents. Indication For Procedure: [id number] MT. Complications: None. Estimated Blood Loss: Less than 50 cc. Access: Right radial, closed by TR band. Sedation Time: 40 minutes with 2 of Versed and 50 of fentanyl. Description Of Procedure: After risks, and benefits, and alternatives were explained to the patient, patient agreed to proceed with the procedure and signed informed consent. The patient was brought b [facility] to the greenhouse laborer, prepped and draped in a sterile fashion. Time-out was performed. Sedation was administered. Next, right radial access was obtained using ultrasound-guided micropuncture technique . The Mina 4.0 catheter was advanced over a J-wire to the LV cavity. LVEDP was obtained. Pullback did not show any gradient. Same catheter was used for selective coronary angiogram and soon after t hat catheter was exchanged for a JR4 guide. The heparin was administered. ACT was therapeutic. Run through wire was passed across the lesion, pre-dilated the lesion with an NC 2.5 and 3.0 mm balloon. Next, Synergy 3.5 x 12 overlapped with 3.0 x 48 and 3.0 x 16 mm drug-eluting stent was placed across the proximal to mid RCA. Those stents were postdilated with NC 3.5 and 4.0 mm balloons. The final angiogram shows AZIZA-3 flow. Wire was removed. Catheter was removed over a J-wire. Sheath was garland kaiden. TR band was applied. Hemostasis was achieved and the patient was moved back to Recovery in sta ble condition. Findings: 1.Left main normal. 2.LAD; mid 30% disease, then mild luminal irregularities. 3.Left circ; mild luminal irregularities. 4.RCA; proximal 100% occluded, most likely subacute, status post PCI as above. Mid to distal mild l uminal irregularities. Assessment And Plan: Subacute to 100% occluded proximal RCA, status post PCI with Synergy 3.5 x 12 o verlapped with 3.0 x 48, and 3.0 x 16 mm drug-eluting stent. Plan is aspirin 81 mg daily for life. Brilinta 180 x1 was given in the greenhouse laborer. Continue Plavix 75 mg daily for 12 months. Continue aggressive medical treatment for CAD. PER/REYNALDO Voice ID: [id number] Report ID: [id number]
[2024-11-30] MEDS: INSULIN GLARGINE 100 UNIT/ML SQ ONE (21:35)
[2024-11-30] MEDS: ALPRAZOLAM 1 MG TABLET PO PRN (23:48)
[2024-12-01 05:16] LABS: MPV 7.9 fL (7.6-11.3); Platelets 260 thou/uL (152-406)
--- NOTE | 2024-12-01 08:58 | P.PN ---
Date of Service: 12/01/24 Subjective: denies chest pain or SOB dysuria improving no events overnight afebrile ROS: 10 point ROS as noted above, otherwise negative Physical Exam: GEN: Alert, NAD CV: Regular rate and rhythm, no edema Pulm: Nonlabored respirations on room air, clear bilaterally Neuro: Normal speech, normal affect Problem List: CAD, s/p RCA PCI (11/29) UTI , present on admission NSTEMI Factor V Leiden deficiency History of multiple CVAs IDDM2 with hyperglycemia Hyponatremia COPD, chronic Hypertension CAD, s/p RCA PCI (11/29) NSTEMI on admission, presents with palpitations, worsening shortness of breath for ~2 days associated with lightheadedness, chest pain. Troponin's trended up to 15k EKG noted Sinus Tachycardia s/p heparin drip Echo (11/29): 45-50% EF, grade 1 diastolic dysfunction, mild MR Cardiology consulted s/p LHC (11/29). subacute to 100% occluded proximal RCA s/p PCI also noted mid LAD stenosis 30% with mild luminal irregularities. continue metoprolol, asa 81mg, statin, plavix pain control UTI , present on admission 11/30 now reporting dysuria for ~1 day / on admission, but states was focused on chest pain so forgot to mention it urine cx (11/29): 4+ GNR continue empiric rocephin (11/30-) reports h/o UTIs at risk with uncontrolled DM2 Factor V Leyden deficiency History of multiple CVAs continue home xarelto IDDM2 with hyperglycemia Hyponatremia Measured sodium level likely secondary to severe hyperglycemia. Accu-cheks, SSI continue semglee; increased to 30u 11/30 a1c: 12.9 (11/29) Will need insulin script on discharge; patient agreeable. COPD, chronic Continue home bronchodilators. Hypertension Hold losartan continue metoprolol VTE: xarelto Code: Full Dispo: Home, ~1 day pending urine culture, better BS control Time Spent Managing Pts Care (In Minutes): 55
--- NOTE | 2024-12-01 09:36 | P.PN ---
Subjective Date of Service: 12/01/24 Chief Complaint: Shortness of breath and palpitation Subjective: No new changes, No C/O voiced, Tolerating diet, Ambulating, Improving Review of Systems 10-point ROS is otherwise unremarkable Physical Examination - Vital Signs Temperature: 97.2 F Blood Pressure: 119/67 Pulse: 87 Respirations: 18 Pulse Ox (%): 92 - Physical Exam General: Alert, In no apparent distress HEENT: Atraumatic, PERRLA, EOMI Neck: Supple, JVD not distended Respiratory: Clear to auscultation bilaterally, Normal air movement Cardiovascular: Regular rate/rhythm, Normal S1 S2 Gastrointestinal: Normal bowel sounds, No tenderness Musculoskeletal: No tenderness Integumentary: No rashes Neurological: Normal speech, Normal tone, Normal affect Lymphatics: No axilla or inguinal lymphadenopathy - Studies Medications List Reviewed: Yes Assessment And Plan - Current Problems (Diagnosis) (1) NSTEMI (non-ST elevated myocardial infarction) Current Visit: Yes Status: Acute Plan: Coronary angiogram done and PCI of RCA done. ASA, Plavix Lipitor 40 mg daily change lopressor to Toprol XL to 25 mg daily. Add Lisinopril 2.5 mg daily Patient echo shows mild reduced LV systolic function with inferior wall hypokinesis. (2) Sinus tachycardia Current Visit: Yes Status: Acute Plan: continue metoprolol, continue to monitor on tele
[2024-12-01] MEDS: RIVAROXABAN 20 MG TABLET PO SCH (10:04)
--- NOTE | 2024-12-01 12:01 | EKG ---
Test Date: 2024-11-28 Test Time: 17:58:29 Strategy Director: ALP MEASUREMENT RESULTS: Intervals: Rate: 72 DE: 168 QRSD: 100 QT: 452 QTc: 494 [place]: P: 64 DE: 168 QRS: 44 T: 35 INTERPRETIVE STATEMENTS: Normal sinus rhythm Normal ECG Compared to ECG 03/24/2024 01:35:44 Sinus tachycardia no longer present Electronically Signed On 12-01-24 11:59:14 CEMENT FINISHER APPRENTICE by Gael Reardon
--- NOTE | 2024-12-01 12:03 | EKG ---
Test Date: 2024-11-28 Test Time: 14:48:24 Corn Crop Supervisor: CHINO MEASUREMENT RESULTS: Intervals: Rate: 121 WA: 146 QRSD: 102 QT: 328 QTc: 465 [place]: P: 82 WA: 146 QRS: 66 T: 89 INTERPRETIVE STATEMENTS: Sinus tachycardia Otherwise normal ECG Compared to ECG 03/24/2024 01:35:44 No significant changes Electronically Signed On 12-01-24 12:00:30 TEST AND TURN UP TECHNICIAN by Gael Reardon
[2024-12-01] MEDS: INSULIN GLARGINE 100 UNIT/ML SQ SCH (20:43)
[2024-12-01] MEDS ORDERED: INSULIN GLARGINE 100 UNIT/ML SQ SCH (21:00)
[2024-12-02 01:38] VITALS: BMI 42.4
[2024-12-02 08:13] LABS: Anion Gap 8.2 mEq/L (5.0-15.0); Magnesium 1.8 mg/dL (1.6-2.4); Potassium 4.2 mEq/L (3.5-5.1)
[2024-12-02 08:38] VITALS: BP 121/83
--- NOTE | 2024-12-02 09:18 | P.DS ---
Admission Date: 11/28/24 Discharge Date: 12/02/24 Disposition: ROUTINE DISCHARGE Discharge Condition: GOOD Reason for Admission: Shortness of breath and palpitation Consultations: Cardiology - Dr. Reardon Brief History of Present Illness: 59yo F, PMH: congestive heart failure, DM type II on insulin therapy, history of factor V Leyden on Xarelto anticoagulation, history of CVAs in the past Patient presented to the emergency department with a complaint of shortness of breath and palpitations of onset about 2 days ago. Patient reported she experiences a sense of doom yesterday. She also reports palpitation and lightheadedness and feeling faint today prompting the ED visit. She reports associated dull central chest pain radiating to the back and shortness of breath. Patient was evaluated in the emergency department initial troponin noted to be markedly elevated to 14,000, EKG demonstrated sinus tachycardia, no ST changes to suggest STEMI. CTA thorax done with did not show any pulm embolism or acute intrathoracic disease. Cardiology Dr. Reardon was contacted by the ED provider who recommended IV hydration followed by a dose of metoprolol and repeat EKG. Patient's heart rate slowed with IV hydration and metoprolol. Repeat EKG did not show ST elevation. Patient started on heparin drip admitted to the ICU per cardiology recommendation. Hospital Course: Problem List: CAD, s/p RCA PCI (11/29) UTI , POA NSTEMI Factor V Leiden deficiency History of multiple CVAs IDDM2 with hyperglycemia Hyponatremia, improved COPD, chronic Hypertension Physician discharge instructions: Patient presented with palpitations, worsening shortness of breath for ~2 days associated with lightheadedness, chest pain. Troponin's significantly trended up to 15k. She was evaluated by Dr. Reardon (cardio) and underwent left heart catheterization on 11/29 which noted RCA with proximal 100% occlusion s/p PCI (full report below). Patient was monitored post-operatively, feeling better, chest pain improved, breathing more comfortably on room air, and was deemed stable for discharge. Started on plavix in addition to daily 81mg aspirin, and her xarelto. Advised patient to follow up with cardiology in next 2-4 weeks for further management. During her hospitalization, she also reported dealing with some dysuria since admission. She otherwise reported feeling fine, remained afebrile without leukocytosis for > 24 hours. Urine culture ended up growing Klebsiella Pneumoniae, only resistant to ampicillin, intermediate resistance to nitrofurantoin. She received ~3 days of IV rocephin and is to complete 4 more days of oral ciprofloxacin on discharge for total of 1 week antibiotics. She was noted to have uncontrolled hyperglycemia this hospitalization with POC glucose in 350-400s. A1c this hospitalization: 12.9. Discussed with patient she would benefit from insulin to better help control her blood sugars to which she was agreeable too. New prescription for Insulin 40 units daily at nighttime. Check glucose levels around the same time each morning, and before and after meals. Keep daily diary of glucose readings to take to follow up appointments. If fasting glucose > 200, increase insulin by 4 units, every 3 days Medications: Plavix 75 mg daily for 12 months Metoprolol 25 mg twice daily Aspirin 81 mg daily Atorvastatin 40 mg daily Insulin 40 units at bedtime continue other home medications as previously prescribed blood pressure was low-normal off her usual anti-hypertensives. Stop triamterene-HCTZ and losartan. Start 2.5mg daily lisinopril and monitor blood pressure daily. Follow up: PCP 3-5 days Cardiology 2-4 weeks Please call to schedule / confirm appointments Left heart cath operative report: 1. Left main normal. 2. LAD; mid 30% disease, then mild luminal irregularities. 3. Left circ; mild luminal irregularities 4. RCA; proximal 100% occluded, most likely subacute, status post PCI as above. Mid to distal mild luminal irregularities. Subacute to 100% occluded proximal RCA, status post PCI with Synergy 3.5 x 12 overlapped with 3.0 x 48, and 3.0 x 16 mm drug-eluting stent Physical Exam: GEN: Alert, NAD CV: Regular rate and rhythm, no edema Pulm: Nonlabored respirations on room air, clear bilaterally Neuro: Normal speech, normal affect Vital Signs/Physical Exam: Temp Pulse Resp BP Pulse Ox 97.3 F 87 18 121/83 93 12/02/24 04:00 12/02/24 08:37 12/02/24 04:00 12/02/24 08:37 12/02/24 04:00 Laboratory Data at Discharge: WBC 9.70 thou/uL (4.3-10.9) 11/30/24 06:22 Hgb 11.8 g/dL (12.0-15.0) L 11/30/24 06:22 Hct 34.8 % (36.0-45.0) L 11/30/24 06:22 Plt Count 260 thou/uL (152-406) 12/01/24 05:03 PT 16.2 SECONDS (9.4-12.5) H 11/28/24 17:46 INR 1.55 11/28/24 17:46 APTT Cancelled 11/29/24 10:35 Sodium 137 mEq/L (136-145) 12/02/24 07:44 Potassium 4.2 mEq/L (3.5-5.1) 12/02/24 07:44 BUN 13 mg/dL (7-18) 12/02/24 07:44 Creatinine 0.83 mg/dL (0.55-1.02) 12/02/24 07:44 Glucose 314 mg/dL (74-106) H 12/02/24 07:44 Phosphorus 2.5 mg/dL (2.5-4.9) 11/29/24 06:35 Magnesium 1.8 mg/dL (1.6-2.4) 12/02/24 07:44 Triglycerides 190 mg/dL (<150) H 11/28/24 20:05 Cholesterol 178 mg/dL (<200) 11/28/24 20:05 HDL Cholesterol 34 mg/dL (40-60) L 11/28/24 20:05 Cholesterol/HDL Ratio 5.24 11/28/24 20:05 Home Medications: Carisoprodol [Soma] 350 mg PO TID 10/09/22 Hydrocodone Bit/Acetaminophen [Hydrocodon-Acetaminophn 10-325] 10 - 325 mg PO Q8HP PRN 10/09/22 Metformin HCl 1,000 mg PO BID 10/09/22 Rivaroxaban [Xarelto] 20 mg PO DAILY 10/09/22 Fluticasone/Umeclidin/Vilanter [Trelegy Ellipta 100-62.5-25] 1 each IH DAILY 30 Days #30 aero 03/26/24 Mometasone/Formoterol [Dulera 200 Mcg/5 Mcg Inhaler] 2 puff IH BID inhaler 03/28/24 Esomeprazole Magnesium 40 mg PO DAILY 11/29/24 Furosemide 40 mg PO DAILY 11/29/24 Ondansetron [Zofran (Odt)*] 4 mg PO Q8H PRN 11/29/24 ALPRAZolam [Xanax*] 1 mg PO BEDTIME 11/30/24 Aspirin [Aspirin EC 81 MG] 81 mg PO DAILY 30 Days #30 tab 12/02/24 Atorvastatin Calcium [Lipitor] 80 mg PO BEDTIME 30 Days #30 tab 12/02/24 Ciprofloxacin HCl [Cipro] 500 mg PO BID 4 Days #8 tab 12/02/24 Clopidogrel Bisulfate [Plavix*] 75 mg PO DAILY 30 Days #30 tab 12/02/24 Insulin Glargine,Hum.rec.anlog [Lantus Solostar] 40 unit SQ BEDTIME 30 Days #1200 unit 12/02/24 Lisinopril [Zestril] 2.5 mg PO DAILY 30 Days #30 tab 12/02/24 Metoprolol Tartrate [Lopressor*] 25 mg PO BID 30 Days #60 tab 12/02/24 New Medications: Aspirin [Aspirin EC 81 MG] 81 mg PO DAILY 30 Days #30 tab Ciprofloxacin HCl [Cipro] 500 mg PO BID 4 Days #8 tab Insulin Glargine,Hum.rec.anlog [Lantus Solostar] 40 unit SQ BEDTIME 30 Days #1200 unit Atorvastatin Calcium [Lipitor] 80 mg PO BEDTIME 30 Days #30 tab Metoprolol Tartrate [Lopressor*] 25 mg PO BID 30 Days #60 tab Clopidogrel Bisulfate [Plavix*] 75 mg PO DAILY 30 Days #30 tab Lisinopril [Zestril] 2.5 mg PO DAILY 30 Days #30 tab Physician Discharge Instructions: Physician discharge instructions: Patient presented with palpitations, worsening shortness of breath for ~2 days associated with lightheadedness, chest pain. Troponin's significantly trended up to 15k. She was evaluated by Dr. Reardon (cardio) and underwent left heart catheterization on 11/29 which noted RCA with proximal 100% occlusion s/p PCI (full report below). Patient was monitored post-operatively, feeling better, chest pain improved, breathing more comfortably on room air, and was deemed stable for discharge. Started on plavix in addition to daily 81mg aspirin, and her xarelto. Advised patient to follow up with cardiology in next 2-4 weeks for further management. During her hospitalization, she also reported dealing with some dysuria since admission. She otherwise reported feeling fine, remained afebrile without leukocytosis for > 24 hours. Urine culture ended up growing Klebsiella Pneumoniae, only resistant to ampicillin, intermediate resistance to nitrofurantoin. She received ~3 days of IV rocephin and is to complete 4 more days of oral ciprofloxacin on discharge for total of 1 week antibiotics. She was noted to have uncontrolled hyperglycemia this hospitalization with POC glucose in 350-400s. A1c this hospitalization: 12.9. Discussed with patient she would benefit from insulin to better help control her blood sugars to which she was agreeable too. New prescription for Insulin 40 units daily at nighttime. Check glucose levels around the same time each morning, and before and after meals. Keep daily diary of glucose readings to take to follow up appointments. If fasting glucose > 200, increase insulin by 4 units, every 3 days Medications: Plavix 75 mg daily for 12 months Metoprolol 25 mg twice daily Aspirin 81 mg daily Atorvastatin 40 mg daily Insulin 40 units at bedtime continue other home medications as previously prescribed blood pressure was low-normal off her usual anti-hypertensives. Stop triamterene-HCTZ and losartan. Start 2.5mg daily lisinopril and monitor blood pressure daily. Follow up: PCP 3-5 days Cardiology 2-4 weeks Please call to schedule / confirm appointments Left heart cath operative report: 1. Left main normal. 2. LAD; mid 30% disease, then mild luminal irregularities. 3. Left circ; mild luminal irregularities 4. RCA; proximal 100% occluded, most likely subacute, status post PCI as above. Mid to distal mild luminal irregularities. Subacute to 100% occluded proximal RCA, status post PCI with Synergy 3.5 x 12 overlapped with 3.0 x 48, and 3.0 x 16 mm drug-eluting stent Followup: Gael Reardon MD [ACTIVE - CAN ADMIT] - 1-2 Weeks Rich Dunbar MD [Primary Care Provider] - 1 Week Time spent managing pt's care (in minutes): 45
[2024-12-02] MEDS: MAGNESIUM SULFATE 1 gm IVPB 1 GM/100 ML BAG IV ONE (09:30)
[2024-12-02 09:36] LABS: Absolute Basophils 0.1 K/uL (0-0.5); Absolute Eosinophils 0.3 K/uL (0-0.5); Absolute Lymphocytes (CBC) 2.3 K/uL (0.7-4.9); Absolute Monocytes 0.7 K/uL (0.1-1.3); Basophils % 1.1 % (0-1.3); Eosinophils % 2.9 % (0-4.4); Hematocrit 35.8 % (36.0-45.0); Lymphocytes % 24.4 % (15.3-44.8); MCH 28.4 pg (27.0-35.0); MCHC 33.7 g/dL (32.0-36.0); MCV 84.3 fL (80-100); MPV 7.9 fL (7.6-11.3); Monocytes % 7.4 % (3.3-12.3); Neutrophils % 64.2 % (41.7-73.7); Platelets 315 thou/uL (152-406); RBC Red Blood Cell Count 4.24 M/uL (3.86-4.86); Red Cell Distribution Width 15.1 % (12.1-15.2)
[2024-12-02 09:45] VITALS: TEMP 98.6
[2024-12-02 10:30] VITALS: O2SAT 95
== END 2024-12-02 11:15 | disposition home or self-care (01) | DRG 322 ==
LOC: ER 14:38 → ERHOLD 18:04 → 3RD-ICU 18:45 → 4TH 11-29 23:02
PROVIDERS: ADMIT Internal Medicine; ATTEND Hospitalist
PROC: 027034Z Dilation of Coronary Artery, One Artery with Drug-eluting Intraluminal Device, Percutaneous Approach (ICD-10-PCS; principal; 2024-11-29)
PROC: 02703EZ Dilation of Coronary Artery, One Artery with Two Intraluminal Devices, Percutaneous Approach (ICD-10-PCS; 2024-11-29)
PROC: 4A023N7 Measurement of Cardiac Sampling and Pressure, Left Heart, Percutaneous Approach (ICD-10-PCS; 2024-11-29)
PROC: B2111ZZ Fluoroscopy of Multiple Coronary Arteries using Low Osmolar Contrast (ICD-10-PCS; 2024-11-29)
DX: I21.4 Non-ST elevation (NSTEMI) myocardial infarction (principal); D68.51 Activated protein C resistance; E87.1 Hypo-osmolality and hyponatremia; N39.0 Urinary tract infection, site not specified; I10 Essential (primary) hypertension; E11.65 Type 2 diabetes mellitus with hyperglycemia; J44.9 Chronic obstructive pulmonary disease, unspecified; I25.10 Atherosclerotic heart disease of native coronary artery without angina pectoris; F17.210 Nicotine dependence, cigarettes, uncomplicated; R00.0 Tachycardia, unspecified; Z60.2 Problems related to living alone; Z86.73 Personal history of transient ischemic attack (TIA), and cerebral infarction without residual deficits; Z88.5 Allergy status to narcotic agent; Z98.51 Tubal ligation status; Z79.4 Long term (current) use of insulin; Z79.01 Long term (current) use of anticoagulants; Z79.84 Long term (current) use of oral hypoglycemic drugs; Z79.52 Long term (current) use of systemic steroids; Z79.899 Other long term (current) drug therapy
CPT/HCPCS: 36415; 71045; 71275; 76937; 80048; 80061; 81001; 82947; 83036; 83735; 83880; 84100; 84443; 84484; 85025; 85049; 85347; 85610; 85730; 87077; 87086; 87088; 87186; 92928; 93005; 93306; 93458; 94760; 96361; 96365; 96372; 96375; 99152; 99153; 99285; C1725; C1893; J0461; J0696; J1171; J1644; J2003; J2250; J2310; J2405; J3010; J3475; J7040; Q9967

== ENCOUNTER 2024-12-23 19:12 | Inpatient (IN) | payer OTHER ==
--- NOTE | 2024-12-23 20:30 | RAD REPORT ---
Procedure: Chest Single View HISTORY: Chest pain COMPARISON: November 2024 FINDINGS: The patient's known right lower lobe nodules not clearly visualized on this exam Left lung appears clear. No significant pleural effusion noted. The heart is normal size.
[2024-12-23] MEDS ORDERED: ALBUTEROL 2.5 MG/3 ML NEB SOL ONE (21:01)
[2024-12-23] MEDS ORDERED: IPRATROPIUM BROM 0.5MG/2.5ML ONE (21:02)
[2024-12-23] MEDS ORDERED: METHYLPREDNISOLONE 125 MG INJ ONE (21:31)
[2024-12-23] MEDS ORDERED: FENTANYL CITR 100 MCG/2 ML ONE (21:32)
[2024-12-23 21:42] LABS: Absolute Basophils 0.1 K/uL (0-0.5); Absolute Eosinophils 0.4 K/uL (0-0.5); Absolute Lymphocytes (CBC) 2.5 K/uL (0.7-4.9); Absolute Monocytes 0.8 K/uL (0.1-1.3); Absolute Neutrophil 7.1 K/uL (1.8-8.0); Basophils % 1.1 % (0-1.3); Eosinophils % 3.6 % (0-4.4); Hematocrit 39.1 % (36.0-45.0); Hemoglobin 13.6 g/dL (12.0-15.0); MCH 29.2 pg (27.0-35.0); MCHC 34.7 g/dL (32.0-36.0); MCV 84.2 fL (80-100); MPV 7.8 fL (7.6-11.3); Monocytes % 7.1 % (3.3-12.3); Neutrophils % 65.2 % (41.7-73.7); Nucleated Red Blood Cells % 0.1 % (0-0); Platelets 230 thou/uL (152-406); RBC Red Blood Cell Count 4.64 M/uL (3.86-4.86); Red Cell Distribution Width 15.8 % (12.1-15.2)
[2024-12-23 21:46] LABS: PT Prothrombin Time 15.5 SECONDS (9.4-12.5); Protime INR 1.48
[2024-12-23 21:58] LABS: SARS-CoV-2 Antigen CONTROL BLUE LINE VIS/BG OK; SARS-CoV-2 Antigen Rapid Res Negative (Negative)
[2024-12-23 22:00] LABS: ALT/SGPT 24 U/L (13-56); AST/SGOT 13 U/L (15-37); Albumin 2.9 g/dL (3.4-5.0); Albumin/Globulin Ratio 0.6 (1.1-1.8); Alkaline Phosphatase 130 U/L (45-117); Anion Gap 7.9 mEq/L (5.0-15.0); BUN Blood Urea Nitrogen 15 mg/dL (7-18); Bicarbonate 26 mEq/L (21-32); Bilirubin Total 0.2 mg/dL (0.2-1.0); Globulin 4.5 g/dL (2.3-3.5); Glomerular Filtration Rate 76 ml/min (=/>90); Glucose Level 158 mg/dL (74-106); Magnesium 2.1 mg/dL (1.6-2.4); NT PRO-BNP 1357 pg/mL (<125); Potassium 3.9 mEq/L (3.5-5.1); Protein, Total 7.4 g/dL (6.4-8.2); Sodium Level 139 mEq/L (136-145); Troponin High Sensitivity 18.2 pg/mL (<58.9)
[2024-12-23 22:03] LABS: Bilirubin Direct < 0.2 mg/dL (0-0.2)
[2024-12-24] MEDS ORDERED: FENTANYL CITR 100 MCG/2 ML ONE (00:09)
--- NOTE | 2024-12-24 01:16 | RAD REPORT ---
PROCEDURE: CT Angiography Chest, Abdomen and Pelvis With Intravenous Contrast CLINICAL INDICATION: The patient is 59 years old and is Female; chest pain, back pain TECHNIQUE: Axial computed tomographic angiography images of the chest, abdomen and pelvis with intravenous contr ast. This CT exam was performed using one or more of the following dose reduction techniques: automated exposure control, adjustment of the mA and/or kV according to patient size, and/or use of i terative reconstruction technique. 3D and MIP reconstructed images were created and reviewed. DLP: 1655 mGy*cm COMPARISON: Chest radiograph of the same day. FINDINGS: CHEST: AORTA: No acute abnormality. No aneurysm. No dissection. Atherosclerotic disease. PULMONARY ARTERIES: Unremarkable as visualized. No pulmonary embolism is identified. GREAT VESSELS OF AORTIC ARCH: No acute findings. No dissection. No arterial occlusion or signif icant stenosis. LUNGS: 1.6 cm right lower lobe pulmonary nodule. No consolidation. PLEURAL SPACE: Unremarkable. No significant effusion. No pneumothorax. HEART: Unremarkable. No cardiomegaly. No significant pericardial effusion. ABDOMEN: LIVER: Hepatic steatosis. GALLBLADDER AND BILE DUCTS: Unremarkable. No calcified stones. No ductal dilation. PANCREAS: Unremarkable. No ductal dilation. No mass. SPLEEN: Splenomegaly. ADRENALS: Unremarkable. No mass. KIDNEYS AND URETERS: Multiple bilateral renal cysts measuring up to 1.9 cm on the right. No hydronephrosis. No solid mass. STOMACH AND BOWEL: Unremarkable. No obstruction. No mucosal thickening. PELVIS: APPENDIX: The appendix is seen and is within normal limits. BLADDER: Unremarkable. No mass. REPRODUCTIVE: Unremarkable as visualized. CHEST, ABDOMEN and PELVIS: INTRAPERITONEAL SPACE: Unremarkable. No significant fluid collection. No free air. BONES/JOINTS: Lower lumbar degenerative changes. Osteopenia. No acute fracture. No dislocation. SOFT TISSUES: Unremarkable. VASCULATURE: Atherosclerotic disease of the distal abdominal aorta and iliac vasculature. LYMPH NODES: Unremarkable. No enlarged lymph nodes. IMPRESSION: 1. No acute aortic abnormality or pulmonary embolism. 2. No acute intrathoracic, abdominal or pelvic abnormality. 3. 1.6 cm right lower lobe pulmonary nodule. Per Fleischner Society Guidelines, consider a non-cont rast Chest CT at 3 months, a PET/CT, or tissue sampling. These guidelines do not apply to immunocompromised patients and patients with cancer. Follow up in pa tients with significant comorbidities as clinically warranted. For lung cancer screening, adhere to Lung-RADS guidelines. Reference: Radiology. 2017; 284(1):228-43. 4. Hepatic steatosis. 5. Splenomegaly. 6. Multiple bilateral renal cysts measuring up to 1.9 cm on the right. No follow-up imaging is wagner mmended. JACR 2017; 264-273, Management of the Incidental Renal Mass on CT, [employer] 2020; 814-848, B osniak Classification of Cystic Renal Masses, Version 2019. Electronically signed by: Sohan Moralez DO 12/24/2024 12:28 AM HEALTH ASSESSMENT AND TREATMENT TEACHER 9 Due to temporary technical issues with the PACS/[employer] reporting system, reports are being julia d by the in-house radiologist without review as a courtesy to ensure prompt reporting the interpreting radiologist is fully responsible for the content of the report. Transcribed Date/Time: 12/24/2024 1:16 AM
--- NOTE | 2024-12-24 01:25 | ER ---
Nurse's Notes [facility] Name: Zoraida Mcleod Age: 59 yrs Sex: Female : 1965 Arrival Date: 12/23/2024 Time: 19:12 Bed 16 Private MD: Diagnosis: Angina pectoris, unspecified;COPD/ Chronic obstructive pulmonary disease with (acute) exacerbation Presentation: 12/23 19:34 Chief complaint: Patient states: Chest pain to the center of chest that radiates to cm10 right breast onset 45 minutes ago. Coronavirus screen: Client denies travel out of the [place] in the last 14 days. Ebola Screen: Patient denies travel to an Ebola-affected area in the 21 days before illness onset. Initial Sepsis Screen: Does the patient meet any 2 criteria? No. Patient's initial sepsis screen is negative. Does the patient have a suspected source of infection? No. Patient's initial sepsis screen is negative. Risk Assessment: Do you want to hurt yourself or someone else? Patient reports no desire to harm self or others. Onset of symptoms was December 23, 2024. 19:34 Method Of Arrival: Ambulatory cm10 19:34 Acuity: VILLA 2 cm10 Triage Assessment: 19:36 General: Appears in no apparent distress. uncomfortable, Behavior is calm, cooperative. cm10 Neuro: No deficits noted. Level of Consciousness is awake, alert, obeys commands, Oriented to person, place, time, situation, Appropriate for age. Respiratory: No deficits noted. Airway is patent Respiratory effort is even, unlabored, Respiratory pattern is regular, symmetrical. Historical: - Allergies: 19:36 Morphine; cm10 - PMHx: 19:36 Cerebrovascular accident; COPD; Hypertensive disorder; Myocardial infarction; cm10 - PSHx: 19:36 hernia repair; Tonsillectomy; tubal ligation; Cardiac stents; cm10 - Immunization history:: Adult Immunizations up to date. - Infectious Disease History:: Denies. - Social history:: Smoking status: Patient reports the use of cigarette tobacco products, denies chronic smoking, but will smoke occasionally. Screenin:48 [facility] ED Fall Risk Assessment (Adult) History of falling in the last 3 months, dd2 including since admission No falls in past 3 months (0 pts) Confusion or Disorientation No (0 pts) Intoxicated or Sedated No (0 pts) Impaired Gait No (0 pts) Mobility Assist Device Used No (0 pt) Altered Elimination No (0 pt) Score/Fall Risk Level 0 - 2 = Low Risk Oriented to surroundings, Maintained a safe environment, Educated pt \T\ family on fall prevention, incl call for assistance when getting out of bed, Assessed \T\ reinforced patient's understanding of fall precautions, Hourly rounding (assess needs \T\ fall precautionary measures) done. Abuse screen: Denies threats or abuse. Nutritional screening: No deficits noted. Tuberculosis screening: No symptoms or risk factors identified. Assessment: 20:20 General: Appears in no apparent distress. uncomfortable, Behavior is calm, cooperative, dd2 appropriate for age. Pain: Complains of pain in right clavicle and anterior aspect of right upper chest Pain does not radiate. Quality of pain is described as sharp, shooting, Pain began 2 hours ago. Neuro: Camilo Agitation-Sedation Scale (RASS): 0 - Alert and Calm Level of Consciousness is awake, alert, obeys commands, Oriented to person, place, time, situation, Appropriate for age. Cardiovascular: Reports chest pain, Heart tones S1 S2 present Patient's skin is warm and dry. Chest pain is described as mild, quality is sharp, began 2 hours prior to arrival. Respiratory: Airway is patent Respiratory effort is even, unlabored, Respiratory pattern is regular, symmetrical, Breath sounds are clear bilaterally. GI: No deficits noted. No signs and/or symptoms were reported involving the gastrointestinal system. : No deficits noted. No signs and/or symptoms were reported regarding the genitourinary system. EENT: No deficits noted. No signs and/or symptoms were reported regarding the EENT system. Derm: No deficits noted. No signs and/or symptoms reported regarding the dermatologic system. Musculoskeletal: No deficits noted. No signs and/or symptoms reported regarding the musculoskeletal system. Circulation, motion, and sensation intact. Range of motion: intact in all extremities. Vital Signs: 19:34 BP 140 / 107; Pulse 92; Resp 18; Pulse Ox 80% on R/A; Weight 104.33 kg; Height 5 ft. 1 cm10 in. ; Pain 8/10; 19:37 Pulse Ox 100% on 4 lpm NC; cm10 20:40 BP 137 / 88; Pulse 82; Resp 17; Pulse Ox 98% on 2 lpm NC; dd2 21:30 BP 124 / 98; Pulse 89; Resp 18; Pulse Ox 98% on 2 lpm NC; dd2 22:30 BP 146 / 82; Pulse 81; Resp 16; Pulse Ox 96% on R/A; dd2 12/24 00:15 BP 155 / 67; Pulse 93; Resp 17; Pulse Ox 96% on R/A; dd2 12/23 19:34 Body Mass Index 43.46 (104.33 kg, 154.94 cm) cm10 12/23 19:34 Pain Scale: Adult cm10 [place] Coma Score: 12/23 20:20 Eye Response: spontaneous(4). Motor Response: obeys commands(6). Verbal Response: dd2 oriented(5). Total: 15. ED Course: 19:18 Patient arrived in ED. gm2 19:32 EKG done, by ED staff. hw 19:33 Shane Alvarez PA is PHCP. cp 19:33 Shane Pastor MD is Attending Physician. cp 19:34 WHIT GUAMAN RN is Primary Nurse. dd2 19:36 Triage completed. cm10 19:37 Arm band placed on right wrist. Patient placed in an exam room, on a stretcher, on cm10 oxygen, on pulse oximetry. EKG completed in triage. Results shown to MD. 20:20 No provider procedures requiring assistance completed. Oxygen administration via nasal dd2 cannula \T\ 2L/min. 20:21 XRAY Chest (1 view) In Process Unspecified. EDMS 20:42 Patient has correct armband on for positive identification. Bed in low position. Call dd2 light in reach. Side rails up X2. Client placed on continuous cardiac and pulse oximetry monitoring. NIBP monitoring applied. case monitor on. Door closed. Noise minimized. Warm blanket given. Pillow given. Verbal reassurance given. 21:36 Initial lab(s) drawn, by me, sent to lab. Accessed peripheral vein via ultrasound, cm10 utilizing dynamic ultrasound technique Blood collected. Clean \T\ dry. Dressing intact. Good blood return. Flushes easily. 20g left forearm. 23:13 CT Aorta for Dissection In Process Unspecified. EDMS 12/24 01:24 Jeremy Arredondo MD is Hospitalizing Provider. cp Administered Medications: 12/23 21:02 Drug: DuoNeb Nebulize (2.5 mg - 0.5 mg) 3 ml Nebulizer once Route: Nebulizer; dd2 21:32 Follow up: Response: No adverse reaction dd2 21:41 Drug: fentaNYL (PF) IVP 25 mcg IVP once Route: IVP; Site: left forearm; dd2 21:56 Follow up: Response: No adverse reaction dd2 21:41 Drug: MethylPrednisoLONE IVP 125 mg IVP once Route: IVP; Site: left forearm; dd2 21:56 Follow up: Response: No adverse reaction dd2 12/24 00:14 Drug: fentaNYL (PF) IVP 50 mcg IVP once Route: IVP; Site: left forearm; dd2 00:29 Follow up: Response: No adverse reaction dd2 Medication: 12/23 20:20 VIS not applicable for this client. dd2 Outcome: 12/24 01:24 Decision to Hospitalize by Provider. cp 07:44 Patient left the ED. ph Signatures: Dispatcher [employer] Larisa Rodriguez RN RN ph Shane Alvarez PA PA cp Martinez, Clarissa, RN RN cm10 Haven Crain 2 WHIT GUAMAN RN RN dd2 Teresa Hopkins
--- NOTE | 2024-12-24 01:25 | EDPHYS ---
Physician Documentation [facility] Name: Zoraida Mcleod Age: 59 yrs Sex: Female : 1965 Arrival Date: 12/23/2024 Time: 19:12 Bed 16 Private MD: ED Physician Shane Pastor HPI: 12/23 19:40 This 59 yrs old Female presents to ER via Ambulatory with complaints of Arm Pain, Chest cp Pressure, Back Pain, Pt had 3 stents 7 days ago. 19:40 The patient or guardian reports chest pain that is located primarily in the substernal cp area. Onset:. 19:40 The pain does not radiate. cp 19:40 Associated signs and symptoms: Pertinent positives: shortness of breath, Pertinent cp negatives: abdominal pain, syncope, vomiting. The chest pain is described as a pressure. Duration: The patient or guardian reports a single episode, that is still ongoing, and unchanged. Historical: - Allergies: 19:36 Morphine; cm10 - PMHx: 19:36 Cerebrovascular accident; COPD; Hypertensive disorder; Myocardial infarction; cm10 - PSHx: 19:36 hernia repair; Tonsillectomy; tubal ligation; Cardiac stents; cm10 - Immunization history:: Adult Immunizations up to date. - Infectious Disease History:: Denies. - Social history:: Smoking status: Patient reports the use of cigarette tobacco products, denies chronic smoking, but will smoke occasionally. ROS: 19:43 Constitutional: Negative for body aches, chills, fever, poor PO intake, cp 19:43 Cardiovascular: Positive for chest pain, cp 19:43 Respiratory: Positive for shortness of breath, at rest. 19:43 Eyes: Negative for injury, pain, redness, and discharge, cp 19:43 ENT: Negative for drainage from ear(s), ear pain, sore throat, difficulty swallowing, difficulty handling secretions, 19:43 Abdomen/GI: Negative for abdominal pain, vomiting, diarrhea, constipation, 19:43 Back: Positive for radiated pain, 19:43 Neuro: Negative for altered mental status, syncope, weakness, cp 19:43 All other systems are negative, Exam: 19:35 ECG was reviewed by the Attending Physician. cp 19:45 Constitutional: The patient appears in no acute distress, alert, awake, cp non-diaphoretic, non-toxic, well developed, well nourished, uncomfortable, 19:45 Head/Face: Normocephalic, atraumatic. cp 19:45 Eyes: Periorbital structures: appear normal, Conjunctiva: normal, no exudate, no injection, Sclera: no appreciated abnormality, Lids and lashes: appear normal, bilaterally, 19:45 ENT: External ear(s): are unremarkable, Nose: is normal, Mouth: Lips: moist, Oral mucosa: moist, Posterior pharynx: Airway: no evidence of obstruction, patent, 19:45 Neck: ROM/movement: is normal, is supple, no meningismus, no nuchal rigidity, 19:45 Chest/axilla: Inspection: normal, 19:45 Cardiovascular: Rate: normal, Rhythm: regular, Edema: is not appreciated, JVD: is not appreciated, 19:45 Respiratory: the patient does not display signs of respiratory distress, Respirations: labored breathing, that is mild, Breath sounds: decreased breath sounds, that are moderate, throughout, stridor, is not appreciated, wheezing: that is mild, is heard diffusely, 19:45 Abdomen/GI: Inspection: abdomen appears normal, Palpation: abdomen is soft and non-tender, in all quadrants, 19:45 Back: CVA tenderness, is absent, 19:45 Neuro: Orientation: to person, place \T\ time. Mentation: is normal, Motor: moves all fours, no focal deficits, Sensation: no obvious gross deficits, Vital Signs: 19:34 BP 140 / 107; Pulse 92; Resp 18; Pulse Ox 80% on R/A; Weight 104.33 kg; Height 5 ft. 1 cm10 in. ; Pain 8/10; 19:37 Pulse Ox 100% on 4 lpm NC; cm10 20:40 BP 137 / 88; Pulse 82; Resp 17; Pulse Ox 98% on 2 lpm NC; dd2 21:30 BP 124 / 98; Pulse 89; Resp 18; Pulse Ox 98% on 2 lpm NC; dd2 22:30 BP 146 / 82; Pulse 81; Resp 16; Pulse Ox 96% on R/A; dd2 0208 00:15 BP 155 / 67; Pulse 93; Resp 17; Pulse Ox 96% on R/A; dd2 12/23 19:34 Body Mass Index 43.46 (104.33 kg, 154.94 cm) cm10 12/23 19:34 Pain Scale: Adult cm10 [place] Coma Score: 12/23 20:20 Eye Response: spontaneous(4). Motor Response: obeys commands(6). Verbal Response: dd2 oriented(5). Total: 15. MDM: 19:37 Medical Screening Exam initiated cp 12/24 00:45 Data reviewed: vital signs, nurses notes, lab test result(s), EKG, radiologic studies, cp CT scan, plain films, and as a result, I will admit patient. 00:45 Differential diagnosis: acute myocardial infarction, pleurisy, pneumonia, pneumothorax, cp pulmonary embolus, stable angina, thoracic aortic disection, unstable angina. Management of patient was discussed with the following: Hospitalist: DR Arredondo will admit after discussion. I considered the following discharge prescriptions or medication management in the emergency department Medications were administered in the Emergency Department. See MAR. Independent interpretation of the following test(s) in the Emergency Department EKG: See my EKG interpretation above. Care significantly affected by the following chronic conditions: Hypertension, Obesity. Counseling: I had a detailed discussion with the patient and/or guardian regarding the historical points, exam findings, and any diagnostic results supporting the discharge/admit diagnosis, lab results, radiology results, the need for further work-up and treatment in the hospital. Response to treatment: the patient's symptoms have mildly improved after treatment. 12/23 19:37 Order name: Basic Metabolic Panel; Complete Time: 22:08 cp 02 22:08 Interpretation: Normal except: CL 109; GLUC 158; GFR 76. cp 12/23 19:37 Order name: CBC with Diff; Complete Time: 21:45 cp 12/23 19:37 Order name: LFT's; Complete Time: 22:08 cp 0207 22:09 Interpretation: Normal except: AST 13; ALK 130; IBILI, CALC 0.0; ALB 2.9; GLOB 4.5; A/G cp 0.6. 12/23 19:37 Order name: Magnesium; Complete Time: 22:08 cp 02 19:37 Order name: NT PRO-BNP; Complete Time: 22:08 cp 12/23 19:37 Order name: PT-INR; Complete Time: 22:08 cp 12/23 19:37 Order name: Troponin HS; Complete Time: 22:08 cp 12/23 22:09 Interpretation: Troponin HS 18.2; Reviewed. cp 12/23 19:38 Order name: Urinalysis w/ reflexes cp 12/23 19:59 Order name: Influenza Screen (a \T\ B); Complete Time: 22:08 cp 12/23 19:59 Order name: SARS RAPID; Complete Time: 22:08 cp 12/23 23:18 Order name: Troponin High Sensitivity cp 12/24 03:32 Order name: Urinalysis w/ reflexes EDMS 12/24 03:32 Order name: CBC with Automated Diff EDMS 12/24 03:32 Order name: CBC with Automated Diff EDMS 12/24 03:32 Order name: Comprehensive Metabolic Panel EDMS 12/24 03:32 Order name: Comprehensive Metabolic Panel EDMS 12/24 03:32 Order name: Troponin High Sensitivity EDMS 12/24 03:32 Order name: Troponin High Sensitivity EDMS 12/24 03:32 Order name: Troponin High Sensitivity EDMS 12/24 03:32 Order name: Troponin High Sensitivity EDMS 12/23 19:37 Order name: XRAY Chest (1 view); Complete Time: 20:33 cp 12/23 20:33 Interpretation: Report review. cp 12/23 22:10 Order name: CT Aorta for Dissection cp 12/23 19:37 Order name: EKG; Complete Time: 19:38 cp 12/23 19:37 Order name: Cardiac monitoring; Complete Time: 20:50 cp 12/23 19:37 Order name: EKG - Nurse/Tech; Complete Time: 20:50 cp 12/23 19:37 Order name: IV Saline Lock; Complete Time: 21:41 cp 12/23 19:37 Order name: Labs collected and sent; Complete Time: 21:41 cp 12/23 19:37 Order name: O2 Per Protocol; Complete Time: 20:50 cp 12/23 19:37 Order name: O2 Sat Monitoring; Complete Time: 20:50 cp EC/07 19:35 Rate is 102 beats/min. Rhythm is regular. HI interval is normal. QRS interval is cp normal. QT interval is normal. T waves are Inverted. Interpreted by me. Reviewed by me. Administered Medications: 21:02 Drug: DuoNeb Nebulize (2.5 mg - 0.5 mg) 3 ml Nebulizer once Route: Nebulizer; dd2 21:32 Follow up: Response: No adverse reaction dd2 21:41 Drug: fentaNYL (PF) IVP 25 mcg IVP once Route: IVP; Site: left forearm; dd2 21:56 Follow up: Response: No adverse reaction dd2 21:41 Drug: MethylPrednisoLONE IVP 125 mg IVP once Route: IVP; Site: left forearm; dd2 21:56 Follow up: Response: No adverse reaction dd2 12/24 00:14 Drug: fentaNYL (PF) IVP 50 mcg IVP once Route: IVP; Site: left forearm; dd2 00:29 Follow up: Response: No adverse reaction dd2 Disposition Summary: 12/24/24 01:24 Hospitalization Ordered Notes: Hospitalization Status: Observation cp Provider: Jeremy Arredondo cp Condition: Stable cp Problem: new cp Symptoms: have improved cp Bed/Room Type: Standard cp Location: Telemetry/MedSurg (observation)(12/24/24 06:15) eb Room Assignment: [facility](12/24/24 06:15) eb Diagnosis - Angina pectoris, unspecified cp - COPD/ Chronic obstructive pulmonary disease with (acute) exacerbation cp Forms: - Medication Reconciliation Form cp - SBAR form cp - Leadership Thank You Letter cp Addendum: 01/01/2025 08:41 Co-signature as Attending Physician, Shane Pastor MD I agree with the assessment and c holley plan of care. Signatures: Dispatcher [employer] Shane Quiros MD MD cha Pinkerton, Shawna sp Page, Corey, PA PA cp Botello, Elizabeth eb Martinez, Clarissa, RN RN cm10 WHIT GUAMAN RN RN dd2 Corrections: (The following items were deleted from the chart) 12/24 02:09 01:24 Telemetry/MedSurg (observation) cp sp 02:09 01:24 cp sp 06:15 02:09 [facility] ER HOLD sp eb 06:15 02:09 ERHOLD- sp eb
[2024-12-24] MEDS ORDERED: ACETAMINOPHEN 325 MG TABLET PO PRN (03:27)
--- NOTE | 2024-12-24 03:27 | P.HP ---
Certification for Inpatient Patient admitted to: Observation With expected LOS: <2 Midnights Practitioner: I am a practitioner with admitting privileges, knowledge of patient current condition, hospital course, and medical plan of care. Services: Services provided to patient in accordance with Admission requirements found in Title 42 Section 412.3 of the Code of Federal Regulations Patient History Date of Service: 12/24/24 Reason for admission: Chest Pain History of Present Illness: 59 yrs old Female with past medical history of CAD status post stents recently, CHF, diabetes, history of factor V Leiden on anticoagulation, history of CVAs in the past, COPD, hypertension, came to ER with chest discomfort. Patient had 3 stents 7 days ago. Has been doing fine but last night she started having chest discomfort and pressure-like feeling retrosternally and radiating to the back and right shoulder. Intermittent, 3 out of 10 in severity at the time of interview. Denies any diaphoresis. No nausea vomiting or diarrhea. Patient was assessed in the ER and is admitted for further management of unstable angina Allergies morphine Allergy (Verified 10/08/22 23:52) Anaphylaxis Home medications list reviewed: Yes Home Medications: Carisoprodol [Soma] 350 mg PO TID 10/09/22 Hydrocodone Bit/Acetaminophen [Hydrocodon-Acetaminophn 10-325] 10 - 325 mg PO Q8HP PRN 10/09/22 Metformin HCl 1,000 mg PO BID 10/09/22 Rivaroxaban [Xarelto] 20 mg PO DAILY 10/09/22 Fluticasone/Umeclidin/Vilanter [Trelegy Ellipta 100-62.5-25] 1 each IH DAILY 30 Days #30 aero 03/26/24 Mometasone/Formoterol [Dulera 200 Mcg/5 Mcg Inhaler] 2 puff IH BID inhaler 03/28/24 Esomeprazole Magnesium 40 mg PO DAILY 11/29/24 Furosemide 40 mg PO DAILY 11/29/24 Ondansetron [Zofran (Odt)*] 4 mg PO Q8H PRN 11/29/24 ALPRAZolam [Xanax*] 1 mg PO BEDTIME 11/30/24 Aspirin [Aspirin EC 81 MG] 81 mg PO DAILY 30 Days #30 tab 12/02/24 Atorvastatin Calcium [Lipitor] 80 mg PO BEDTIME 30 Days #30 tab 12/02/24 Ciprofloxacin HCl [Cipro] 500 mg PO BID 4 Days #8 tab 12/02/24 Clopidogrel Bisulfate [Plavix*] 75 mg PO DAILY 30 Days #30 tab 12/02/24 Insulin Glargine,Hum.rec.anlog [Lantus Solostar] 40 unit SQ BEDTIME 30 Days #1200 unit 12/02/24 Lisinopril [Zestril] 2.5 mg PO DAILY 30 Days #30 tab 12/02/24 Metoprolol Tartrate [Lopressor*] 25 mg PO BID 30 Days #60 tab 12/02/24 - Past Medical/Surgical History Diabetic: Yes Past Medical History: Reviewed- Non-Contributory -: Type 2 Diabetes, Non-Insulin Dependent -: Factor V Leiden -: CVAs -: Hypertension Past Surgical History: Reviewed- Non-Contributory -: Tubal Ligation -: Tonsillectomy -: tubal ligation Psychosocial/ Personal History: Patient lives at home alone. - Family History Family History: Reviewed- Non-Contributory - Family History Mother -: Heart disease (Father), Cancer Notes: unknown kind Father -: Cancer Notes: unknown kind paternal grandmother -: Diabetes - Social History Smoking Status: Never smoker Alcohol use: No CD- Drugs: No Caffeine use: Yes Review of Systems 10-point ROS is otherwise unremarkable Physical Examination - Vital Signs Temperature: 97.8 F Blood Pressure: 132/72 Pulse: 70 Respirations: 18 Pulse Ox (%): 94 - Physical Exam General: Alert, Oriented x3, Mild distress, Obese HEENT: Atraumatic, Normocephalic Neck: Supple, 2+ carotid pulse no bruit Respiratory: Clear to auscultation bilaterally, Normal air movement Cardiovascular: Regular rate/rhythm, Normal S1 S2 Capillary refill: <2 Seconds Gastrointestinal: Soft and benign, W/out hepatosplenomegaly Musculoskeletal: No clubbing, No swelling Integumentary: No rashes Neurological: Normal speech, Normal strength at 5/5 x4 extr, Cranial nerves 3-12 intact Lymphatics: No axilla or inguinal lymphadenopathy - Studies Laboratory Data (last 24 hrs) 12/23/24 12/23/24 12/23/24 21:30 21:30 21:30 WBC 10.80 Hgb 13.6 Hct 39.1 Plt Count 230 PT 15.5 H INR 1.48 Sodium 139 Potassium 3.9 BUN 15 Creatinine 0.88 Glucose 158 H Magnesium 2.1 Total Bilirubin 0.2 AST 13 L ALT 24 Alkaline Phosphatase 130 H Microbiology Data (last 24 hrs): 12/23/24 20:20 Nasopharnyx Influenza Type A Antigen Screen - Final 12/23/24 20:20 Nasopharnyx Influenza Type B Antigen Screen - Final Assessment and Plan - Plan Unstable angina Will trend cardiac enzymes Will monitor telemetry Started on aspirin and statin EKG did not show any acute changes suggestive of ischemia Will get an echocardiogram Cardiology consult CT chest negative for any acute changes Hypertension Antihypertensives titrated Continue home medications and titrate as needed Hyperlipidemia Continue statin Factor V Leiden History of CVAs Continue Xarelto Monitor closely on telemetry Diabetes Insulin sliding scale Accu-Chek before every meal and at bedtime GI/DVT prophylaxis with Xarelto Advanced directive full code Discharge Plan: Home Plan to discharge in: 24 Hours - Advance Directives Does patient have a Living Will: No Does patient have a Durable POA for Healthcare: No - Code Status/Comfort Care Code Status: Full Code Time Spent Managing Pts Care (In Minutes): 48
[2024-12-24 05:09] VITALS: BMI 43.3
[2024-12-24] MEDS ORDERED: PANTOPRAZOLE 40MG TABLET PO SCH (06:30)
[2024-12-24] MEDS ORDERED: HYDROMORPHONE HCL 0.5 MG/0.5 ML INJ ONE (06:45)
[2024-12-24] MEDS: HYDROMORPHONE HCL 0.5 MG/0.5 ML INJ IV PRN (06:47)
[2024-12-24 07:56] VITALS: O2SAT 96
[2024-12-24] MEDS: PNEUMOCOCCAL VACCINE 0.5 ML IMVAC ONE (08:00)
[2024-12-24] MEDS: Fluticasone/Umeclidin/Vilanter [Trelegy Ellipta 100-62.5-25] Blst.W.Dev IH SCH (09:00)
[2024-12-24] MEDS: DULERA IH SCH (09:00)
[2024-12-24] MEDS ORDERED: DULERA 200/5 (MOMETASONE/FORMOTEROL) INHALER IH SCH (09:00)
[2024-12-24] MEDS ORDERED: ENOXAPARIN 40 MG/0.4 ML SQ SCH (09:00)
[2024-12-24] MEDS: lisinopriL 5 MG TAB PO SCH (09:26)
[2024-12-24] MEDS: METOPROLOL TAR 25 MG TAB PO SCH (09:26)
[2024-12-24] MEDS: RIVAROXABAN 20 MG TABLET PO SCH (09:26)
[2024-12-24] MEDS: carisoprodoL 350 MG TAB PO SCH (09:26)
[2024-12-24] MEDS: CLOPIDOGREL 75 MG TABLET PO SCH (09:26)
[2024-12-24] MEDS: ASPIRIN EC 81 MG TAB PO SCH (09:26)
[2024-12-24] MEDS: PANTOPRAZOLE 40MG TABLET PO SCH (12:07)
[2024-12-24] MEDS ORDERED: D10W 125 ML IV PRN (12:18)
[2024-12-24] MEDS ORDERED: GLUCAGON 1 MG/VIAL IM PRN (12:18)
[2024-12-24] MEDS: HYDROCODONE/APAP 5/325 MG TAB PO PRN (12:28)
[2024-12-24] MEDS: INSULIN REGULAR (HUMAN) 100 UNIT/ML SQ SCH (12:30)
[2024-12-24] MEDS ORDERED: INSULIN REGULAR (HUMAN) 100 UNIT/ML SQ SCH (16:30)
--- NOTE | 2024-12-24 17:49 | P.PN ---
Date of Service: 12/24/24 Patient seen and examined. Patient denies any chest pain at the moment. She reports she has been chest pain-free since admission. Troponin trended negative. Patient with significant personal history of CAD. Recent cardiac catheterization 3 weeks ago with stenting of the RCA. Plan: Continue aspirin and Plavix Statin Metoprolol. Will change Xarelto to full dose Lovenox in anticipation for cardiac catheterization if needed. Cardiology consulted to evaluate. Dr. Venegas informed.
[2024-12-24] MEDS: ALPRAZOLAM 1 MG TABLET PO SCH (20:54)
[2024-12-24] MEDS: ENOXAPARIN 100 MG/ML SYR SQ SCH (20:54)
[2024-12-24] MEDS: INSULIN GLARGINE 100 UNIT/ML SQ SCH (20:54)
[2024-12-24] MEDS: ATORVASTATIN 80 MG TAB PO SCH (20:54)
[2024-12-24] MEDS ORDERED: HOME MED 1 EA UNK (Insulin Glargine,Hum.Rec.Anlog [Lantus Solostar] 100 UNIT/ML Insuln.Pen SQ SCH (21:00)
[2024-12-25 06:21] LABS: Absolute Basophils 0.1 K/uL (0-0.5); Absolute Eosinophils 0.2 K/uL (0-0.5); Absolute Lymphocytes (CBC) 2.7 K/uL (0.7-4.9); Absolute Monocytes 0.7 K/uL (0.1-1.3); Absolute Neutrophil 5.6 K/uL (1.8-8.0); Basophils % 0.9 % (0-1.3); Eosinophils % 1.9 % (0-4.4); Hematocrit 36.7 % (36.0-45.0); Hemoglobin 12.3 g/dL (12.0-15.0); Lymphocytes % 29.5 % (15.3-44.8); MCH 28.5 pg (27.0-35.0); MCHC 33.5 g/dL (32.0-36.0); MPV 7.6 fL (7.6-11.3); Monocytes % 7.1 % (3.3-12.3); Neutrophils % 60.6 % (41.7-73.7); Nucleated Red Blood Cells % 0.1 % (0-0); Platelets 204 thou/uL (152-406); RBC Red Blood Cell Count 4.31 M/uL (3.86-4.86); Red Cell Distribution Width 15.7 % (12.1-15.2)
[2024-12-25 06:25] LABS: Specific Gravity 1.027 (1.005-1.030); Sqamous Epithelial <5 /HPF (None Seen); Urine Bacteria None Seen /HPF (<20); Urine Bilirubin NEGATIVE (Negative); Urine Blood Negative (Negative); Urine Clarity Clear (Clear); Urine Color Light-Yellow (Yellow); Urine Culture Reflex Order NOT NEEDED; Urine Glucose 4+ (Over) (Negative); Urine Ketones NEGATIVE (Negative); Urine Microscopic Reflex YN ORDER UMIC; Urine Nitrite NEGATIVE (Negative); Urine Protein TRACE (Negative); Urine RBC None Seen /HPF (None Seen); Urine Urobilinogen Normal (Normal); Urine WBC <5 /HPF (<5); Urine Yeast (Budding) Trace /HPF (None Seen); Urine pH 5.5 (5.0-7.0)
[2024-12-25 06:38] LABS: Albumin 2.6 g/dL (3.4-5.0); Albumin/Globulin Ratio 0.7 (1.1-1.8); Anion Gap 6.9 mEq/L (5.0-15.0); Bilirubin Total 0.2 mg/dL (0.2-1.0); Globulin 3.9 g/dL (2.3-3.5); Potassium 3.9 mEq/L (3.5-5.1); Protein, Total 6.5 g/dL (6.4-8.2)
--- NOTE | 2024-12-25 13:26 | P.PN ---
Subjective Date of Service: 12/25/24 Chief Complaint: Chest Pain Patient denies any chest pain. She denies any shortness of breath. Nursing staff report patient has been walking around the hallway. Physical Examination - Vital Signs Temperature: 97.5 F Blood Pressure: 154/86 Pulse: 93 Respirations: 16 Pulse Ox (%): 98 - Studies Laboratory Data (last 24 hrs) 12/25/24 12/25/24 05:56 05:50 WBC 9.30 Hgb 12.3 Hct 36.7 Plt Count 204 Sodium 139 Potassium 3.9 BUN 18 Creatinine 0.90 Glucose 286 H Total Bilirubin 0.2 AST 13 L ALT 21 Alkaline Phosphatase 116 Assessment And Plan - Plan Physical examination General: Alert and oriented x3, NAD, HEENT: Conjunctiva not pale, anicteric sclera Neck: Supple, no elevated JVD Heart: Heart sounds 1 and 2 normal, regular rhythm, normal rate, no pedal edema Lungs: Clear to auscultation bilaterally, adequate breath sounds bilaterally, no rhonchi or crackles. Abdomen: Soft, nondistended, nontender, normal bowel sounds. Extremities: No tenderness, no deformity Skin: Normal skin turgor, no rash, no nodules or ulcers. Neuro: No focal motor deficit. Normal speech. Psychiatry: Normal mood, no agitation. Diagnosis Unstable angina Coronary artery disease Essential hypertension Hyperlipidemia Factor V Leiden deficiency DM type II Unstable angina Coronary artery disease Troponin trended negative Continue aspirin, plavix and statin Patient is on full dose Lovenox. Continue home dose metoprolol EKG did not show any acute changes suggestive of ischemia Cardiology consulted, Dr. Venegas to see pt. CT chest negative for any acute changes Hypertension Patient is on metoprolol. Titrate for blood pressure control. Hyperlipidemia Continue statin Factor V Leiden History of CVAs Xarelto changed to full dose Lovenox pending cardiology evaluation of angina.. Monitor closely on telemetry Diabetes melitis type II Insulin sliding scale Accu-Chek before every meal and at bedtime Home dose Lantus resumed. Dose increased to 45 units at bedtime. DVT prophylaxis: Lovenox Advanced directive full code
[2024-12-25] MEDS: METOPROLOL TAR 25 MG TAB PO ONE (13:59)
[2024-12-25] MEDS ORDERED: METOPROLOL TAR 25 MG TAB PO SCH (21:00)
[2024-12-25] MEDS: METOPROLOL TAR 50 MG TAB PO SCH (21:33)
[2024-12-25] MEDS: INSULIN GLARGINE 100 UNIT/ML SQ SCH (21:33)
[2024-12-26] MEDS: POTASSIUM CL SA 10 MEQ TAB PO ONE (08:07)
[2024-12-26] MEDS: ONDANSETRON 4 MG/2 ML VIAL IV PRN (08:11)
--- NOTE | 2024-12-26 10:37 | P.CNS ---
Date of Consult: 12/26/24 Chief Complaint: Chest Pain History of Present Illness: Patient with PMH of CAD s/p recent PCI RCA with mild mid LAD disease, factor 5 leiden mutation, presented with chest pain, elevated BP, report back pain that radiate to the right side of her chest, no other cardiac symptoms. Allergies morphine Allergy (Verified 10/08/22 23:52) Anaphylaxis Home medications list reviewed: Yes Home Medications: Carisoprodol [Soma] 350 mg PO TID 10/09/22 Hydrocodone Bit/Acetaminophen [Hydrocodon-Acetaminophn 10-325] 10 - 325 mg PO Q8HP PRN 10/09/22 Metformin HCl 1,000 mg PO BID 10/09/22 Rivaroxaban [Xarelto] 20 mg PO DAILY 10/09/22 Fluticasone/Umeclidin/Vilanter [Trelegy Ellipta 100-62.5-25] 1 each IH DAILY 30 Days #30 aero 03/26/24 Mometasone/Formoterol [Dulera 200 Mcg/5 Mcg Inhaler] 2 puff IH BID inhaler 03/28/24 Esomeprazole Magnesium 40 mg PO DAILY 11/29/24 Furosemide 40 mg PO DAILY 11/29/24 Ondansetron [Zofran (Odt)*] 4 mg PO Q8H PRN 11/29/24 ALPRAZolam [Xanax*] 1 mg PO BEDTIME 11/30/24 Aspirin [Aspirin EC 81 MG] 81 mg PO DAILY 30 Days #30 tab 12/02/24 Atorvastatin Calcium [Lipitor] 80 mg PO BEDTIME 30 Days #30 tab 12/02/24 Ciprofloxacin HCl [Cipro] 500 mg PO BID 4 Days #8 tab 12/02/24 Clopidogrel Bisulfate [Plavix*] 75 mg PO DAILY 30 Days #30 tab 12/02/24 Insulin Glargine,Hum.rec.anlog [Lantus Solostar] 40 unit SQ BEDTIME 30 Days #1200 unit 12/02/24 Lisinopril [Zestril] 2.5 mg PO DAILY 30 Days #30 tab 12/02/24 Metoprolol Tartrate [Lopressor*] 25 mg PO BID 30 Days #60 tab 12/02/24 - Past Medical/Surgical History Diabetic: Yes -: Type 2 Diabetes, Non-Insulin Dependent -: Factor V Leiden -: CVAs -: Hypertension -: Tubal Ligation -: Tonsillectomy -: tubal ligation Psychosocial/ Personal History: Patient lives at home alone. - Family History Mother Medical History: Heart disease, Cancer Notes: unknown kind Father Medical History: Cancer Notes: unknown kind paternal grandmother Medical History: Diabetes - Social History Smoking Status: Current some day smoker Alcohol use: No CD- Drugs: No Caffeine use: Yes Review of Systems 10-point ROS is otherwise unremarkable Physical Examination Temp Pulse Resp BP Pulse Ox 97.8 F 86 16 130/75 97 12/26/24 08:00 12/26/24 08:08 12/26/24 08:00 12/26/24 08:08 12/26/24 08:00 General: Alert, In no apparent distress HEENT: Atraumatic, PERRLA, Mucous membr. moist/pink, EOMI, Sclerae nonicteric Neck: Supple, 2+ carotid pulse no bruit, No LAD, Without JVD or thyroid abnormality Respiratory: Clear to auscultation bilaterally, Normal air movement Cardiovascular: Regular rate/rhythm, Normal S1 S2 Gastrointestinal: Normal bowel sounds, No tenderness Musculoskeletal: No tenderness Integumentary: No rashes Neurological: Normal gait, Normal speech, Normal tone, Normal affect Lymphatics: No axilla or inguinal lymphadenopathy - Problems (1) CAD (coronary artery disease) Current Visit: Yes Status: Acute Plan: patient with recent PCI RCA, mild mid LAD disease, cardiac enzymes are negative, and chest pain is atypical continue ASA 81 mg daily continue Plavix 75 mg daily continue lipitor no further cardiac work up needed. (2) Factor V Leiden Current Visit: No Status: Chronic Plan: continue Xarelto (3) Hypertension Current Visit: No Status: Chronic Plan: reconcile and continue patient home medications. Qualifiers:
--- NOTE | 2024-12-26 11:49 | P.DS ---
Admission Date: 12/25/24 Discharge Date: 12/26/24 Disposition: ROUTINE DISCHARGE Discharge Condition: FAIR Reason for Admission: Chest Pain Brief History of Present Illness: 59 yrs old Female with past medical history of CAD status post stents recently, CHF, diabetes, history of factor V Leiden on anticoagulation, history of CVAs in the past, COPD, hypertension, came to ER with chest discomfort. Patient had cardiac stents placed 3 weeks ago. Patient developed chest discomfort and pressure-like feeling retrosternally and radiating to the back and right shoulder. Initial troponin negative, EKG did not show any acute ischemic c hanges. Patient was hospitalized for further management of unstable angina. Hospital Course: Diagnosis Unstable angina Coronary artery disease Essential hypertension Hyperlipidemia Factor V Leiden deficiency DM type II Patient admitted to the medical floor and the following medical problems addressed: Unstable angina Coronary artery disease Troponin trended negative Continued aspirin, plavix and statin Patient placed on full dose Lovenox during the hospital stay in anticipation for cardiac procedure Continued home dose metoprolol EKG did not show any acute changes suggestive of ischemia Cardiology consulted, patient evaluated by Dr. Reardon who recommended medical management. CT chest negative for any acute changes. Patient continues to smoke cigarettes. She has been advised to quit smoking. Hypertension Patient was normotensive on her home dose metoprolol Hyperlipidemia Continued statin Factor V Leiden History of CVAs Xarelto changed to full dose Lovenox pending cardiology evaluation of angina.. Xarelto resumed on discharge. Diabetes melitis type II Managed with insulin sliding scale and dose Lantus insulin. Home dose Lantus insulin and metformin resumed on discharge. Vital Signs/Physical Exam: Temp Pulse Resp BP Pulse Ox 97.8 F 86 16 130/75 97 12/26/24 08:00 12/26/24 08:08 12/26/24 08:00 12/26/24 08:08 12/26/24 08:00 General: Alert, In no apparent distress, Oriented x3, Obese HEENT: Mucous membr. moist/pink, Sclerae nonicteric Neck: Supple, JVD not distended Respiratory: Clear to auscultation bilaterally, Normal air movement Cardiovascular: No edema, Regular rate/rhythm, Normal S1 S2 Gastrointestinal: Normal bowel sounds, Soft and benign, Non-distended, No tenderness Musculoskeletal: No swelling Integumentary: No rashes, No cyanosis Neurological: Normal speech, Normal strength at 5/5 x4 extr Laboratory Data at Discharge: WBC 9.30 thou/uL (4.3-10.9) 12/25/24 05:50 Hgb 12.3 g/dL (12.0-15.0) 12/25/24 05:50 Hct 36.7 % (36.0-45.0) 12/25/24 05:50 Plt Count 204 thou/uL (152-406) 12/25/24 05:50 PT 15.5 SECONDS (9.4-12.5) H 12/23/24 21:30 INR 1.48 12/23/24 21:30 Sodium 139 mEq/L (136-145) 12/25/24 05:56 Potassium 3.9 mEq/L (3.5-5.1) 12/25/24 05:56 BUN 18 mg/dL (7-18) 12/25/24 05:56 Creatinine 0.90 mg/dL (0.55-1.02) 12/25/24 05:56 Glucose 286 mg/dL (74-106) H 12/25/24 05:56 Magnesium 2.1 mg/dL (1.6-2.4) 12/23/24 21:30 Total Bilirubin 0.2 mg/dL (0.2-1.0) 12/25/24 05:56 AST 13 U/L (15-37) L 12/25/24 05:56 ALT 21 U/L (13-56) 12/25/24 05:56 Alkaline Phosphatase 116 U/L (45-117) 12/25/24 05:56 Home Medications: Carisoprodol [Soma] 350 mg PO TID 10/09/22 Hydrocodone Bit/Acetaminophen [Hydrocodon-Acetaminophn 10-325] 10 - 325 mg PO Q8HP PRN 10/09/22 Metformin HCl 1,000 mg PO BID 10/09/22 Rivaroxaban [Xarelto] 20 mg PO DAILY 10/09/22 Fluticasone/Umeclidin/Vilanter [Trelegy Ellipta 100-62.5-25] 1 each IH DAILY 30 Days #30 aero 03/26/24 Mometasone/Formoterol [Dulera 200 Mcg/5 Mcg Inhaler] 2 puff IH BID inhaler 03/28/24 Esomeprazole Magnesium 40 mg PO DAILY 11/29/24 Furosemide 40 mg PO DAILY 11/29/24 Ondansetron [Zofran (Odt)*] 4 mg PO Q8H PRN 11/29/24 ALPRAZolam [Xanax*] 1 mg PO BEDTIME 11/30/24 Aspirin [Aspirin EC 81 MG] 81 mg PO DAILY 30 Days #30 tab 12/02/24 Atorvastatin Calcium [Lipitor] 80 mg PO BEDTIME 30 Days #30 tab 12/02/24 Clopidogrel Bisulfate [Plavix*] 75 mg PO DAILY 30 Days #30 tab 12/02/24 Lisinopril [Zestril] 2.5 mg PO DAILY 30 Days #30 tab 12/02/24 Metoprolol Tartrate [Lopressor*] 25 mg PO BID 30 Days #60 tab 12/02/24 Diet: ADA Activity: Ad hitesh Followup: Gael Reardon MD [ACTIVE - CAN ADMIT] - 1-2 Weeks Rich Dunbar MD [Primary Care Provider] - 1 Week Time spent managing pt's care (in minutes): 29
[2024-12-26 12:06] VITALS: BP 120/73; TEMP 97.9
--- NOTE | 2024-12-27 12:53 | EKG ---
Test Date: 2024-12-23 Test Time: 19:28:18 Radio Engineer: HERLINDA MEASUREMENT RESULTS: Intervals: Rate: 102 RI: 154 QRSD: 90 QT: 400 QTc: 521 [place]: P: 77 RI: 154 QRS: 60 T: 72 INTERPRETIVE STATEMENTS: Sinus tachycardia Nonspecific ST abnormality Abnormal ECG Compared to ECG 11/28/2024 17:58:29 ST (T wave) deviation now present Sinus rhythm no longer present Electronically Signed On 12-27-24 12:45:41 LICENSED GUIDE by Gael Reardon
== END 2024-12-26 12:09 | disposition home or self-care (01) | DRG 303 ==
LOC: ER 19:12 → ERHOLD 12-24 03:27 → 4TH 12-24 07:34 → OBSVTOIN 12-25 12:15
PROVIDERS: ADMIT Family Medicine; ATTEND Internal Medicine
DX: I25.110 Atherosclerotic heart disease of native coronary artery with unstable angina pectoris (principal); D68.2 Hereditary deficiency of other clotting factors; J44.1 Chronic obstructive pulmonary disease with (acute) exacerbation; E78.5 Hyperlipidemia, unspecified; E11.9 Type 2 diabetes mellitus without complications; I11.0 Hypertensive heart disease with heart failure; I50.9 Heart failure, unspecified; I25.2 Old myocardial infarction; F17.210 Nicotine dependence, cigarettes, uncomplicated; Z71.6 Tobacco abuse counseling; Z95.5 Presence of coronary angioplasty implant and graft; Z86.73 Personal history of transient ischemic attack (TIA), and cerebral infarction without residual deficits; Z79.01 Long term (current) use of anticoagulants; Z79.84 Long term (current) use of oral hypoglycemic drugs; Z79.899 Other long term (current) drug therapy; Z88.5 Allergy status to narcotic agent; Z11.52 Encounter for screening for COVID-19; Z82.49 Family history of ischemic heart disease and other diseases of the circulatory system; Z83.3 Family history of diabetes mellitus; Z80.9 Family history of malignant neoplasm, unspecified
CPT/HCPCS: 36415; 71045; 71275; 74175; 80048; 80053; 80076; 81001; 82947; 83735; 83880; 84484; 85025; 85610; 87804; 87811; 93005; 96374; 96375; 99285; G0378; J1171; J1650; J2405; J2919; J3010; J3535; J7613; J7644; Q9967

== ENCOUNTER 2025-08-18 08:10 | Emergency (ER) | payer OTHER ==
[2025-08-18 09:02] LABS: Influenza A Ag Negative; Influenza B Ag Negative; SARS-CoV-2 Antigen Rapid Res Negative (Negative)
--- NOTE | 2025-08-18 09:32 | RAD REPORT ---
EXAMINATION: ONE VIEW CHEST XR CLINICAL INDICATION: Female, 59 years old.,CHEST PAIN TECHNIQUE: Frontal chest projection is submitted. Examination is limited by patient positioning and t echnique. COMPARISON: 04/13/2025. FINDINGS: The lungs are well inflated and clear. No pneumothorax or sizable effusion. The heart is normal in s ize. Mediastinal contours are unremarkable. IMPRESSION: No acute intrathoracic abnormalities.
[2025-08-18 09:39] LABS: Absolute Lymphocytes (CBC) 2.0 K/uL (0.7-4.9); Hematocrit 43.8 % (36.0-45.0); Hemoglobin 14.7 g/dL (12.0-15.0); MCH 28.0 pg (27.0-35.0); MCHC 33.5 g/dL (32.0-36.0); MCV 83.5 fL (80-100); MPV 7.9 fL (7.6-11.3); Nucleated RBC Absolute Count 0.0 (0-0); Nucleated Red Blood Cells % 0.2 % (0-0); RBC Red Blood Cell Count 5.25 M/uL (3.86-4.86); White Blood Count 10.10 thou/uL (4.3-10.9)
[2025-08-18 09:55] LABS: ALT/SGPT 31 U/L (13-56); AST/SGOT 29 U/L (15-37); Albumin 3.3 g/dL (3.4-5.0); Albumin/Globulin Ratio 0.8 (1.1-1.8); Alkaline Phosphatase 97 U/L (45-117); Anion Gap 9.7 mEq/L (5.0-15.0); BUN Blood Urea Nitrogen 16 mg/dL (7-18); Globulin 4.4 g/dL (2.3-3.5); Glucose Level 165 mg/dL (74-106); Lipase 32 U/L (13-75); Magnesium 1.8 mg/dL (1.6-2.4); NT PRO-BNP 136 pg/mL (<125); Potassium 3.7 mEq/L (3.5-5.1); Troponin High Sensitivity 21.7 pg/mL (<58.9)
[2025-08-18 09:56] LABS: Sqamous Epithelial >50 /HPF (None Seen); Urine Crystals Unidentified Few /HPF (None Seen); Urine Culture Reflex Order REFLEXED; Urine Microscopic Reflex YN ORDER UMIC; Urine WBC Clump Rare /HPF (None Seen); Urine Yeast (Budding) Trace /HPF (None Seen)
[2025-08-18 09:58] LABS: PT Prothrombin Time 24.6 SECONDS (10-13.0); Protime INR 2.23
[2025-08-18 10:03] LABS: Bilirubin Indirect, Calculated 0.1 mg/dL (0.2-0.8)
[2025-08-18] MEDS ORDERED: SMZ./TMP. 800/160 MG TABLET ONE (10:25)
--- NOTE | 2025-08-18 10:30 | EDPHYS ---
Physician Documentation [facility] Name: Zoraida Mcleod Age: 59 yrs Sex: Female : 1965 Arrival Date: 08/18/2025 Time: 08:10 Bed 15 Private MD: ED Physician Jaclyn Rabago HPI: 08/18 08:25 This 59 yrs old Female presents to ER via Unassigned with complaints of Palpitations, sp3 Confusion. 08:25 59-year-old female with history of COPD, NC, hypertension now presents to the ED for sp3 chief complaint palpitations, not feeling well and chest pain. Symptoms started yesterday and have extended into today. Patient states that she was confused but is not currently. She denies headache, fever, throat pain, back pain, shortness of breath, cough, congestion, abdominal pain, vomiting, diarrhea, rash, syncope, near syncope, or any other signs or symptoms on ROS at this time. Her PCP is Dr. Dunbar.. Historical: - Allergies: 08:42 Morphine; iw - PMHx: 08:42 Cerebrovascular accident; COPD; Hypertensive disorder; Myocardial infarction; iw - PSHx: 08:42 cardiac stents; hernia repair; Tonsillectomy; tubal ligation; iw - Immunization history:: Adult Immunizations unknown. - Infectious Disease History:: Denies. - Social history:: Smoking status: Patient reports the use of cigarette tobacco products, smokes one-half pack cigarettes per day. ROS: 08:26 Constitutional: Negative for fever, chills, and weight loss, Eyes: Negative for injury, sp3 pain, redness, and discharge, ENT: Negative for injury, pain, and discharge, Neck: Negative for injury, pain, and swelling, Respiratory: Negative for shortness of breath, cough, wheezing, and pleuritic chest pain, Abdomen/GI: Negative for abdominal pain, nausea, vomiting, diarrhea, and constipation, Back: Negative for injury and pain, MS/Extremity: Negative for injury and deformity, Skin: Negative for injury, rash, and discoloration, Neuro: Negative for headache, weakness, numbness, tingling, and seizure, Psych: Negative for depression, anxiety, suicide ideation, homicidal ideation, and hallucinations, Allergy/Immunology: Negative for hives, rash, and allergies, Endocrine: Negative for neck swelling, polydipsia, polyuria, polyphagia, and marked weight changes, 08:26 All other systems are negative, Exam: 08:27 Constitutional: This is a well developed, well nourished patient who is awake, alert, sp3 and in no acute distress. Head/Face: Normocephalic, atraumatic. Eyes: Pupils equal round and reactive to light, extra-ocular motions intact. Lids and lashes normal. Conjunctiva and sclera are non-icteric and not injected. Cornea within normal limits. Periorbital areas with no swelling, redness, or edema. ENT: Nares patent. No nasal discharge, no septal abnormalities noted. External auditory canals are clear. Oropharynx with no redness, swelling, or masses, exudates, or evidence of obstruction, uvula midline. Mucous membranes moist. Neck: Trachea midline, no thyromegaly or masses palpated, and no cervical lymphadenopathy. Supple, full range of motion without nuchal rigidity, or vertebral point tenderness. No Meningismus. Chest/axilla: Normal chest wall appearance and motion. Nontender with no deformity. No lesions are appreciated. Cardiovascular: Regular rate and rhythm with a normal S1 and S2. No gallops, murmurs, or rubs. Normal PMI, no JVD. No pulse deficits. Respiratory: Lungs have equal breath sounds bilaterally, clear to auscultation and percussion. No rales, rhonchi or wheezes noted. No increased work of breathing, no retractions or nasal flaring. Abdomen/GI: Soft, non-tender, with normal bowel sounds. No distension or tympany. No guarding or rebound. No evidence of tenderness throughout. Back: No spinal tenderness. No costovertebral tenderness. Full range of motion. Skin: Warm, dry with normal turgor. Normal color with no rashes, no lesions, and no evidence of cellulitis. MS/ Extremity: Pulses equal, no cyanosis. Neurovascular intact. Full, normal range of motion. Neuro: Awake and alert, GCS 15, oriented to person, place, time, and situation. Cranial nerves II-XII grossly intact. Motor strength 5/5 in all extremities. Sensory grossly intact. Cerebellar exam normal. Normal gait. Psych: Awake, alert, with orientation to person, place and time. Behavior, mood, and affect are within normal limits. 08:28 ECG was reviewed by the Attending Physician. EKG demonstrates normal sinus rhythm at 85 sp3 bpm with normal intervals except QTc of 511, normal axis, normal QRS except for poor R wave progression V3-V4 and nonspecific diffuse ST/T changes without evidence of acute ischemia. Vital Signs: 08:30 BP 144 / 83; Pulse 87; Resp 18; Temp 97.7; Pulse Ox 95% on R/A; Weight 81.65 kg; Height iw 5 ft. 3 in. ; Pain 4/10; 10:19 BP 134 / 88; Pulse 75; Resp 18; Pulse Ox 100% on R/A; iw 10:38 BP 134 / 88; Pulse 76; Resp 18; Pulse Ox 97% on R/A; af3 08:30 Body Mass Index 31.89 (81.65 kg, 160.02 cm) iw 08:30 Pain Scale: Adult iw MDM: 08:19 Medical Screening Exam initiated sp3 08:27 Data reviewed: vital signs, nurses notes, lab test result(s), EKG, radiologic studies. sp3 ED course: 59-year-old female with vague symptoms of palpitations, not feeling well and mild chest pain. Differential diagnosis includes viral illness, ACS, electrolyte abnormality, dehydration, UTI, other infection, among others. Workup will include chest x-ray, EKG, general labs, viral swabs, UA and general supportive care. Vital signs are normal patient is no acute distress. Disposition pending workup and patient course.. 10:29 ED course: Workup negative. Urine is positive for UTI only. Will place on Bactrim and sp3 discharged home to PCP follow-up. Vital signs normal on discharge.. 08/18 08:23 Order name: Basic Metabolic Panel; Complete Time: 10:25 sp3 08/18 08:23 Order name: CBC with Diff; Complete Time: 10: sp3 08/18 08:23 Order name: LFT's; Complete Time: 10:25 sp3 08/18 08:23 Order name: Magnesium; Complete Time: 10:25 sp3 08/18 08:23 Order name: NT PRO-BNP; Complete Time: 10:25 sp3 08/18 08:23 Order name: PT-INR; Complete Time: 10: sp3 08/18 08:23 Order name: Troponin HS; Complete Time: 10:25 sp3 08/18 08:23 Order name: Lipase; Complete Time: 10:25 sp3 08/18 08:23 Order name: UA Rfx Darius Cult if indicated; Complete Time: 10:25 sp3 08/18 08:28 Order name: COVID-19 Ag + Flu A+B Ag; Complete Time: 09:35 sp3 08/18 10:00 Order name: Urine Culture EDMS 08/18 08:23 Order name: XRAY Chest (1 view); Complete Time: 09:35 sp3 08/18 08:23 Order name: Cardiac monitoring; Complete Time: 08:40 sp3 08/18 08:23 Order name: EKG - Nurse/Tech; Complete Time: 08:40 sp3 08/18 08:23 Order name: IV Saline Lock; Complete Time: 09:49 sp3 08/18 08:23 Order name: Labs collected and sent; Complete Time: 09:49 sp3 08/18 08:23 Order name: O2 Per Protocol; Complete Time: 08:40 sp3 08/18 08:23 Order name: O2 Sat Monitoring; Complete Time: 08:40 sp3 Administered Medications: 10:38 Drug: Trimethoprim-Sulfamethoxazole PO (160 mg-800 mg (DS) 1 tablet PO once Route: PO; af3 10:40 Follow up: Response: No adverse reaction; Medication administered at discharge. af3 Disposition Summary: 08/18/25 10:29 Discharge Ordered Notes: Location: Home sp3 Condition: Stable sp3 Diagnosis - Urinary tract infection sp3 Followup: sp3 - With: Private Physician - When: Upon discharge from the Emergency Department - Reason: Continuance of care Discharge Instructions: - Discharge Summary Sheet sp3 - Urinary Tract Infection, Adult sp3 Forms: - Medication Reconciliation Form sp3 - Antibiotic Education sp3 - Prescription Opioid Use sp3 - Patient Portal Instructions sp3 - Leadership Thank You Letter sp3 Prescriptions: - Bactrim DS 800-160 mg Oral Tablet - take 1 tablet ORAL route every 12 hours for 7 days; 14 tablet; Refills: 0, sp3 Product Selection Permitted Signatures: Dispatcher [employer] Kristin Vazquez RN RN iw Patel, Setul, MD MD sp3 Kamryn Rivera RN RN af3 Corrections: (The following items were deleted from the chart) 08:24 08:24 BASIC METABOLIC PANEL+C.LAB.BRZ ordered. EDMS EDMS 08:24 08:24 CBC+H.LAB.BRZ ordered. EDMS EDMS 08:24 08:24 HEPATIC FUNCTION+C.LAB.BRZ ordered. EDMS EDMS 08:24 08:24 MAGNESIUM+C.LAB.BRZ ordered. EDMS EDMS 08:24 08:24 PROBNP+C.LAB.BRZ ordered. EDMS EDMS 08:24 08:24 PROTIME (+INR)+COAG.LAB.BRZ ordered. EDMS EDMS 08:24 08:24 Troponin High Sensitivity+C.LAB.BRZ ordered. EDMS EDMS 08:24 08:24 LIPASE+C.LAB.BRZ ordered. EDMS EDMS 08:24 08:24 UA Rfx Darius Cult if indicated+U.LAB.BRZ ordered. EDMS EDMS 08:24 08:24 Chest Single View+RAD.RAD.BRZ ordered. EDMS EDMS
--- NOTE | 2025-08-18 10:30 | ER ---
Nurse's Notes [facility] Name: Zoraida Mcleod Age: 59 yrs Sex: Female : 1965 Arrival Date: 08/18/2025 Time: 08:10 Bed 15 Private MD: Diagnosis: Urinary tract infection Presentation: 08/18 08:30 Chief complaint: Patient states: chest pain started this morning. pt states, "I feel iw like my heart is racing" also c/o dizziness and nausea. 08:30 Coronavirus screen: nausea. Ebola Screen: No symptoms or risks identified at this time. iw Initial Sepsis Screen: Does the patient meet any 2 criteria? No. Patient's initial sepsis screen is negative. Does the patient have a suspected source of infection? No. Patient's initial sepsis screen is negative. Risk Assessment: Do you want to hurt yourself or someone else? Patient reports no desire to harm self or others. Onset of symptoms was August 18, 2025. 08:30 Method Of Arrival: Ambulatory iw 08:30 Acuity: VILLA 3 iw Triage Assessment: 08:42 General: Appears in no apparent distress. uncomfortable, well groomed, well developed, iw Behavior is calm, cooperative, appropriate for age. Pain: Complains of pain in chest Pain currently is 4 out of 10 on a pain scale. Pain began 30 min ago. Neuro: Level of Consciousness is awake, alert, obeys commands, Oriented to person, place, time, situation, Appropriate for age. Cardiovascular: Patient's skin is warm and dry. Respiratory: Airway is patent Respiratory effort is even, unlabored, Respiratory pattern is regular, symmetrical. Historical: - Allergies: 08:42 Morphine; iw - PMHx: 08:42 Cerebrovascular accident; COPD; Hypertensive disorder; Myocardial infarction; iw - PSHx: 08:42 cardiac stents; hernia repair; Tonsillectomy; tubal ligation; iw - Immunization history:: Adult Immunizations unknown. - Infectious Disease History:: Denies. - Social history:: Smoking status: Patient reports the use of cigarette tobacco products, smokes one-half pack cigarettes per day. Screenin:43 [facility] ED Fall Risk Assessment (Adult) History of falling in the last 3 months, iw including since admission No falls in past 3 months (0 pts) Confusion or Disorientation No (0 pts) Intoxicated or Sedated No (0 pts) Impaired Gait No (0 pts) Mobility Assist Device Used No (0 pt) Altered Elimination No (0 pt) Score/Fall Risk Level 0 - 2 = Low Risk Oriented to surroundings, Maintained a safe environment, Educated pt \\T\\ family on fall prevention, incl call for assistance when getting out of bed. Abuse screen: Denies threats or abuse. Denies injuries from another. Nutritional screening: No deficits noted. Tuberculosis screening: No symptoms or risk factors identified. Assessment: 08:43 General: see triage assessment . iw 10:20 Reassessment: Patient appears in no apparent distress at this time. Patient and/or iw family updated on plan of care and expected duration. Pain level reassessed. Patient is alert, oriented x 3, equal unlabored respirations, skin warm/dry/pink. 10:38 Reassessment: Patient appears in no apparent distress at this time. No changes from af3 previously documented assessment. Patient and/or family updated on plan of care and expected duration. Pain level reassessed. Patient is alert, oriented x 3, equal unlabored respirations, skin warm/dry/pink. Vital Signs: 08:30 BP 144 / 83; Pulse 87; Resp 18; Temp 97.7; Pulse Ox 95% on R/A; Weight 81.65 kg; Height iw 5 ft. 3 in. ; Pain 4/10; 10:19 BP 134 / 88; Pulse 75; Resp 18; Pulse Ox 100% on R/A; iw 10:38 BP 134 / 88; Pulse 76; Resp 18; Pulse Ox 97% on R/A; af3 08:30 Body Mass Index 31.89 (81.65 kg, 160.02 cm) iw 08:30 Pain Scale: Adult iw ED Course: 08:12 Patient arrived in ED. mr 08:15 Jaclyn Rabago MD is Attending Physician. sp3 08:16 Kamryn Rivera, XU is Primary Nurse. af3 08:42 Triage completed. iw 08:42 Arm band placed on. iw 08:43 Patient has correct armband on for positive identification. Bed in low position. Call iw light in reach. Provided Education on: call light use . 08:43 No provider procedures requiring assistance completed. Missed attempt(s): 20 gauge in iw left antecubital area. Bleeding controlled, band aid applied, catheter tip intact. 09:05 XRAY Chest (1 view) In Process Unspecified. EDMS 09:12 Missed attempt(s): 22 gauge in right wrist. Bleeding controlled, band aid applied, iw catheter tip intact. 10:40 Patient did not have IV access during this emergency room visit. intact, bleeding af3 controlled, No redness/swelling at site. Pressure dressing applied. Administered Medications: 10:38 Drug: Trimethoprim-Sulfamethoxazole PO (160 mg-800 mg (DS) 1 tablet PO once Route: PO; af3 10:40 Follow up: Response: No adverse reaction; Medication administered at discharge. af3 Medication: 08:43 VIS not applicable for this client. iw Outcome: 10:29 Discharge ordered by . sp3 10:39 Discharged to home ambulatory, af3 10:39 Condition: stable 10:39 Discharge instructions given to patient, Instructed on discharge instructions, follow up and referral plans. medication usage, Demonstrated understanding of instructions, follow-up care, medications, Prescriptions given X 1, 10:40 Patient left the ED. af3 Signatures: Dispatcher [employer] EDMS Yamila Giang, Reg Reg Kristin Castillo, RN RN iw Jaclyn Rabago MD MD sp3 Kamryn Rivera RN RN af3
[2025-08-18 10:44] VITALS: TEMP 97.7
[2025-08-18 10:46] VITALS: BP 134/88
[2025-08-18 10:47] VITALS: O2SAT 97
== END 2025-08-18 10:40 | disposition home or self-care (01) ==
LOC: ER 08:10
DX: N39.0 Urinary tract infection, site not specified (principal); R07.9 Chest pain, unspecified; I10 Essential (primary) hypertension; J44.9 Chronic obstructive pulmonary disease, unspecified; I25.2 Old myocardial infarction; F17.210 Nicotine dependence, cigarettes, uncomplicated; Z95.818 Presence of other cardiac implants and grafts; Z11.52 Encounter for screening for COVID-19
CPT/HCPCS: 36415; 71045; 80048; 80076; 81001; 83690; 83735; 83880; 84484; 85025; 85610; 87086; 87088; 87428; 93005; 99283